=== PATIENT | male | born 1935 | race Caucasian/White ===

== ENCOUNTER 2023-03-24 07:58 | Outpatient (RCR) | payer MEDICARE, SELFPAY ==
[2023-03-24 09:38] LABS: MANUAL DIFF FLAG NO
[2023-03-24 09:48] LABS: Basophils Percent Auto 0.2 % (0-2); Eosinophils Absolute Auto 0.3 X10*3/uL (0.0-0.4); Eosinophils Percent Auto 3.2 % (0-4); Hematocrit 39.3 % (42.0-52.0); Hemoglobin 12.7 g/dl (14.0-18.0); Imm Gran Abs Auto 0.03 X10*3/uL (0.00-0.03); Imm Gran Pct Auto 0.4 % (0.0-0.4); Lymphocytes Absolute Auto 1.1 X10*3/uL (1.2-4.9); Lymphocytes Percent Auto 14.1 % (20-40); Mean Corpuscular HGB Conc 32.3 g/dl (31.0-36.0); Mean Corpuscular Hemoglobin 29.9 pg (27.0-33.0); Mean Corpuscular Volume 92.5 fL (80.0-98.0); Monocytes Absolute Auto 0.8 X10*3/uL (0.1-1.2); Monocytes Percent Auto 9.5 % (2-11); Neutrophils Absolute Auto 5.9 x10*3/uL (2.0-8.3); Neutrophils Percent Auto 72.6 % (45-73); Platelet Count 217 X10*3/uL (160-400); Red Blood Count 4.25 X10*6/uL (4.60-5.80); Red Cell Distribution Width 13.4 % (11.0-16.0); White Blood Count 8.1 X10*3/uL (4.8-10.8)
[2023-03-24 10:09] LABS: Estimated Average Glucose 131 mg/dL; Hemoglobin A1c % 6.2 %
[2023-03-24 10:26] LABS: Erythrocyte Sedimentation Rate 23 MM/HR (0-15)
[2023-03-24 10:33] LABS: Anion Gap 14 (12-20); Blood Urea Nitrogen 16 mg/dL (9-16); C Reactive Protein < 0.10 mg/dL (< or = 0.50); Calcium 9.3 mg/dL (8.4-10.2); Carbon Dioxide 25 mmol/L (22-29); Chloride 106 mmol/L (96-108); Estimated Glomerular Filt Rate > 60; Glucose Random 135 mg/dL (60-115); Potassium 4.6 mmol/L (3.3-5.1); Sodium 140 mmol/L (135-145)
== END 2023-07-14 10:15 | disposition home or self-care (01) ==
LOC: HO.WCC 07:58
PROVIDERS: Visit Provider Physician Assistant
DX: Z09 Encounter for follow-up examination after completed treatment for conditions other than malignant neoplasm (principal); I73.9 Peripheral vascular disease, unspecified; G60.9 Hereditary and idiopathic neuropathy, unspecified; M86.471 Chronic osteomyelitis with draining sinus, right ankle and foot; L60.2 Onychogryphosis; I10 Essential (primary) hypertension; Z87.891 Personal history of nicotine dependence; Z87.2 Personal history of diseases of the skin and subcutaneous tissue
CPT/HCPCS: 11042; 36415; 73630; 80048; 83036; 84134; 85025; 85652; 86140; 97597; 99212

== ENCOUNTER 2023-05-08 13:06 | Outpatient (AMB) | payer MEDICARE, SELFPAY ==
[2023-05-08 13:28] VITALS: BP 130/70; PULSE 68; O2SAT 95; BMI 27.3
--- NOTE | 2023-05-08 13:28 | A.OFFVIS_ITS ---
Intake Vital Signs 05/08/23 13:28 Height 5 ft 5 in Weight 164 lb BMI 27.3 BP 130/70 Blood Pressure Location Lt brachial Position Sitting Pulse 68 Pulse Source Pulse Oximeter Pulse Oximetry (%) 95 Intake Visit Reasons: Ref.wound care,Osteomyelitis/R.great toe ulcer Allergies No Known Allergies Allergy (Verified 05/08/23 13:36) HPI Ref.wound care,Osteomyelitis/R.great toe ulcer HPI Details He presents with right great toe ulcer. He is a referral from [facility]. He has XR right great toe shows OM. He has had ulcer since January. He has OM distal great toe on right toe. [facility] Medical History (Updated 05/10/23 @ 22:36 by Bella Leblanc MD) Peripheral vascular disease Surgical History (Updated 05/10/23 @ 22:39 by Bella Leblanc MD) Osteomyelitis Review of Systems Const All systems reviewed & are unremarkable except as noted in HPI and below Physical Exam Vital Signs: Last Vital Signs Pulse 68 05/08/23 13:28 BP 130/70 05/08/23 13:28 Pulse Ox 95 05/08/23 13:28 BMI result Body Mass Index 27.3 Const Other: General: cooperative Orientation/consciousness: patient oriented x3 HEENT Head: Yes normal to inspection Mouth: Normal oral and palatal mucosa present Eyes General: appearance normal, both eyes and all related structures Pupils: Equal, round and reactive pupils present Resp Effort & Inspection: normal respiratory effort Cardio Rate: regular rate Rhythm: regular rhythm GI Palpation (GI): Soft to palpation and nontender General: Yes no CVA tenderness Back/Spine/Pelvis Back: no CVA tenderness Skin General skin exam: no rashes or lesions noted Neuro General: patient oriented x3 Cranial nerves: Yes CN's II-XII intact bilaterally and Yes Equal, round and reactive pupils present Extrem Other: right great toe ulcer neuropathy pulses Psych Appearance: grossly normal Assessment & Plan Assessment & Plan (1) Osteomyelitis: Comment: He has OM and creatinine .7 so can take full dose antibiotics. He has no specific organism offered. Code(s): M86.9 - Osteomyelitis, unspecified Plan: Ertapenem daily for six weeks. Check weekly CBC,creatinine and SGOT. Orders: Orders Creatinine 05/08/23 M86.9 - Osteomyelitis, unspecified Complete Blood Count Auto Diff 05/08/23 M86.9 - Osteomyelitis, unspecified Erythrocyte Sedimentation Rate 05/08/23 M86.9 - Osteomyelitis, unspecified IR cvc insert peripheral 05/08/23 M86.9 - Osteomyelitis, unspecified Medications: New ertapenem 1 g IV Q24H 42 days 42 ea 0RF ertapenem 1 g IV Q24H 42 days 42 ea 0RF ertapenem 1 g IV Q24H 42 days 42 ea 0RF ertapenem 1 g IV Q24H 42 days 42 ea 0RF Coding Level of Care Code New Pt Level 3 (84460) Diagnoses Osteomyelitis M86.9
== END 2023-05-08 13:57 | disposition home or self-care (01) ==
LOC: HO.HID 13:06
PROVIDERS: Visit Provider Internal Medicine
DX: M86.9 Osteomyelitis, unspecified (principal)
CPT/HCPCS: 99203

== ENCOUNTER 2023-05-08 13:06 | Outpatient (REF) | payer MEDICARE, SELFPAY ==
[2023-05-08 14:10] LABS: MANUAL DIFF FLAG NO
[2023-05-08 14:24] LABS: Basophils Percent Auto 0.2 % (0-2); Eosinophils Absolute Auto 0.1 X10*3/uL (0.0-0.4); Eosinophils Percent Auto 1.4 % (0-4); Hematocrit 37.9 % (42.0-52.0); Hemoglobin 12.2 g/dl (14.0-18.0); Imm Gran Abs Auto 0.04 X10*3/uL (0.00-0.03); Imm Gran Pct Auto 0.4 % (0.0-0.4); Lymphocytes Absolute Auto 1.4 X10*3/uL (1.2-4.9); Lymphocytes Percent Auto 15.6 % (20-40); Mean Corpuscular HGB Conc 32.2 g/dl (31.0-36.0); Mean Corpuscular Hemoglobin 29.4 pg (27.0-33.0); Mean Corpuscular Volume 91.3 fL (80.0-98.0); Mean Platelet Volume 8.9 fL (9.4-12.4); Monocytes Absolute Auto 0.9 X10*3/uL (0.1-1.2); Monocytes Percent Auto 9.7 % (2-11); Neutrophils Absolute Auto 6.7 x10*3/uL (2.0-8.3); Neutrophils Percent Auto 72.7 % (45-73); Platelet Count 204 X10*3/uL (160-400); Red Blood Count 4.15 X10*6/uL (4.60-5.80); Red Cell Distribution Width 13.6 % (11.0-16.0); White Blood Count 9.3 X10*3/uL (4.8-10.8)
[2023-05-08 15:06] LABS: Erythrocyte Sedimentation Rate 21 MM/HR (0-15)
[2023-05-08 15:21] LABS: Estimated Glomerular Filt Rate > 60
--- NOTE | 2023-05-13 15:28 | PC.NURSE ---
This RN called Pt today offering to place PICC line that was ordered by Dr. Leblanc for treatment of osteomyelitis. Pt declined offer for placement today and stated that he needed to talk to my other doctor, im not sure i want to do this this RN offered to answer any questions regarding the PICC line and stressed the importance of treatment, pt declined. Dr Leblanc made aware.
== END 2023-05-08 13:07 | disposition home or self-care (01) ==
LOC: HO.LAB 13:06
PROVIDERS: Visit Provider Internal Medicine
DX: M86.9 Osteomyelitis, unspecified (principal); L97.519 Non-pressure chronic ulcer of other part of right foot with unspecified severity
CPT/HCPCS: 36415; 82565; 85025; 85652; 99202

== ENCOUNTER → 2023-06-02 08:29 | Day surgery (SDC) | payer MEDICARE, SELFPAY ==
--- NOTE | 2023-06-02 16:47 | P.PICC_ITS ---
PICC Line Insertion NPICC Diagnosis: Osteomyelitis Indication: Alf antibiotics needed Pertinent Labs: reviewed Technique: Following informed consent including risks, benefits and alternatives and using sterile technique including cap and mask, sterile gown, glove and drape, the right arm was prepped and draped in the usual sterile fashion of full barrier technique with CHG. Following completion of [place] Protocol the skin and soft tissues were anesthetized with 1% Lidocaine plain. Using ultrasound guidance, right basilic, brachial and cephalic vein access was obtained by Kaylynn Mcmillan RN, but unable to pass guidewire. Sterile field was broken down and new sterile field set up on left arm. Left basilic and brachial veins were accessed several times by Kaylynn Mcmillan RN and Nasreen Wilkins RN, but not able to advance guidewire. Left Brachial vein was accessed by Dr Aragon. Over an 0.018 wire through peel-away sheath, a 4FR single lumen PASV PICC line was positioned. Catheter length is 43 CM internal length, PICC is at the 0 CM external irais, for a total trimmed length of 43 CM. The procedure was performed in S272. Tip verification was performed by Mishel Cuevas with Sherlock 3CG. Tip located in SVC. Ultrasound was used to document vein patency and for needle entry. A formal ultrasound picture and cardiac rhythm strip was recorded. Vascular Log Stacker Operator has released the line for use and it is currently dressed with a StatLock, Tegaderm, and CHG disc. Verification has been performed for blood return and line patency. Arm Circumference: 24 CM Equipment: [employer] SOLO Catheter Type: 4FR single lumen PASV PICC Lot #: [id number]
== END ==
PROVIDERS: Radiology Vascular & Interventional Radiology; PCP Internal Medicine; Visit Provider Internal Medicine
DX: M86.9 Osteomyelitis, unspecified (principal)
CPT/HCPCS: 36573; 96365; C1751; J1335

== ENCOUNTER 2023-06-02 15:41 | Outpatient (REF) | payer MEDICARE, SELFPAY | END 2023-06-02 15:42 | disposition home or self-care (01) | LOC: HO.MDS 15:41 | PROVIDERS: Visit Provider Internal Medicine | DX: M86.9 Osteomyelitis, unspecified (principal) | CPT/HCPCS: J1335 ==

== ENCOUNTER 2023-06-03 10:59 | Outpatient (REF) | payer MEDICARE, SELFPAY | END 2023-06-03 11:00 | disposition home or self-care (01) | LOC: HO.MDS 10:59 | PROVIDERS: Visit Provider Internal Medicine | DX: M86.9 Osteomyelitis, unspecified (principal) | CPT/HCPCS: 96365; J1335 ==

== ENCOUNTER 2023-06-04 10:48 | Outpatient (REF) | payer MEDICARE, SELFPAY | END 2023-06-04 10:49 | disposition home or self-care (01) | LOC: HO.MDS 10:48 | PROVIDERS: Visit Provider Internal Medicine | DX: M86.9 Osteomyelitis, unspecified (principal) | CPT/HCPCS: 96365; J1335 ==

== ENCOUNTER 2023-06-05 10:56 | Outpatient (REF) | payer MEDICARE, SELFPAY | END 2023-06-05 10:57 | disposition home or self-care (01) | LOC: HO.MDS 10:56 | PROVIDERS: Visit Provider Internal Medicine | DX: M86.9 Osteomyelitis, unspecified (principal) | CPT/HCPCS: 96365; J1335 ==

== ENCOUNTER 2023-06-06 09:56 | Outpatient (REF) | payer MEDICARE, SELFPAY | END 2023-06-06 09:57 | disposition home or self-care (01) | LOC: HO.MDS 09:56 | PROVIDERS: PCP Internal Medicine; Visit Provider Internal Medicine | DX: M86.9 Osteomyelitis, unspecified (principal) | CPT/HCPCS: 96365; J1335 ==

== ENCOUNTER 2023-06-07 09:53 | Outpatient (REF) | payer MEDICARE, SELFPAY | END 2023-06-07 09:54 | disposition home or self-care (01) | LOC: HO.MDS 09:53 | PROVIDERS: Visit Provider Internal Medicine | DX: M86.9 Osteomyelitis, unspecified (principal) | CPT/HCPCS: 96365; J1335 ==

== ENCOUNTER 2023-06-08 10:53 | Outpatient (REF) | payer MEDICARE, SELFPAY | END 2023-06-08 10:54 | disposition home or self-care (01) | LOC: HO.MDS 10:53 | PROVIDERS: Visit Provider Internal Medicine | DX: M86.9 Osteomyelitis, unspecified (principal) | CPT/HCPCS: 96365; J1335 ==

== ENCOUNTER 2023-06-09 10:50 | Outpatient (REF) | payer MEDICARE, SELFPAY | END 2023-06-09 10:51 | disposition home or self-care (01) | LOC: HO.MDS 10:50 | PROVIDERS: Visit Provider Internal Medicine | DX: M86.9 Osteomyelitis, unspecified (principal) | CPT/HCPCS: 96365; J1335 ==

== ENCOUNTER 2023-06-10 10:28 | Outpatient (REF) | payer MEDICARE, SELFPAY | END 2023-06-10 10:29 | disposition home or self-care (01) | LOC: HO.MDS 10:28 | PROVIDERS: Visit Provider Internal Medicine | DX: M86.9 Osteomyelitis, unspecified (principal) | CPT/HCPCS: 36415; 80076; 96365; 99212; J1335 ==

== ENCOUNTER 2023-06-10 11:20 | Outpatient (AMB) | payer MEDICARE, SELFPAY ==
--- NOTE | 2023-06-10 11:28 | A.OFFVIS_ITS ---
Intake Vital Signs 3 06/10/23 11:29 Height 5 ft 5 in Weight 158 lb BMI 26.3 BP 110/80 Blood Pressure Location Rt brachial Position Sitting Pulse 70 Pulse Source Pulse Oximeter Pulse Oximetry (%) 98 Intake Visit Reasons: f/u 2 wks.lab Allergies No Known Allergies Allergy (Verified 05/08/23 13:36) HPI f/u 2 wks.lab 2 HPI0 Details He is finishing Ertapenem. He has no complaints. [facility] Medical History (Updated 05/10/23 @ 22:36 by Bella Leblanc MD) Peripheral vascular disease Surgical History Osteomyelitis Social History Advance Directives Date on File: 06/02/23 Review of Systems Const All systems reviewed & are unremarkable except as noted in HPI and below Physical Exam Vital Signs: Last Vital Signs Pulse 70 06/10/23 11:29 BP 110/80 06/10/23 11:29 Pulse Ox 98 06/10/23 11:29 BMI result Body Mass Index 26.3 Const Other: General: cooperative Orientation/consciousness: patient oriented x3 HEENT Head: Yes normal to inspection Mouth: Normal oral and palatal mucosa present Eyes General: appearance normal, both eyes and all related structures Pupils: Equal, round and reactive pupils present Resp Effort & Inspection: normal respiratory effort Cardio Rate: regular rate Rhythm: regular rhythm GI Palpation (GI): Soft to palpation and nontender General: Yes no CVA tenderness Back/Spine/Pelvis Back: no CVA tenderness Skin General skin exam: no rashes or lesions noted Neuro General: patient oriented x3 Cranial nerves: Yes CN's II-XII intact bilaterally and Yes Equal, round and reactive pupils present Extrem Other: improved area lower extremity General: Yes normal to inspection Psych Appearance: grossly normal Assessment & Plan Assessment & Plan (1) Osteomyelitis: Comment: He has OM and creatinine .7 so can take full dose antibiotics. He has no specific organism offered. Code(s): M86.9 - Osteomyelitis, unspecified Plan: Continue Ertapenem. Check labs as directed. See as scheduled Orders: Orders 2 Creatinine 06/16/23 M86.9 - Osteomyelitis, unspecified Complete Blood Count Auto Diff 2 Weeks M86.9 - Osteomyelitis, unspecified Creatinine 2 Weeks M86.9 - Osteomyelitis, unspecified Complete Blood Count Auto Diff 3 Weeks M86.9 - Osteomyelitis, unspecified Creatinine 3 Weeks M86.9 - Osteomyelitis, unspecified Liver Panel 06/10/23 M86.9 - Osteomyelitis, unspecified Complete Blood Count Auto Diff 4 Weeks M86.9 - Osteomyelitis, unspecified Liver Panel 4 Weeks M86.9 - Osteomyelitis, unspecified Complete Blood Count Auto Diff 06/16/23 M86.9 - Osteomyelitis, unspecified Liver Panel 06/16/23 M86.9 - Osteomyelitis, unspecified Liver Panel 2 Weeks M86.9 - Osteomyelitis, unspecified Creatinine 4 Weeks M86.9 - Osteomyelitis, unspecified Coding Level of Care Code Est Pt Level 3 (68676) Diagnoses Osteomyelitis M86.9
[2023-06-10 11:29] VITALS: BP 110/80; PULSE 70; O2SAT 98; BMI 26.3
== END 2023-06-10 15:11 | disposition home or self-care (01) ==
LOC: HO.HID 11:20
PROVIDERS: PCP Internal Medicine; Visit Provider Internal Medicine
DX: M86.9 Osteomyelitis, unspecified (principal)
CPT/HCPCS: 99213

== ENCOUNTER 2023-06-10 12:03 | Outpatient (REF) | payer MEDICARE, SELFPAY ==
[2023-06-10 13:59] LABS: Alanine Aminotransferase 79 U/L (0-40); Albumin Level 3.9 g/dL (3.5-5.0); Alkaline Phosphatase 73 U/L (39-117); Aspartate Amino Transferase 58 U/L (5-37); Bilirubin Direct 0.3 mg/dL (0.0-0.5); Bilirubin Total 0.7 mg/dL (0.0-1.0); Total Protein 7.1 g/dL (6.5-8.0)
== END 2023-06-10 12:04 | disposition home or self-care (01) ==
LOC: HO.LAB 12:03
PROVIDERS: PCP Internal Medicine; Visit Provider Internal Medicine
DX: Z13.89 Encounter for screening for other disorder (principal)
CPT/HCPCS: 36415; 80076

== ENCOUNTER 2023-06-11 10:47 | Outpatient (REF) | payer MEDICARE, SELFPAY | END 2023-06-11 10:48 | disposition home or self-care (01) | LOC: HO.MDS 10:47 | PROVIDERS: Visit Provider Internal Medicine | DX: M86.9 Osteomyelitis, unspecified (principal) | CPT/HCPCS: 96365; J1335 ==

== ENCOUNTER 2023-06-12 13:04 | Outpatient (REF) | payer MEDICARE, SELFPAY | END 2023-06-12 13:05 | disposition home or self-care (01) | LOC: HO.MDS 13:04 | PROVIDERS: Visit Provider Internal Medicine | DX: M86.9 Osteomyelitis, unspecified (principal) | CPT/HCPCS: 96365; J1335 ==

== ENCOUNTER 2023-06-13 09:50 | Outpatient (REF) | payer MEDICARE, SELFPAY | END 2023-06-13 09:51 | disposition home or self-care (01) | LOC: HO.MDS 09:50 | PROVIDERS: PCP Internal Medicine Medical Oncology; Visit Provider Internal Medicine | DX: M86.9 Osteomyelitis, unspecified (principal) | CPT/HCPCS: 96365; J1335 ==

== ENCOUNTER 2023-06-14 09:20 | Outpatient (REF) | payer MEDICARE, SELFPAY | END 2023-06-14 09:21 | disposition home or self-care (01) | LOC: HO.MDS 09:20 | PROVIDERS: Visit Provider Internal Medicine | DX: M86.9 Osteomyelitis, unspecified (principal) | CPT/HCPCS: 96365; J1335 ==

== ENCOUNTER 2023-06-15 10:52 | Outpatient (REF) | payer MEDICARE, SELFPAY | END 2023-06-15 10:53 | disposition home or self-care (01) | LOC: HO.MDS 10:52 | PROVIDERS: Visit Provider Internal Medicine | DX: M86.9 Osteomyelitis, unspecified (principal) | CPT/HCPCS: 96365; J1335 ==

== ENCOUNTER 2023-06-16 10:00 | Outpatient (REF) | payer MEDICARE, SELFPAY ==
[2023-06-16 10:21] LABS: MANUAL DIFF FLAG NO
[2023-06-16 10:42] LABS: Basophils Percent Auto 0.3 % (0-2); Eosinophils Absolute Auto 0.2 X10*3/uL (0.0-0.4); Eosinophils Percent Auto 2.8 % (0-4); Hematocrit 37.6 % (42.0-52.0); Imm Gran Abs Auto 0.03 X10*3/uL (0.00-0.03); Imm Gran Pct Auto 0.5 % (0.0-0.4); Lymphocytes Absolute Auto 1.3 X10*3/uL (1.2-4.9); Lymphocytes Percent Auto 19.9 % (20-40); Mean Corpuscular HGB Conc 31.9 g/dl (31.0-36.0); Mean Corpuscular Hemoglobin 29.9 pg (27.0-33.0); Mean Corpuscular Volume 93.8 fL (80.0-98.0); Mean Platelet Volume 9.8 fL (9.4-12.4); Monocytes Absolute Auto 0.7 X10*3/uL (0.1-1.2); Monocytes Percent Auto 10.1 % (2-11); Neutrophils Absolute Auto 4.3 x10*3/uL (2.0-8.3); Neutrophils Percent Auto 66.4 % (45-73); Platelet Count 182 X10*3/uL (160-400); Red Blood Count 4.01 X10*6/uL (4.60-5.80); Red Cell Distribution Width 13.7 % (11.0-16.0); White Blood Count 6.4 X10*3/uL (4.8-10.8)
[2023-06-16 11:48] LABS: Alanine Aminotransferase 140 U/L (0-40); Albumin Level 3.6 g/dL (3.5-5.0); Alkaline Phosphatase 75 U/L (39-117); Aspartate Amino Transferase 88 U/L (5-37); Bilirubin Direct 0.3 mg/dL (0.0-0.5); Bilirubin Total 0.6 mg/dL (0.0-1.0); Estimated Glomerular Filt Rate > 60; Total Protein 6.6 g/dL (6.5-8.0)
== END 2023-06-16 10:01 | disposition home or self-care (01) ==
LOC: HO.MDS 10:00
PROVIDERS: PCP Internal Medicine Medical Oncology; Visit Provider Internal Medicine
DX: M86.9 Osteomyelitis, unspecified (principal)
CPT/HCPCS: 36415; 80076; 82565; 85025; 96365; J1335

== ENCOUNTER 2023-06-17 10:51 | Outpatient (REF) | payer MEDICARE, SELFPAY | END 2023-06-17 10:52 | disposition home or self-care (01) | LOC: HO.MDS 10:51 | PROVIDERS: Visit Provider Internal Medicine | DX: M86.9 Osteomyelitis, unspecified (principal) | CPT/HCPCS: 96365; J1335 ==

== ENCOUNTER 2023-06-18 10:51 | Outpatient (REF) | payer MEDICARE, SELFPAY | END 2023-06-18 10:52 | disposition home or self-care (01) | LOC: HO.MDS 10:51 | PROVIDERS: Visit Provider Internal Medicine | DX: M86.9 Osteomyelitis, unspecified (principal) | CPT/HCPCS: 96365; J1335 ==

== ENCOUNTER 2023-06-19 10:47 | Outpatient (REF) | payer MEDICARE, SELFPAY | END 2023-06-19 10:48 | disposition home or self-care (01) | LOC: HO.MDS 10:47 | PROVIDERS: Visit Provider Internal Medicine | DX: M86.9 Osteomyelitis, unspecified (principal) | CPT/HCPCS: 96365; J1335 ==

== ENCOUNTER 2023-06-20 09:56 | Outpatient (REF) | payer MEDICARE, SELFPAY | END 2023-06-20 09:57 | disposition home or self-care (01) | LOC: HO.MDS 09:56 | PROVIDERS: Visit Provider Internal Medicine | DX: M86.9 Osteomyelitis, unspecified (principal) | CPT/HCPCS: 96365; J1335 ==

== ENCOUNTER 2023-06-21 09:20 | Outpatient (REF) | payer MEDICARE, SELFPAY | END 2023-06-21 09:21 | disposition home or self-care (01) | LOC: HO.MDS 09:20 | PROVIDERS: PCP Internal Medicine Medical Oncology; Visit Provider Internal Medicine | DX: M86.9 Osteomyelitis, unspecified (principal) | CPT/HCPCS: 96365; J1335 ==

== ENCOUNTER 2023-06-22 10:50 | Outpatient (REF) | payer MEDICARE, SELFPAY | END 2023-06-22 10:51 | disposition home or self-care (01) | LOC: HO.MDS 10:50 | PROVIDERS: Visit Provider Internal Medicine | DX: M86.9 Osteomyelitis, unspecified (principal) | CPT/HCPCS: 96365; J1335 ==

== ENCOUNTER 2023-06-23 10:04 | Outpatient (REF) | payer MEDICARE, SELFPAY ==
[2023-06-23 10:21] LABS: MANUAL DIFF FLAG NO
[2023-06-23 10:34] LABS: Basophils Percent Auto 0.4 % (0-2); Eosinophils Absolute Auto 0.2 X10*3/uL (0.0-0.4); Eosinophils Percent Auto 4.1 % (0-4); Hematocrit 38.7 % (42.0-52.0); Hemoglobin 12.4 g/dl (14.0-18.0); Imm Gran Abs Auto 0.02 X10*3/uL (0.00-0.03); Imm Gran Pct Auto 0.4 % (0.0-0.4); Lymphocytes Absolute Auto 1.3 X10*3/uL (1.2-4.9); Lymphocytes Percent Auto 23.7 % (20-40); Mean Corpuscular Hemoglobin 30.1 pg (27.0-33.0); Mean Corpuscular Volume 93.9 fL (80.0-98.0); Mean Platelet Volume 9.7 fL (9.4-12.4); Monocytes Absolute Auto 0.6 X10*3/uL (0.1-1.2); Monocytes Percent Auto 11.2 % (2-11); Neutrophils Absolute Auto 3.4 x10*3/uL (2.0-8.3); Neutrophils Percent Auto 60.2 % (45-73); Platelet Count 169 X10*3/uL (160-400); Red Blood Count 4.12 X10*6/uL (4.60-5.80); Red Cell Distribution Width 13.5 % (11.0-16.0); White Blood Count 5.6 X10*3/uL (4.8-10.8)
[2023-06-23 11:10] LABS: Alanine Aminotransferase 107 U/L (0-40); Albumin Level 3.7 g/dL (3.5-5.0); Alkaline Phosphatase 81 U/L (39-117); Aspartate Amino Transferase 67 U/L (5-37); Bilirubin Direct 0.2 mg/dL (0.0-0.5); Bilirubin Total 0.6 mg/dL (0.0-1.0); Estimated Glomerular Filt Rate > 60; Total Protein 6.8 g/dL (6.5-8.0)
== END 2023-06-23 10:05 | disposition home or self-care (01) ==
LOC: HO.MDS 10:04
PROVIDERS: PCP Internal Medicine; Visit Provider Internal Medicine
DX: M86.9 Osteomyelitis, unspecified (principal)
CPT/HCPCS: 36415; 80076; 82565; 85025; 96365; J1335

== ENCOUNTER → 2023-06-23 10:23 | Day surgery (SDC) | payer MEDICARE, SELFPAY | PROVIDERS: PCP Internal Medicine; Visit Provider Internal Medicine | DX: M86.9 Osteomyelitis, unspecified (principal) ==

== ENCOUNTER 2023-06-24 10:46 | Outpatient (REF) | payer MEDICARE, SELFPAY | END 2023-06-24 10:47 | disposition home or self-care (01) | LOC: HO.MDS 10:46 | PROVIDERS: PCP Internal Medicine; Visit Provider Internal Medicine | DX: M86.9 Osteomyelitis, unspecified (principal) | CPT/HCPCS: 96365; J1335 ==

== ENCOUNTER 2023-06-25 10:51 | Outpatient (REF) | payer MEDICARE, SELFPAY | END 2023-06-25 10:52 | disposition home or self-care (01) | LOC: HO.MDS 10:51 | PROVIDERS: Visit Provider Internal Medicine | DX: M86.9 Osteomyelitis, unspecified (principal) | CPT/HCPCS: 96365; J1335 ==

== ENCOUNTER 2023-06-26 10:47 | Outpatient (REF) | payer MEDICARE, SELFPAY | END 2023-06-26 10:48 | disposition home or self-care (01) | LOC: HO.MDS 10:47 | PROVIDERS: Visit Provider Internal Medicine | DX: M86.9 Osteomyelitis, unspecified (principal) | CPT/HCPCS: 96365; J1335 ==

== ENCOUNTER 2023-06-27 09:54 | Outpatient (REF) | payer MEDICARE, SELFPAY | END 2023-06-27 09:55 | disposition home or self-care (01) | LOC: HO.MDS 09:54 | PROVIDERS: Visit Provider Internal Medicine | DX: M86.9 Osteomyelitis, unspecified (principal) | CPT/HCPCS: 96365; J1335 ==

== ENCOUNTER 2023-06-28 09:16 | Outpatient (REF) | payer MEDICARE, SELFPAY | END 2023-06-28 09:17 | disposition home or self-care (01) | LOC: HO.MDS 09:16 | PROVIDERS: Visit Provider Internal Medicine | DX: M86.9 Osteomyelitis, unspecified (principal) | CPT/HCPCS: 96365; J1335 ==

== ENCOUNTER 2023-06-29 10:51 | Outpatient (REF) | payer MEDICARE, SELFPAY | END 2023-06-29 10:52 | disposition home or self-care (01) | LOC: HO.MDS 10:51 | PROVIDERS: Visit Provider Internal Medicine | DX: M86.9 Osteomyelitis, unspecified (principal) | CPT/HCPCS: 96365; J1335 ==

== ENCOUNTER 2023-06-30 10:22 | Outpatient (REF) | payer MEDICARE, SELFPAY ==
[2023-06-30 10:38] LABS: MANUAL DIFF FLAG NO
[2023-06-30 12:47] LABS: Basophils Percent Auto 0.2 % (0-2); Eosinophils Absolute Auto 0.2 X10*3/uL (0.0-0.4); Eosinophils Percent Auto 4.3 % (0-4); Hematocrit 38.7 % (42.0-52.0); Hemoglobin 12.4 g/dl (14.0-18.0); Imm Gran Abs Auto 0.02 X10*3/uL (0.00-0.03); Imm Gran Pct Auto 0.4 % (0.0-0.4); Lymphocytes Absolute Auto 1.4 X10*3/uL (1.2-4.9); Mean Corpuscular Hemoglobin 29.5 pg (27.0-33.0); Mean Corpuscular Volume 92.1 fL (80.0-98.0); Mean Platelet Volume 10.1 fL (9.4-12.4); Monocytes Absolute Auto 0.5 X10*3/uL (0.1-1.2); Monocytes Percent Auto 9.6 % (2-11); Neutrophils Absolute Auto 3.4 x10*3/uL (2.0-8.3); Neutrophils Percent Auto 60.5 % (45-73); Platelet Count 153 X10*3/uL (160-400); Red Cell Distribution Width 13.3 % (11.0-16.0); White Blood Count 5.6 X10*3/uL (4.8-10.8)
[2023-06-30 13:29] LABS: Alanine Aminotransferase 75 U/L (0-40); Albumin Level 3.7 g/dL (3.5-5.0); Alkaline Phosphatase 79 U/L (39-117); Aspartate Amino Transferase 48 U/L (5-37); Bilirubin Direct 0.3 mg/dL (0.0-0.5); Bilirubin Total 0.6 mg/dL (0.0-1.0); Estimated Glomerular Filt Rate > 60; Total Protein 6.8 g/dL (6.5-8.0)
== END 2023-06-30 10:23 | disposition home or self-care (01) ==
LOC: HO.LAB 10:22
PROVIDERS: PCP Internal Medicine Medical Oncology; Visit Provider Internal Medicine
DX: Z13.89 Encounter for screening for other disorder (principal)
CPT/HCPCS: 36415; 80076; 82565; 85025

== ENCOUNTER 2023-06-30 10:38 | Outpatient (REF) | payer MEDICARE, SELFPAY | END 2023-06-30 10:39 | disposition home or self-care (01) | LOC: HO.MDS 10:38 | PROVIDERS: Visit Provider Internal Medicine | DX: M86.9 Osteomyelitis, unspecified (principal) | CPT/HCPCS: 36415; 80076; 82565; 85025; 96365; J1335 ==

== ENCOUNTER 2023-07-01 10:56 | Outpatient (REF) | payer MEDICARE, SELFPAY | END 2023-07-01 10:57 | disposition home or self-care (01) | LOC: HO.MDS 10:56 | PROVIDERS: PCP Internal Medicine; Visit Provider Internal Medicine | DX: M86.9 Osteomyelitis, unspecified (principal) | CPT/HCPCS: 96365; J1335 ==

== ENCOUNTER 2023-07-02 10:46 | Outpatient (REF) | payer MEDICARE, SELFPAY | END 2023-07-02 10:47 | disposition home or self-care (01) | LOC: HO.MDS 10:46 | PROVIDERS: Visit Provider Internal Medicine | DX: M86.9 Osteomyelitis, unspecified (principal) | CPT/HCPCS: 96365; J1335 ==

== ENCOUNTER 2023-07-03 10:45 | Outpatient (REF) | payer MEDICARE, SELFPAY | END 2023-07-03 10:46 | disposition home or self-care (01) | LOC: HO.MDS 10:45 | PROVIDERS: Visit Provider Internal Medicine | DX: M86.9 Osteomyelitis, unspecified (principal) | CPT/HCPCS: 96365; J1335 ==

== ENCOUNTER 2023-07-04 09:53 | Outpatient (REF) | payer MEDICARE, SELFPAY | END 2023-07-04 09:54 | disposition home or self-care (01) | LOC: HO.MDS 09:53 | PROVIDERS: Visit Provider Internal Medicine | DX: M86.9 Osteomyelitis, unspecified (principal) | CPT/HCPCS: 96365; J1335 ==

== ENCOUNTER 2023-07-05 09:27 | Outpatient (REF) | payer MEDICARE, SELFPAY | END 2023-07-05 09:28 | disposition home or self-care (01) | LOC: HO.MDS 09:27 | PROVIDERS: Visit Provider Internal Medicine | DX: M86.9 Osteomyelitis, unspecified (principal) | CPT/HCPCS: 96365; J1335 ==

== ENCOUNTER 2023-07-06 09:23 | Outpatient (REF) | payer MEDICARE, SELFPAY | END 2023-07-06 09:24 | disposition home or self-care (01) | LOC: HO.MDS 09:23 | PROVIDERS: PCP Internal Medicine Medical Oncology; Visit Provider Internal Medicine | DX: M86.9 Osteomyelitis, unspecified (principal) | CPT/HCPCS: 96365; J1335 ==

== ENCOUNTER 2023-07-07 09:38 | Outpatient (REF) | payer MEDICARE, SELFPAY ==
[2023-07-07 09:56] LABS: MANUAL DIFF FLAG NO
[2023-07-07 10:54] LABS: Basophils Percent Auto 0.2 % (0-2); Eosinophils Absolute Auto 0.3 X10*3/uL (0.0-0.4); Eosinophils Percent Auto 4.5 % (0-4); Hematocrit 38.1 % (42.0-52.0); Hemoglobin 12.4 g/dl (14.0-18.0); Imm Gran Abs Auto 0.02 X10*3/uL (0.00-0.03); Imm Gran Pct Auto 0.3 % (0.0-0.4); Lymphocytes Absolute Auto 1.5 X10*3/uL (1.2-4.9); Lymphocytes Percent Auto 23.6 % (20-40); Mean Corpuscular HGB Conc 32.5 g/dl (31.0-36.0); Mean Corpuscular Hemoglobin 29.8 pg (27.0-33.0); Mean Corpuscular Volume 91.6 fL (80.0-98.0); Mean Platelet Volume 9.8 fL (9.4-12.4); Monocytes Absolute Auto 0.7 X10*3/uL (0.1-1.2); Monocytes Percent Auto 10.9 % (2-11); Neutrophils Absolute Auto 3.8 x10*3/uL (2.0-8.3); Neutrophils Percent Auto 60.5 % (45-73); Platelet Count 169 X10*3/uL (160-400); Red Blood Count 4.16 X10*6/uL (4.60-5.80); Red Cell Distribution Width 13.2 % (11.0-16.0); White Blood Count 6.2 X10*3/uL (4.8-10.8)
[2023-07-07 12:03] LABS: Estimated Glomerular Filt Rate > 60
== END 2023-07-07 09:39 | disposition home or self-care (01) ==
LOC: HO.LAB 09:38
PROVIDERS: Visit Provider Internal Medicine
DX: Z13.89 Encounter for screening for other disorder (principal)
CPT/HCPCS: 36415; 82565; 85025

== ENCOUNTER 2023-07-07 09:56 | Outpatient (REF) | payer MEDICARE, SELFPAY | END 2023-07-07 09:57 | disposition home or self-care (01) | LOC: HO.MDS 09:56 | PROVIDERS: Visit Provider Internal Medicine | DX: M86.9 Osteomyelitis, unspecified (principal) | CPT/HCPCS: 36415; 82565; 85025; 96365; J1335 ==

== ENCOUNTER 2023-07-08 11:00 | Outpatient (REF) | payer MEDICARE, SELFPAY | END 2023-07-08 11:01 | disposition home or self-care (01) | LOC: HO.MDS 11:00 | PROVIDERS: Visit Provider Internal Medicine | DX: M86.9 Osteomyelitis, unspecified (principal) | CPT/HCPCS: 96365; J1335 ==

== ENCOUNTER 2023-07-09 12:10 | Outpatient (REF) | payer MEDICARE, SELFPAY | END 2023-07-09 12:11 | disposition home or self-care (01) | LOC: HO.MDS 12:10 | PROVIDERS: Visit Provider Internal Medicine | DX: M86.9 Osteomyelitis, unspecified (principal) | CPT/HCPCS: 96365; J1335 ==

== ENCOUNTER 2023-07-10 10:03 | Outpatient (REF) | payer MEDICARE, SELFPAY | END 2023-07-10 10:04 | disposition home or self-care (01) | LOC: HO.MDS 10:03 | PROVIDERS: Visit Provider Internal Medicine | DX: M86.9 Osteomyelitis, unspecified (principal) | CPT/HCPCS: 96365; J1335 ==

== ENCOUNTER 2023-07-11 09:51 | Outpatient (REF) | payer MEDICARE, SELFPAY | END 2023-07-11 09:52 | disposition home or self-care (01) | LOC: HO.MDS 09:51 | PROVIDERS: PCP Internal Medicine Medical Oncology; Visit Provider Internal Medicine | DX: M86.9 Osteomyelitis, unspecified (principal) | CPT/HCPCS: 96365; J1335 ==

== ENCOUNTER 2023-07-12 09:08 | Outpatient (REF) | payer MEDICARE, SELFPAY | END 2023-07-12 09:09 | disposition home or self-care (01) | LOC: HO.MDS 09:08 | PROVIDERS: PCP Internal Medicine; Visit Provider Internal Medicine | DX: M86.9 Osteomyelitis, unspecified (principal) | CPT/HCPCS: 96365; J1335 ==

== ENCOUNTER 2023-07-13 10:19 | Outpatient (REF) | payer MEDICARE, SELFPAY | END 2023-07-13 10:20 | disposition home or self-care (01) | LOC: HO.MDS 10:19 | PROVIDERS: Visit Provider Internal Medicine | DX: M86.9 Osteomyelitis, unspecified (principal); I73.9 Peripheral vascular disease, unspecified | CPT/HCPCS: 96365; 99212; J1335 ==

== ENCOUNTER 2023-07-13 11:21 | Outpatient (AMB) | payer MEDICARE, SELFPAY ==
[2023-07-13 11:30] VITALS: BP 107/57; PULSE 57; O2SAT 98; BMI 26.0
--- NOTE | 2023-07-13 11:30 | A.OFFVIS_ITS ---
Intake Vital Signs 3 07/13/23 11:30 Height 5 ft 5 in Weight 156 lb BMI 26.0 BP 107/57 L Pulse 57 Pulse Source Pulse Oximeter Pulse Oximetry (%) 98 Intake Visit Reasons: abx started 06/02 osteo check end date Allergies No Known Allergies Allergy (Verified 07/13/23 11:31) HPI abx started 06/02 osteo check end date 2 HPI0 Details He has felt well and wound has healed. He has been discharged from Wound Clinic. He is now exactly week six of Ertapenem. He says he has no diarrhea or rash or other side effects. He is here with family today Left PICC line looks unremarkable. [facility] Medical History Peripheral vascular disease Surgical History Osteomyelitis Social History Advance Directives Date on File: 06/02/23 Review of Systems Const All systems reviewed & are unremarkable except as noted in HPI and below Physical Exam Vital Signs: Last Vital Signs Pulse 57 07/13/23 11:30 BP 107/57 L 07/13/23 11:30 Pulse Ox 98 07/13/23 11:30 BMI result Body Mass Index 26.0 Const Other: General: cooperative Orientation/consciousness: patient oriented x3 HEENT Head: Yes normal to inspection Mouth: Normal oral and palatal mucosa present Eyes General: appearance normal, both eyes and all related structures Pupils: Equal, round and reactive pupils present Resp Effort & Inspection: normal respiratory effort Cardio Rate: regular rate Rhythm: regular rhythm GI Palpation (GI): Soft to palpation and nontender General: Yes no CVA tenderness Back/Spine/Pelvis Back: no CVA tenderness Skin General skin exam: no rashes or lesions noted Neuro General: patient oriented x3 Cranial nerves: Yes CN's II-XII intact bilaterally and Yes Equal, round and reactive pupils present Extrem Other: completely healed over wound General: Yes normal to inspection Psych Appearance: grossly normal Assessment & Plan Assessment & Plan (1) Peripheral vascular disease: Comment: He has healed wound area. Code(s): I73.9 - Peripheral vascular disease, unspecified Plan: Stop IV antibiotics Po Doxycycline for a month. He realizes can recur. No further visits necessary at this time. (2) Osteomyelitis: Comment: He has OM and creatinine .7 so can take full dose antibiotics. He has no specific organism offered. Code(s): M86.9 - Osteomyelitis, unspecified Orders: Orders 2 IR cvc remove any age Today M86.9 - Osteomyelitis, unspecified Medications: New 2 doxycycline hyclate 100 mg PO BID 30 days 60 caps 0RF Coding Level of Care Code Est Pt Level 3 (35408) Diagnoses Peripheral vascular disease I73.9 Osteomyelitis M86.9
== END 2023-07-13 11:58 | disposition home or self-care (01) ==
PROVIDERS: PCP Internal Medicine; Visit Provider Internal Medicine
DX: I73.9 Peripheral vascular disease, unspecified (principal); M86.9 Osteomyelitis, unspecified
CPT/HCPCS: 99213

== ENCOUNTER 2023-07-14 11:27 | Outpatient (REF) | payer MEDICARE, SELFPAY | END 2023-07-14 11:28 | disposition home or self-care (01) | LOC: HO.RADIR 11:27 | PROVIDERS: Visit Provider Internal Medicine | DX: Z13.89 Encounter for screening for other disorder (principal) ==

== ENCOUNTER 2023-08-26 13:57 | Outpatient (AMB) | payer MEDICARE, SELFPAY ==
[2023-08-26 14:01] VITALS: BP 106/56; PULSE 77; TEMP 36.5; O2SAT 99
--- NOTE | 2023-08-26 14:01 | MHC.OFFVIS ---
Intake Vital Signs 08/26/23 14:01 BP 106/56 L Blood Pressure Location Rt brachial Position Sitting Pulse 77 Pulse Source Pulse Oximeter Temp 97.7 F Temp Source Oral Pulse Oximetry (%) 99 Intake Visit Reasons: ref.Garfield Dietz.foot wound of toe,cellulitis Allergies No Known Allergies Allergy (Verified 08/28/23 07:58) HPI ref.Kenny Dietzfoot wound of toe,cellulitis HPI Details Right great toe infection not responding to antibiotics Admission definitive surgical therapy PFSH Medical History Hypothyroidism BPH (benign prostatic hyperplasia) CAD (coronary artery disease) Gout HTN (hypertension) Peripheral vascular disease Surgical History S/P CABG (coronary artery bypass graft) Osteomyelitis Social History Household Members: Spouse Housing: House Do you presently have visiting nurse or other home services: No Patient Tobacco Use Status: Former Tobacco user Tobacco use type: Cigarette Advance Directives Date on File: 06/02/23 service: Yes Physical Exam Vital Signs: Last Vital Signs Temp 97.7 F 08/26/23 14:01 Pulse 77 08/26/23 14:01 BP 106/56 L 08/26/23 14:01 Pulse Ox 99 08/26/23 14:01 Assessment & Plan Assessment & Plan (1) Osteomyelitis: Comment: He has OM and creatinine .7 so can take full dose antibiotics. He has no specific organism offered. Code(s): M86.9 - Osteomyelitis, unspecified Plan: no further rx Plan no further rx Coding Level of Care Code Est Pt Level 3 (11263) Diagnoses Osteomyelitis M86.9
== END 2023-08-26 14:22 | disposition home or self-care (01) ==
PROVIDERS: PCP Internal Medicine; Visit Provider Internal Medicine
DX: M86.9 Osteomyelitis, unspecified (principal)
CPT/HCPCS: 99213

== ENCOUNTER 2023-08-26 14:25 | Inpatient (IN) | payer MEDICARE, SELFPAY ==
--- NOTE | ~2023-08-26 | XR_ITS ---
EXAMINATION: XR TOES, RIGHT CLINICAL INFORMATION: Osteomyelitis COMPARISON: Previous x-ray February 2023 TECHNIQUE: 3 views of the right toes were obtained. FINDINGS: There is increasing osteopenia, bone loss and destruction of the distal phalanx of the great toe suggestive of osteomyelitis. There is a new pathologic fracture of the distal tuft of the great toe. There is overlying soft tissue swelling. There is a small amount of air in the soft tissues. No soft tissue foreign body seen. XR/XR toe RT min 2V IMPRESSION: Worsening osteomyelitis of the distal phalanx of the great toe and new pathologic fracture.
[2023-08-26 15:26] VITALS: BP 145/65; PULSE 88; RESP 16; TEMP 36.1; O2SAT 98; BMI 21.5
--- NOTE | 2023-08-26 15:27 | ED_ITS ---
HPI - General Adult General Chief complaint: Extremity Injury, Lower Stated complaint: Infection on toe Time Seen by Provider: 08/26/23 20:07 Source: patient Mode of arrival: ambulatory Limitations: no limitations History of Present Illness HPI narrative: Patient comes to the emergency room accompanied by his daughters in family. Patient has recurrent redness and purulent discharge from his great toe on the right foot. About a month ago, patient completed a 40 day course of IV ertapenem, then recently completed an additional month of p.o. doxycycline. Today, patient went to see his infectious disease doctor, who noted that the toe seems to be getting more swollen and erythematous, patient was sent to emergency room for further evaluation and treatment and admission. Patient states that he has no significant sensation in his toe, has no pain. Patient denies fever chills. Related Data Home Medications Medication Instructions Recorded Confirmed allopurinol 300 mg tablet 300 mg PO DAILY 05/08/23 atorvastatin 40 mg tablet 40 mg PO DAILY 05/08/23 finasteride 5 mg tablet 5 mg PO DAILY 05/08/23 levothyroxine 75 mcg capsule 75 mcg PO DAILY 05/08/23 lisinopril 20 mg tablet 20 mg PO DAILY 05/08/23 metoprolol succinate 25 mg 25 mg PO DAILY 05/08/23 tablet,extended release 24 hr tamsulosin 0.4 mg capsule 0.4 mg PO DAILY 05/08/23 Previous Rx's Medication Instructions Recorded ertapenem 1 gram solution for 1 g IV Q24H 42 days #42 ea 05/08/23 injection doxycycline hyclate 100 mg capsule 100 mg PO BID 30 days #60 caps 07/13/23 Allergies Allergy/AdvReac Type Severity Reaction Status Date / Time No Known Allergies Allergy Verified 07/13/23 11:31 Review of Systems 2 Review of Systems: Constitutional : No Weight loss, No Fever, No Chills, No Night Sweats, No Fatigue, No Malaise ENT/Mouth : No Hearing loss, No Ear Pain, No Nasal Congestion, No Sinus Pain, No Hoarseness, No sore throat, No Rhinorrhea, No Swallowing Difficulty Eyes: No Eye Pain, No Swelling, No Redness, No Foreign Body, No Discharge, No Vision Changes Cardiovascular : No Chest Pain, No SOB, No Dyspnea on Exertion, No Orthopnea, No Edema, No Palpitations Respiratory : No Cough, No Sputum, No Wheezing, No Smoke Exposure, No Dyspnea Gastrointestinal : No Nausea, No Vomiting, No Diarrhea, No Constipation, No abdominal Pain, No Hematochezia, No Melena Genitourinary : no irregular bleeding, No Dysuria, No Urinary Frequency, No Hematuria, No Urinary Incontinence, No Urgency, No Flank Pain, No Urinary Flow Changes, No Hesitancy Musculoskeletal : No joint pain, No Myalgias, No Joint Swelling Skin : Worsening redness and swelling of the great toe on the right foot Neuro : No Weakness, No Numbness, No Paresthesias, No Loss of Consciousness, No Dizziness, No Headache Psych : No Anxiety/Panic, No Depression, No SI/HI/AH/VH, No Social Issues, Heme/Lymph: No Bruising, No Bleeding,No Lymphadenopathy Endocrine : No Polyuria, No Polydipsia, No Temperature Intolerance PMFSH Past Medical History Medical History Peripheral vascular disease Surgical History Osteomyelitis Social History Social History Advance Directives: Yes Advance Directives on File: Yes Advance Directives Date on File: 06/02/23 Physical Exam ED Vital Signs: Vital Signs - 24 hr 08/26/23 15:26 08/26/23 18:49 Temperature 97.0 F Pulse Rate 88 75 Respiratory Rate 16 16 Blood Pressure 145/65 H 124/63 Pulse Oximetry 98 96 Oxygen Delivery Method Room Air Room Air BMI result Body Mass Index 21.5 Const Other: Appearance: Alert. Oriented X3. No acute distress. Eyes: Pupils equal, round and reactive to light. ENT: Pharynx normal. Neck: Normal inspection. Neck supple. No lymph nodes noted. No crepitus CVS: Normal heart rate and rhythm. Pulses normal. Normal S1 and S2 Respiratory: No respiratory distress. Breath sounds normal. No Wheezing. No rales Abdomen: Soft and nontender. No rigidity. No distention. Skin: Skin warm and dry. See extremities below Extremities: No lower extremity edema. Greater toe on the right foot is swollen, erythematous, has purulent smelling discharge Neuro: Oriented X 3. No motor deficit. No sensory deficit. Moving all extremities. No slurred speech. CN 2 through 12 grossly intact Psych: calm, cooperative, normal affect Course Course Course Narrative: This is an RME: Additional HPI, ROS, PE not included below will be deferred to primary provider. This is a 69-whwx-tao-male, with a hx of osteomyelitis, presenting to the emergency department with complaints of right great toe infection. History of osteomyelitis Patient has been seen by infectious disease, was seen today and was told to immediately report to the emergency room due to the appearance of it. states that toe has looked like this for the last 2 weeks. Plan: Labs, lactic, blood cultures, x-ray further ER evaluation needed. Medical Decision Making Medical Decision Making [facility] Narrative: -my interpretation of labs, normal white blood cell count. Lactic acid within normal limits. Sepsis not suspected -my interpretation of x-ray of the foot: Osteomyelitis is like, patient does have a fracture in the distal phalanx -seems that patient did well with ertapenem. We will go ahead and restarted. ID consult pending in the morning Differential Diagnosis Differential Diagnoses: The differential diagnosis associated with the presentation includes (Cellulitis, osteomyelitis, abscess) Admission/Observation Consideration of admission/observation: Escalation of care including admission/observation considered Consult Healthcare Provider Management of the patient was discussed with: Hospitalist Lab Data [facility] Lab Attestation statement: I reviewed the patient's lab results. 08/26/23 16:54 08/26/23 16:54 Labs: Lab Results 08/26/23 Range/Units 16:54 WBC 9.7 (4.8-10.8) X10*3/uL RBC 3.99 L (4.60-5.80) X10*6/uL Hgb 11.7 L (14.0-18.0) g/dl Hct 35.8 L (42.0-52.0) % MCV 89.7 (80.0-98.0) fL MCH 29.3 (27.0-33.0) pg MCHC 32.7 (31.0-36.0) g/dl RDW 12.9 (11.0-16.0) % Plt Count 338 D (160-400) X10*3/uL MPV 9.0 L (9.4-12.4) fL Immature Gran % (Auto) 0.7 H (0.0-0.4) % Neut % (Auto) 78.5 H (45-73) % Lymph % (Auto) 10.6 L (20-40) % [place] % (Auto) 9.2 (2-11) % Eos % (Auto) 0.8 (0-4) % Baso % (Auto) 0.2 (0-2) % Lymph # (Auto) 1.0 L (1.2-4.9) X10*3/uL [place] # (Auto) 0.9 (0.1-1.2) X10*3/uL Eos # (Auto) 0.1 (0.0-0.4) X10*3/uL Baso # (Auto) 0.0 (0.0-0.2) X10*3/uL Abs Immat Gran (auto) 0.07 H (0.00-0.03) X10*3/uL Absolute Neuts (auto) 7.6 (2.0-8.3) x10*3/uL Absolute Nucleated RBC 0.000 (0.0-0.012) X10*3/uL Nucleated RBC % (auto) 0.0 (0.0-0.2) /100WBC Sodium 140 (135-145) mmol/L Potassium 4.0 (3.3-5.1) mmol/L Chloride 105 (96-108) mmol/L Carbon Dioxide 28 (22-29) mmol/L Anion Gap 11 L (12-20) BUN 22 H (9-16) mg/dL Creatinine 1.06 (0.5-1.4) mg/dL Estim Creat Clear Calc 47.1 Estimated GFR > 60 Random Glucose 155 H (60-115) mg/dL Lactic Acid 1.2 (0.5-2.0) mmol/L Calcium 9.6 (8.4-10.2) mg/dL Total Bilirubin 0.4 (0.0-1.0) mg/dL Direct Bilirubin 0.2 (0.0-0.5) mg/dL AST 30 (5-37) U/L ALT 38 (0-40) U/L Alkaline Phosphatase 79 (39-117) U/L Total Protein 7.5 (6.5-8.0) g/dL Albumin 3.6 (3.5-5.0) g/dL Independent Interpretation I performed an independent interpretation of an: Plain X-Ray Radiology Impression Discussion of test interpretation with radiology: I have reviewed the radiologist's reading. Radiologist Impression: There is increasing osteopenia, bone loss and destruction of the distal phalanx of the great toe suggestive of osteomyelitis. There is a new pathologic fracture of the distal tuft of the great toe. There is overlying soft tissue swelling. There is a small amount of air in the soft tissues. No soft tissue foreign body seen. XR/XR toe RT min 2V IMPRESSION: Worsening osteomyelitis of the distal phalanx of the great toe and new pathologic fracture. Critical Care Time Critical Care Time Critical Care Time: Yes Total Critical Care Time: 60 Attestation: I have personally provided critical care time. Time includes review of lab data, radiology results, discussion with consultants, and monitoring for potential decompensation. Intervention performed as documented. Discharge Plan Discharge Clinical Impression: Osteomyelitis Patient Disposition: Admitted As Inpatient Prescriptions: No Action doxycycline hyclate 100 mg capsule 100 mg PO BID 30 Days Qty: 60 0RF levothyroxine 75 mcg capsule 75 mcg PO DAILY finasteride 5 mg tablet 5 mg PO DAILY allopurinol 300 mg tablet 300 mg PO DAILY lisinopril 20 mg tablet 20 mg PO DAILY metoprolol succinate 25 mg tablet extended release 24 hr 25 mg PO DAILY tamsulosin 0.4 mg capsule 0.4 mg PO DAILY atorvastatin 40 mg tablet 40 mg PO DAILY ertapenem 1 gram recon soln 1 g IV Q24H 42 Days Qty: 42 0RF
[2023-08-26 17:04] LABS: MANUAL DIFF FLAG NO
[2023-08-26 17:05] LABS: Basophils Percent Auto 0.2 % (0-2); Eosinophils Absolute Auto 0.1 X10*3/uL (0.0-0.4); Eosinophils Percent Auto 0.8 % (0-4); Hematocrit 35.8 % (42.0-52.0); Hemoglobin 11.7 g/dl (14.0-18.0); Imm Gran Abs Auto 0.07 X10*3/uL (0.00-0.03); Imm Gran Pct Auto 0.7 % (0.0-0.4); Lymphocytes Percent Auto 10.6 % (20-40); Mean Corpuscular HGB Conc 32.7 g/dl (31.0-36.0); Mean Corpuscular Hemoglobin 29.3 pg (27.0-33.0); Mean Corpuscular Volume 89.7 fL (80.0-98.0); Monocytes Absolute Auto 0.9 X10*3/uL (0.1-1.2); Monocytes Percent Auto 9.2 % (2-11); Neutrophils Absolute Auto 7.6 x10*3/uL (2.0-8.3); Neutrophils Percent Auto 78.5 % (45-73); Platelet Count 338 X10*3/uL (160-400); Red Blood Count 3.99 X10*6/uL (4.60-5.80); Red Cell Distribution Width 12.9 % (11.0-16.0); White Blood Count 9.7 X10*3/uL (4.8-10.8)
[2023-08-26 17:18] LABS: Lactic Acid 1.2 mmol/L (0.5-2.0)
[2023-08-26 17:23] LABS: Alanine Aminotransferase 38 U/L (0-40); Albumin Level 3.6 g/dL (3.5-5.0); Alkaline Phosphatase 79 U/L (39-117); Anion Gap 11 (12-20); Aspartate Amino Transferase 30 U/L (5-37); Bilirubin Direct 0.2 mg/dL (0.0-0.5); Bilirubin Total 0.4 mg/dL (0.0-1.0); Blood Urea Nitrogen 22 mg/dL (9-16); Calcium 9.6 mg/dL (8.4-10.2); Carbon Dioxide 28 mmol/L (22-29); Chloride 105 mmol/L (96-108); Creatinine Clr Calc Pharmacy 47.1; Estimated Glomerular Filt Rate > 60; Glucose Random 155 mg/dL (60-115); Sodium 140 mmol/L (135-145); Total Protein 7.5 g/dL (6.5-8.0)
[2023-08-26 18:49] VITALS: BP 124/63; PULSE 75; RESP 16; O2SAT 96
[2023-08-26 21:12] LABS: C Reactive Protein 5.13 mg/dL (< or = 0.50)
--- NOTE | 2023-08-26 21:19 | P.HPHOSP_ITS ---
History of Present Illness Date of Service: 08/26/23 Attending physician on admission: Bruce Martin Chief Complaint: Worsening right toe infection Pt is a 87-year-old male with a PMH significant for?CAD s/p triple bypass, HTN, HLD, BPH, hypothyroidism, gout, and hx of osteomyelitis of 1st digit on right foot who presents to the ED with?recurrent erythema and purulent discharge from 1st digit of right foot. Patient recently completed a 40-day course of IV ertapenem, and then an additional month of doxycycline p.o. for osteomyelitis. Patient is followed by Dr. Leblanc in infectious disease. He had a follow-up appointment at her office earlier this afternoon and was immediately sent to the ED for further evaluation after she examined him and found his toe to have significantly deteriorated since prior visit. Pt himself does not seem particularly concerned about his toe, stating it neither hurts or bothers him at all. Pt is a rather poor historian and unable to offer much in the way of details to clarify HPI. However, family at beside note the toe looked much worse during Thanksgiving and was draining a purulent serous sanguinous fluid. Pt denies systemic symptoms: no fever, chills, N/V. Denies chest pain/pressure, palpitations. No shortness of breath. In the ED pt was afebrile and with pulse and respiratory rate WNL. Labs were significant for stable chronic anemia of 11.7/35.8, C reactive protein 5.13, ESR 87, otherwise grossly unremarkable. Electrolytes WNL. Renal function baseline. Hepatic function WNL. X-ray of right toe showed worsening osteomyelitis of the distal phalanx and new pathological fracture. Pt was treated with ertapenem and IVF. Pt will be admitted to the hospital treatment further evaluation of worsening osteomyelitis of 1st digit of right foot that has failed outpatient therapy. Review of Systems 2 Review of Systems: Worsening redness and drainage of 1st digit of right foot Redness and swelling of right leg and foot Denies any right foot or toe pain No fever, chills, nausea, vomiting Denies chest pain/pressure, palpitations No shortness of breath Denies abdominal pain [facility] Medical History (Updated 08/26/23 @ 22:04 by LARRY Philippe) Hypothyroidism BPH (benign prostatic hyperplasia) CAD (coronary artery disease) Gout HTN (hypertension) Peripheral vascular disease Surgical History (Updated 08/26/23 @ 22:04 by LARRY Philippe) S/P CABG (coronary artery bypass graft) Osteomyelitis Social History Smoked in Last 30 Days: No Use of substances other than those prescribed or required for medical reasons: No Advance Directives: Yes Advance Directives on File: Yes Advance Directives Date on File: 06/02/23 Meds Allergies Allergy/AdvReac Type Severity Reaction Status Date / Time No Known Allergies Allergy Verified 07/13/23 11:31 Active Medications: Current Medications Ertapenem 1 gm/ Sodium (Chloride) 50 mls @ 100 mls/hr IV ONCE ONE Stop: 08/26/23 21:30 Sodium Chloride (Ns) 1,000 mls @ 999 mls/hr IVCONT .Q1H1M ONE Stop: 08/26/23 22:01 Home Medications Medication Instructions Recorded Confirmed Last Taken Type allopurinol 300 mg tablet 300 mg PO DAILY 05/08/23 Unknown History atorvastatin 40 mg tablet 40 mg PO DAILY 05/08/23 Unknown History finasteride 5 mg tablet 5 mg PO DAILY 05/08/23 Unknown History levothyroxine 75 mcg capsule 75 mcg PO DAILY 05/08/23 Unknown History lisinopril 20 mg tablet 20 mg PO DAILY 05/08/23 Unknown History tamsulosin 0.4 mg capsule 0.4 mg PO DAILY 05/08/23 Unknown History metoprolol tartrate 25 mg tablet 25 mg PO BID 08/26/23 Unknown History Physical Exam 2 Vital Signs and Narrative: Vital Signs: Last Vital Signs Temp 97.0 F 08/26/23 15:26 Pulse 75 08/26/23 18:49 Resp 16 08/26/23 18:49 BP 124/63 08/26/23 18:49 Pulse Ox 96 08/26/23 18:49 O2 Del Method Room Air 08/26/23 18:49 BMI result Body Mass Index 21.5 General: AOx3, no acute distress Resp: CTA bilaterally CVS: S1, S2, RRR GI: +BS, NT, no distention Skin: Warm, dry Neuro: Cranial nerves II-XII grossly intact bilaterally. Motor grossly intact bilaterally Extremities: Right lower leg and foot with mild swelling and erythema. First digit of right foot with erythema, swelling, and scant amount of discharge. As picture below. Psych: Appropriate affect Results Labs 08/26/23 16:54 08/26/23 16:54 Labs: Laboratory Results - last 24 hr 08/26/23 16:54 MCV 89.7 MCH 29.3 MCHC 32.7 RDW 12.9 Plt Count 338 D MPV 9.0 L Immature Gran % (Auto) 0.7 H Neut % (Auto) 78.5 H Lymph % (Auto) 10.6 L [place] % (Auto) 9.2 Eos % (Auto) 0.8 Baso % (Auto) 0.2 Lymph # (Auto) 1.0 L [place] # (Auto) 0.9 Eos # (Auto) 0.1 Baso # (Auto) 0.0 Abs Immat Gran (auto) 0.07 H Absolute Neuts (auto) 7.6 Absolute Nucleated RBC 0.000 Nucleated RBC % (auto) 0.0 Anion Gap 11 L Estim Creat Clear Calc 47.1 Estimated GFR > 60 Random Glucose 155 H Lactic Acid 1.2 Calcium 9.6 Total Bilirubin 0.4 Direct Bilirubin 0.2 AST 30 ALT 38 Alkaline Phosphatase 79 C-Reactive Protein 5.13 H Total Protein 7.5 Albumin 3.6 Imaging Radiologist's Impressions: Impressions Toe X-Ray 08/26/23 16:02 IMPRESSION: Worsening osteomyelitis of the distal phalanx of the great toe and new pathologic fracture. Assessment and Plan (1) Osteomyelitis: Status: Acute Plan Pt is a 87-year-old male with a PMH significant for?CAD s/p triple bypass, HTN, HLD, BPH, hypothyroidism, gout, and hx of osteomyelitis of 1st digit on right foot who presents to the ED with?recurrent erythema and purulent discharge from 1st digit of right foot. Patient recently completed a 40-day course of IV ertapenem, and then an additional month of doxycycline p.o. for osteomyelitis. Pt will be admitted to the hospital treatment further evaluation of worsening osteomyelitis of 1st digit of right foot that has failed outpatient therapy. Osteomyelitis of 1st digit of right foot Patient previously completed 40-day course of IV ertapenem, additional 30-day course of doxy, finished one week ago Xray today shows worseing osteomyelitis with new pathologic fracture, elevated ESR and CRP Will treat with meropenem, started 08/26/2023 ID consult General surgery consult Will get EKG for baseline for likely surgery Follow cultures CAD/HLD Continue statin HTN Continue home antihypertensives Hypothyroidism Continue levothyroxine BPH Continue tamsulosin Hx of gout Continue allopurinol Full Code Attending:?Dr. Martin DVT Prophylaxis: Lovenox Pt will require a hospitalization of at least two nights for treatment of?recurrent osteomyelitis of 1st digit of right toe that has failed outpatient therapy. He will be treated with IV antibiotics, specialist consultation, and likely surgical procedure. Quality Stroke Does the patient have a stroke diagnosis?: No VTE Prior VTE?: No VTE Risk Level:: Medical - moderate - high VTE Device Contraindication: Treatment Not Indicated VTE Drug Contraindication: N/A - Med Ordered
[2023-08-26 21:23] VITALS: BP 136/65; PULSE 76; RESP 20; O2SAT 99
--- NOTE | 2023-08-26 21:40 | PC.NURSE ---
pharmacy at bedside, attempted to do med rec but pt does not know what he takes. at home manages medication. pharmacist said she will have them speak to her in the morning
[2023-08-26] MEDS: Ertapenem Sodium 1 GM in 0.9 % Sodium Chloride 50 ML IV (21:54)
[2023-08-26] MEDS: 0.9 % Sodium Chloride 1,000 ML 999 ML IVCONT (21:54)
[2023-08-26 22:01] LABS: Erythrocyte Sedimentation Rate 87 MM/HR (0-15)
--- NOTE | 2023-08-26 23:07 | PC.NURSE ---
lactic and second full set of blood cultures not needed, spoke with MD Nelson and Pharmacy.
[2023-08-26] MEDS: Enoxaparin Sodium 40 MG/0.4 ML SYRINGE SUBCUT (23:30)
[2023-08-26] MEDS: 0.9 % Sodium Chloride Flush 3 ML SYRINGE IVFLUSH (23:32)
[2023-08-27 00:08] VITALS: BP 125/54; PULSE 69; RESP 14; O2SAT 98
--- NOTE | 2023-08-27 00:16 | PC.NURSE ---
pt resting comfortably in bed, light off, no needs at this time.
[2023-08-27 01:29] VITALS: BP 141/59; PULSE 65; RESP 16; TEMP 36.9; O2SAT 96
--- NOTE | 2023-08-27 04:52 | MHC.EDTECH ---
EKG tigertext to provider LARRY Philippe Hospitalist
--- NOTE | 2023-08-27 05:00 | ECG_ITS ---
Test Reason : Routine, pt with hx of CAD, likely surgery soon Blood Pressure : / mmHG Vent. Rate : 055 BPM Atrial Rate : 055 BPM P-R Int : 208 ms QRS Dur : 128 ms QT Int : 442 ms P-R-T Axes : 084 -29 049 degrees QTc Int : 422 ms Sinus bradycardia Left axis deviation Non-specific intra-ventricular conduction block Minimal voltage criteria for LVH, may be normal variant ( Kerby product ) Abnormal ECG No previous ECGs available Referred By: Rocky Cartwright Electronically Signed By:GURVINDER HALL MD
[2023-08-27 05:44] VITALS: BP 135/63; PULSE 55; RESP 18; TEMP 36.2; O2SAT 97
[2023-08-27 07:15] VITALS: BP 138/63; PULSE 55; RESP 16; TEMP 36.1; O2SAT 99
[2023-08-27] MEDS: 0.9 % Sodium Chloride Flush 3 ML SYRINGE IVFLUSH ×3 (08:44→21:23)
--- NOTE | 2023-08-27 08:48 | P.CONGS_ITS ---
History of Present Illness Consult details Consult date: 08/27/23 Narrative: 87-year-old male with multiple medical problems including peripheral vascular disease, coronary disease, thyroid disease, hypertension, admitted because of worsening redness and drainage from the right big toe. He had been treated for osteomyelitis of the right big toe and had completed a course of ertapenem. She is being followed by Dr. Leblanc. However, according to the family, there had been some worsening of the redness and discharge for the past week. He was sent to the ER yesterday because of this. He otherwise denies significant pain on the big toe. Denies any fever or chills. Review of Systems 2 Constitutional: Constitutional: Denies chills and Denies fever(s) Cardiovascular: Cardiovascular: Denies chest pain, Denies dyspnea and Reports dyspnea on exertion Respiratory: Respiratory: Denies cough, Denies dyspnea and Reports dyspnea on exertion Gastrointestinal: Gastrointestinal: Denies hematochezia and Denies change in bowel habits Genitourinary: Genitourinary: Denies hematuria and Denies difficulty urinating Musculoskeletal: Musculoskeletal: Reports back pain, Reports arthralgias and Reports limited range of motion Neurologic: Denies focal weakness and Denies convulsions Psychiatric: Psychiatric: Denies depression and Denies mood swings PMFSH Past Medical History Medical History Hypothyroidism BPH (benign prostatic hyperplasia) CAD (coronary artery disease) Gout HTN (hypertension) Peripheral vascular disease Surgical History Surgical History S/P CABG (coronary artery bypass graft) Osteomyelitis Social History Social History Household Members: Spouse Housing: House Do you presently have visiting nurse or other home services: No Patient Tobacco Use Status: Former Tobacco user Tobacco use type: Cigarette Advance Directives Date on File: 06/02/23 service: Yes Meds Allergies Allergy/AdvReac Type Severity Reaction Status Date / Time No Known Allergies Allergy Verified 08/28/23 07:58 Active Medications: Current Medications Acetaminophen (Acetaminophen 325 Mg Tablet) 650 mg PO Q6H PRN PRN Reason: Pain, Mild (Pain Scale 1-3) Benzonatate (Benzonatate 100 Mg Capsule) 100 mg PO TID PRN PRN Reason: Cough Docusate Sodium (Docusate Sodium 100 Mg Capsule) 100 mg PO DAILY PRN PRN Reason: Constipation Enoxaparin Sodium (Enoxaparin Sodium 40 Mg/0.4 Ml Syringe) 40 mg SUBCUT Q24H [facility] Last Admin: 08/26/23 23:30 Dose: 40 mg Meropenem 1 gm/ Sodium (Chloride) 100 mls @ 200 mls/hr IV Q12H [facility] Last Infusion: 08/27/23 00:09 Dose: Infused Melatonin (Melatonin 3 Mg Tablet) 6 mg PO BEDTIME PRN PRN Reason: Insomnia Ondansetron HCl (Ondansetron Hcl 4 Mg/2 Ml Vial) 4 mg IVPUSH Q8H PRN PRN Reason: Nausea and Vomiting Sodium Chloride (0.9 % Sodium Chloride Flush 3 Ml Syringe) 3 ml IVFLUSH QSHIFT [facility] Last Admin: 08/27/23 08:44 Dose: 3 ml Home Medications Medication Instructions Recorded Confirmed Last Taken Type allopurinol 300 mg tablet 300 mg PO DAILY 05/08/23 08/27/23 Unknown History atorvastatin 40 mg tablet 40 mg PO DAILY 05/08/23 08/27/23 Unknown History finasteride 5 mg tablet 5 mg PO DAILY 05/08/23 08/27/23 Unknown History levothyroxine 75 mcg capsule 75 mcg PO DAILY 05/08/23 08/27/23 Unknown History lisinopril 20 mg tablet 20 mg PO DAILY 05/08/23 08/27/23 Unknown History tamsulosin 0.4 mg capsule 0.4 mg PO DAILY 05/08/23 08/27/23 Unknown History metoprolol tartrate 25 mg tablet 25 mg PO BID 08/26/23 08/27/23 Unknown History Physical Exam 2 Vital Signs: Vital Signs: Last Vital Signs Temp 97.0 F 08/27/23 07:15 Pulse 55 08/27/23 07:15 Resp 16 08/27/23 07:15 BP 138/63 08/27/23 07:15 Pulse Ox 99 08/27/23 07:15 O2 Del Method Room Air 08/27/23 07:15 BMI result Body Mass Index 21.5 Const: Other: Sitting on recliner, appears well General: comfortable and no acute distress Orientation/consciousness: p atient oriented x3 Neck: Neck: Yes no lymphadenopathy Resp: Auscultation: clear to auscultation bilaterally Cardio: Rhythm: regular rhythm GI: Palpation (GI): Soft to palpation, nontender and no guarding Neuro: General: patient oriented x3 Extrem: Other: right big toe with note of diffuse swelling of entire big toe, redness at the tip, drainage with small open wound at the tip Results Labs 08/26/23 16:54 08/26/23 16:54 Labs: Abnormal lab results 08/26/23 Range/Units 16:54 RBC 3.99 L (4.60-5.80) X10*6/uL Hgb 11.7 L (14.0-18.0) g/dl Hct 35.8 L (42.0-52.0) % MPV 9.0 L (9.4-12.4) fL Immature Gran % (Auto) 0.7 H (0.0-0.4) % Neut % (Auto) 78.5 H (45-73) % Lymph % (Auto) 10.6 L (20-40) % Lymph # (Auto) 1.0 L (1.2-4.9) X10*3/uL Abs Immat Gran (auto) 0.07 H (0.00-0.03) X10*3/uL ESR 87 H (0-15) MM/HR Anion Gap 11 L (12-20) BUN 22 H (9-16) mg/dL Random Glucose 155 H (60-115) mg/dL C-Reactive Protein 5.13 H (< or = 0.50) mg/dL Short CBC 08/26/23 Range/Units 16:54 WBC 9.7 (4.8-10.8) X10*3/uL Hgb 11.7 L (14.0-18.0) g/dl Hct 35.8 L (42.0-52.0) % Plt Count 338 D (160-400) X10*3/uL BMP 08/26/23 16:54 Sodium 140 Potassium 4.0 Chloride 105 Carbon Dioxide 28 BUN 22 H Creatinine 1.06 Calcium 9.6 Liver Function 08/26/23 Range/Units 16:54 Total Bilirubin 0.4 (0.0-1.0) mg/dL Direct Bilirubin 0.2 (0.0-0.5) mg/dL AST 30 (5-37) U/L ALT 38 (0-40) U/L Alkaline Phosphatase 79 (39-117) U/L Albumin 3.6 (3.5-5.0) g/dL All other labs normal. Laboratory Results WBC 9.7 X10*3/uL (4.8-10.8) 08/26/23 16:54 RBC 3.99 X10*6/uL (4.60-5.80) L 08/26/23 16:54 Hgb 11.7 g/dl (14.0-18.0) L 08/26/23 16:54 Hct 35.8 % (42.0-52.0) L 08/26/23 16:54 MCV 89.7 fL (80.0-98.0) 08/26/23 16:54 MCH 29.3 pg (27.0-33.0) 08/26/23 16:54 MCHC 32.7 g/dl (31.0-36.0) 08/26/23 16:54 RDW 12.9 % (11.0-16.0) 08/26/23 16:54 Plt Count 338 X10*3/uL (160-400) D 08/26/23 16:54 MPV 9.0 fL (9.4-12.4) L 08/26/23 16:54 Immature Gran % (Auto) 0.7 % (0.0-0.4) H 08/26/23 16:54 Neut % (Auto) 78.5 % (45-73) H 08/26/23 16:54 Lymph % (Auto) 10.6 % (20-40) L 08/26/23 16:54 [place] % (Auto) 9.2 % (2-11) 08/26/23 16:54 Eos % (Auto) 0.8 % (0-4) 08/26/23 16:54 Baso % (Auto) 0.2 % (0-2) 08/26/23 16:54 Lymph # (Auto) 1.0 X10*3/uL (1.2-4.9) L 08/26/23 16:54 [place] # (Auto) 0.9 X10*3/uL (0.1-1.2) 08/26/23 16:54 Eos # (Auto) 0.1 X10*3/uL (0.0-0.4) 08/26/23 16:54 Baso # (Auto) 0.0 X10*3/uL (0.0-0.2) 08/26/23 16:54 Abs Immat Gran (auto) 0.07 X10*3/uL (0.00-0.03) H 08/26/23 16:54 Absolute Neuts (auto) 7.6 x10*3/uL (2.0-8.3) 08/26/23 16:54 Absolute Nucleated RBC 0.000 X10*3/uL (0.0-0.012) 08/26/23 16:54 Nucleated RBC % (auto) 0.0 /100WBC (0.0-0.2) 08/26/23 16:54 ESR 87 MM/HR (0-15) H 08/26/23 16:54 Sodium 140 mmol/L (135-145) 08/26/23 16:54 Potassium 4.0 mmol/L (3.3-5.1) 08/26/23 16:54 Chloride 105 mmol/L (96-108) 08/26/23 16:54 Carbon Dioxide 28 mmol/L (22-29) 08/26/23 16:54 Anion Gap 11 (12-20) L 08/26/23 16:54 BUN 22 mg/dL (9-16) H 08/26/23 16:54 Creatinine 1.06 mg/dL (0.5-1.4) 08/26/23 16:54 Estim Creat Clear Calc 47.1 08/26/23 16:54 Estimated GFR > 60 08/26/23 16:54 Random Glucose 155 mg/dL (60-115) H 08/26/23 16:54 Lactic Acid 1.2 mmol/L (0.5-2.0) 08/26/23 16:54 Calcium 9.6 mg/dL (8.4-10.2) 08/26/23 16:54 Total Bilirubin 0.4 mg/dL (0.0-1.0) 08/26/23 16:54 Direct Bilirubin 0.2 mg/dL (0.0-0.5) 08/26/23 16:54 AST 30 U/L (5-37) 08/26/23 16:54 ALT 38 U/L (0-40) 08/26/23 16:54 Alkaline Phosphatase 79 U/L (39-117) 08/26/23 16:54 C-Reactive Protein 5.13 mg/dL (< or = 0.50) H 08/26/23 16:54 Total Protein 7.5 g/dL (6.5-8.0) 08/26/23 16:54 Albumin 3.6 g/dL (3.5-5.0) 08/26/23 16:54 Impressions Toe X-Ray 08/26/23 16:02 IMPRESSION: Worsening osteomyelitis of the distal phalanx of the great toe and new pathologic fracture. Assessment and Plan (1) Osteomyelitis: Status: Acute Plan He had completed treatment with IV antibiotics for his osteomyelitis but he seems to have had worsening. He now as more drainage as well as swelling and redness. According to the family, this big toe looks worse the past week He is imaging study shows worsening osteomyelitis as well with a pathologic fracture It appears that he has failed IV antibiotic treatment. I have offered him the option of proceeding with toe amputation. I explained the technique of aphasia in the big toe. I discussed the risks including but not limited to bleeding, infections, poor healing, postop pain, as well as the benefits and alternatives. He wants me to talk to his family before proceeding. Procedures Date of Service Date of Service: 08/28/23
--- NOTE | 2023-08-27 09:29 | MHC.CM.PN ---
IMM 08/27/23 Male 87 lives with his . He states that he is independent with all functional mobility. He declined the offer to document a HCP. The patient is scheduled for O.R. tomorrow r/t recurrent Osteomyelitis. A Visiting nurse may be needed for possible wound care needs. Patient preferences obtained. A referral was sent to [facility]. DP Home with or without VNA. Patients dtr will provide transport home.
--- NOTE | 2023-08-27 14:22 | PM.EVENT ---
Event Note Date of Service: 08/28/23 Event Note: I had an extensive meeting with him and his family at bedside. I discussed his options including amputation versus repeating a course of antibiotics The family feels that he has enough antibiotics and they would like him to proceed with toe amputation I discussed the technique of amputation of the great toe I reviewed the risks including but not limited to bleeding, infections, poor healing, postop pain, as well as the benefits and alternatives. I explained to them what to expect postoperatively He has given consent He will be put on the schedule for tomorrow for amputation of the big toe on the right Time Spent With Patient Time: Total time managing care of this patient today ____ minutes.
[2023-08-27 15:56] VITALS: BP 148/69; PULSE 65; RESP 18; TEMP 36.1; O2SAT 98
--- NOTE | 2023-08-27 18:04 | HO.PM.IMPN ---
Subjective Subjective Date of Service: 08/27/23 Interval History: seen and examined this morning follow up for right great toe osteomyelitis pt denies fever or chills Review of Systems Review of Systems: Yes all other systems are reviewed and are negative Constitutional Constitutional: Denies chills and Denies fever(s) Cardiovascular Cardiovascular: Denies chest pain, Denies palpitations and Denies dyspnea Respiratory Respiratory: Denies cough and Denies dyspnea Endocrine Endocrine: Denies palpitations Physical Exam Vital Signs: Vital Signs: Last Vital Signs Temp 96.9 F 08/27/23 15:56 Pulse 65 08/27/23 15:56 Resp 18 08/27/23 15:56 BP 148/69 H 08/27/23 15:56 Pulse Ox 98 08/27/23 15:56 O2 Del Method Room Air 08/27/23 15:56 BMI result Body Mass Index 21.5 Const: General: cooperative, comfortable, no acute distress, alert and awake Nutritional Appearance: average body habitus Orientation/consciousness: patient oriented x3 Resp: Effort & Inspection: normal respiratory effort, able to speak in complete sentences, no respiratory distress and no use of accessory muscles Cardio: Rate: regular rate GI: Palpation (GI): Soft to palpation Skin: Other: right fight right foot Neuro: General: patient oriented x3 Objective Data Active Medications Acetaminophen (Acetaminophen 325 Mg Tablet) 650 mg PO Q6H PRN PRN Reason: Pain, Mild (Pain Scale 1-3) Benzonatate (Benzonatate 100 Mg Capsule) 100 mg PO TID PRN PRN Reason: Cough Docusate Sodium (Docusate Sodium 100 Mg Capsule) 100 mg PO DAILY PRN PRN Reason: Constipation Enoxaparin Sodium (Enoxaparin Sodium 40 Mg/0.4 Ml Syringe) 40 mg SUBCUT Q24H [facility] Last Admin: 08/26/23 23:30 Dose: 40 mg Documented By: SERGIO Meropenem 1 gm/ Sodium (Chloride) 100 mls @ 200 mls/hr IV Q12H [facility] Last Infusion: 08/27/23 11:41 Dose: Infused Documented By: JESUS Melatonin (Melatonin 3 Mg Tablet) 6 mg PO BEDTIME PRN PRN Reason: Insomnia Ondansetron HCl (Ondansetron Hcl 4 Mg/2 Ml Vial) 4 mg IVPUSH Q8H PRN PRN Reason: Nausea and Vomiting Sodium Chloride (0.9 % Sodium Chloride Flush 3 Ml Syringe) 3 ml IVFLUSH QSHIFT [facility] Last Admin: 08/27/23 15:01 Dose: 3 ml Documented By: WANG Labs 08/26/23 16:54 08/26/23 16:54 Labs: Laboratory Results - last 24 hr 08/26/23 16:54 ESR 87 H C-Reactive Protein 5.13 H Microbiology Microbiology Results: Microbiology 08/26/23 22:53 Blood Culture - Final Blood - Venous 08/26/23 22:53 Blood Culture - Final Blood - Venous Assessment and Plan (1) Osteomyelitis: Status: Acute Plan Pt is a 87-year-old male with a PMH significant for?CAD s/p triple bypass, HTN, HLD, BPH, hypothyroidism, gout, and hx of osteomyelitis of 1st digit on right foot who presents to the ED with?recurrent erythema and purulent discharge from 1st digit of right foot. Patient recently completed a 40-day course of IV ertapenem, and then an additional month of doxycycline p.o. for osteomyelitis. Pt will be admitted to the hospital treatment further evaluation of worsening osteomyelitis of 1st digit of right foot that has failed outpatient therapy. Osteomyelitis of 1st digit of right foot Patient previously completed 40-day course of IV ertapenem, additional 30-day course of doxy, finished one week ago Xray today shows worseing osteomyelitis with new pathologic fracture, elevated ESR and CRP Will treat with meropenem, started 08/26/2023 seen by general surgery - plan for amputation in am, npo at midnight ID consult pending blood cultures pending CAD/HLD Continue statin HTN Continue home antihypertensives, lisinopril and metoprolol Hypothyroidism Continue levothyroxine BPH Continue tamsulosin Hx of gout Continue allopurinol Full Code Attending:?Dr. James DVT Prophylaxis: Lovenox Requires ongoing hospitalization for?recurrent osteomyelitis of 1st digit of right toe that has failed outpatient therapy. He will be treated with IV antibiotics, specialist consultation, and likely surgical procedure. Quality Stroke Does the patient have a stroke diagnosis?: No VTE Prior VTE?: No VTE Risk Level:: Medical - moderate - high VTE Device Contraindication: Treatment Not Indicated VTE Drug Contraindication: N/A - Med Ordered
[2023-08-27 19:35] VITALS: BP 160/56; PULSE 72; RESP 18; TEMP 36.3; O2SAT 97
[2023-08-27] MEDS: Melatonin 3 MG TABLET 6 MG PO (21:22)
[2023-08-27] MEDS: Metoprolol Tartrate 25 MG TABLET PO (21:22)
[2023-08-27] MEDS: Enoxaparin Sodium 40 MG/0.4 ML SYRINGE SUBCUT (21:22)
[2023-08-28] VITALS (11 sets, daily range): BP systolic 107–150; BP diastolic 58–68; PULSE 58–75; RESP 15–18; TEMP 36.1–36.7; O2SAT 93–100
--- NOTE | 2023-08-28 08:31 | HO.ANESPROP2 ---
[facility] Active Problems Active Problems: All Active Problems (Updated 08/26/23 @ 22:04 by LARRY Philippe) Peripheral vascular disease (Acute) Osteomyelitis (Acute) Past Medical History Medical History Hypothyroidism BPH (benign prostatic hyperplasia) CAD (coronary artery disease) Gout HTN (hypertension) Peripheral vascular disease Surgical History Surgical History S/P CABG (coronary artery bypass graft) Osteomyelitis History of Problems with Anesthesia: No Social History Social History Household Members: Spouse Housing: House Do you presently have visiting nurse or other home services: No Patient Tobacco Use Status: Former Tobacco user Tobacco use type: Cigarette Advance Directives Date on File: 06/02/23 service: Yes Meds Allergies Allergy/AdvReac Type Severity Reaction Status Date / Time No Known Allergies Allergy Verified 08/28/23 07:58 Active Medications: Current Medications Acetaminophen (Acetaminophen 325 Mg Tablet) 650 mg PO Q6H PRN PRN Reason: Pain, Mild (Pain Scale 1-3) Allopurinol (Allopurinol 300 Mg Tablet) 300 mg PO DAILY DEZ Atorvastatin Calcium (Atorvastatin Calcium 40 Mg Tablet) 40 mg PO DAILY DE[facility] Benzonatate (Benzonatate 100 Mg Capsule) 100 mg PO TID PRN PRN Reason: Cough Docusate Sodium (Docusate Sodium 100 Mg Capsule) 100 mg PO DAILY PRN PRN Reason: Constipation Enoxaparin Sodium (Enoxaparin Sodium 40 Mg/0.4 Ml Syringe) 40 mg SUBCUT Q24H [facility] Last Admin: 08/27/23 21:22 Dose: 40 mg Finasteride (Finasteride 5 Mg Tablet) 5 mg PO DAILY [facility] Meropenem 1 gm/ Sodium (Chloride) 100 mls @ 200 mls/hr IV Q12H [facility] Last Infusion: 08/27/23 22:10 Dose: Infused Levothyroxine Sodium (Levothyroxine Sodium 75 Mcg Tablet) 75 mcg PO DAILY@0600 [facility] Last Admin: 08/28/23 06:19 Dose: Not Given Lisinopril (Lisinopril 20 Mg Tablet) 20 mg PO DAILY [facility]; Protocol Melatonin (Melatonin 3 Mg Tablet) 6 mg PO BEDTIME PRN PRN Reason: Insomnia Last Admin: 08/27/23 21:22 Dose: 6 mg Metoprolol Tartrate (Metoprolol Tartrate 25 Mg Tablet) 25 mg PO BID [facility]; Protocol Last Admin: 08/27/23 21:22 Dose: 25 mg Ondansetron HCl (Ondansetron Hcl 4 Mg/2 Ml Vial) 4 mg IVPUSH Q8H PRN PRN Reason: Nausea and Vomiting Sodium Chloride (0.9 % Sodium Chloride Flush 3 Ml Syringe) 3 ml IVFLUSH QSHIFT [facility] Last Admin: 08/27/23 21:23 Dose: 3 ml Tamsulosin HCl (Tamsulosin Hcl 0.4 Mg Capsule) 0.4 mg PO DAILY [facility] Home Medications Medication Instructions Recorded Confirmed Last Taken Type allopurinol 300 mg tablet 300 mg PO DAILY 05/08/23 08/27/23 Unknown History atorvastatin 40 mg tablet 40 mg PO DAILY 05/08/23 08/27/23 Unknown History finasteride 5 mg tablet 5 mg PO DAILY 05/08/23 08/27/23 Unknown History levothyroxine 75 mcg capsule 75 mcg PO DAILY 05/08/23 08/27/23 Unknown History lisinopril 20 mg tablet 20 mg PO DAILY 05/08/23 08/27/23 Unknown History tamsulosin 0.4 mg capsule 0.4 mg PO DAILY 05/08/23 08/27/23 Unknown History metoprolol tartrate 25 mg tablet 25 mg PO BID 08/26/23 08/27/23 Unknown History Exam Height,Weight and Vital Signs: Height 5 ft 10 in Weight 67.9 kg Last Vital Signs Temp 97.7 F 08/28/23 08:00 Pulse 63 08/28/23 08:00 Resp 16 08/28/23 08:00 BP 139/65 08/28/23 08:00 Pulse Ox 98 08/28/23 08:00 O2 Del Method Room Air 08/28/23 08:00 Pertinent Lab Results Pertinent Lab Results: Laboratory Tests 08/26/23 16:54 WBC 9.7 RBC 3.99 L Hgb 11.7 L Hct 35.8 L MCV 89.7 MCH 29.3 MCHC 32.7 RDW 12.9 Plt Count 338 D MPV 9.0 L Immature Gran % (Auto) 0.7 H Neut % (Auto) 78.5 H Lymph % (Auto) 10.6 L [place] % (Auto) 9.2 Eos % (Auto) 0.8 Baso % (Auto) 0.2 Lymph # (Auto) 1.0 L [place] # (Auto) 0.9 Eos # (Auto) 0.1 Baso # (Auto) 0.0 Abs Immat Gran (auto) 0.07 H Absolute Neuts (auto) 7.6 Absolute Nucleated RBC 0.000 Nucleated RBC % (auto) 0.0 ESR 87 H Sodium 140 Potassium 4.0 Chloride 105 Carbon Dioxide 28 Anion Gap 11 L BUN 22 H Creatinine 1.06 Estim Creat Clear Calc 47.1 Estimated GFR > 60 Random Glucose 155 H Lactic Acid 1.2 Calcium 9.6 Total Bilirubin 0.4 Direct Bilirubin 0.2 AST 30 ALT 38 Alkaline Phosphatase 79 C-Reactive Protein 5.13 H Total Protein 7.5 Albumin 3.6 Airway Mallampati Class: III TM Dist: >3cm Neck ROM: Full Denture: Upper Loose/Missing/Broken Teeth: Yes, Upper and Lower Heart: RRR Lungs: CTA Assessment and Plan Assessment Anesthesia Assessment: Anesthesia Plan Discussed and Chart Reviewed Final Anesthetic Review History of Problems with Anesthesia: No NPO: Yes ASA Class: III Final Preanesthetic Review: Meds/Allgs Chart Reviewed, Consent Obtained/Reviewed and Anes Risks/Benef Reviewed Patient Risk: Intermediate Procedure Risk: Low Anesthetic Plan Anesthetic Plan: GA Disposition: Standard PACU
--- NOTE | 2023-08-28 10:03 | W.PM.OPN ---
Operative Note Operative Note Date of Service: 08/28/23 Narrative: Preop diagnosis: Recurrent osteomyelitis, big toe on the right Postop diagnosis: The same Procedure: Amputation of the big toe, right foot, including metatarsal head Surgeon: Hank Springer MD The patient is an 87-year-old male, with recurrent and worsening osteomyelitis of the big toe on the right side along with discharge, open wound. He wanted to proceed with amputation. He understood the technique of the planned procedure as well as the risks, benefits, and alternatives. His family involved with the discussion. He was brought to the operating room. He was placed supine under general anesthesia via laryngeal mask airway. The right foot was prepped and draped in these was sterile fashion. A surgical time-out was done. The patient was receiving scheduled IV antibiotics . I marked my planned line of incision. I infiltrated this with Lidocaine 1%. I made the incision blade 15. This was made around the toe towards the lateral aspect of the foot. I then used electrocautery to deepen the incision. I used the curved Perez scissors to cut through thick tendons and alternated this with electrocautery readily was able to expose the metatarsal head. I used the periosteal elevator to clear up the rest of the metatarsal head. I then used the bone saw to divide this. I completed transection of the entire big toe along with the metatarsal head by dividing the attached soft tissue including tendons using scissors. This was sent as a specimen. I copies irrigated. I cauterized oozing areas. I applied bone wax on the oozing stump of the bone. I observed for mass stasis. Once hemostasis was confirmed, I reapposed the deep subcutaneous layer with Polysorb 2-0 interrupted sutures. Skin closure was achieved with full-thickness nylon 2-0 simple interrupted sutures. I infiltrated the area with Marcaine 0.5% for postop analgesia. Thick dressings were applied. The foot was wrapped with Kerlix and Ajit bandage. The procedure was completed. The patient tolerated procedure well. There were no immediate occasions. Estimated blood loss was about disease sees The patient was extubated without difficulty and transferred to the recovery room with stable vital signs.
--- NOTE | 2023-08-28 10:36 | MHC.CM.PN ---
Per MD rounds No discharge today. Patient is scheduled for OR today: GR toe amp. DP Home with [facility]. Patients daughter will transport home.
[2023-08-28] MEDS: Atorvastatin Calcium 40 MG TABLET PO (11:05)
[2023-08-28] MEDS: 0.9 % Sodium Chloride Flush 3 ML SYRINGE IVFLUSH ×3 (11:05→20:50)
[2023-08-28] MEDS: Metoprolol Tartrate 25 MG TABLET PO ×2 (11:08→20:49)
[2023-08-28] MEDS: Finasteride 5 MG TABLET PO (11:08)
[2023-08-28] MEDS: lisinopriL 20 MG TABLET PO (11:08)
[2023-08-28] MEDS: allopurinoL 300 MG TABLET PO (11:08)
[2023-08-28] MEDS: Tamsulosin HCL 0.4 MG CAPSULE PO (11:08)
--- NOTE | 2023-08-28 11:18 | PC.NURSE ---
morning meds given late d/t patient being at surgery for great right toe amputation
--- NOTE | 2023-08-28 12:48 | PM.EVENT ---
Event Note Date of Service: 08/28/23 Event Note: seen postop alert, looks comfortable dressings dry keep right leg elevated pain control will need visiting nurse to change dressings starting Thursday or Thursday will keep current dressings on until Thursday or Thursday dry dressings, wrap foot with Kerlix and Ajit Bandage ffup in office in 2-3 weeks family at bedside - updated Time Spent With Patient Time: Total time managing care of this patient today ____ minutes.
[2023-08-28] MEDS: oxyCODONE HCl Immed Release 5 MG TABLET 10 MG PO ×2 (13:54→18:13)
--- NOTE | 2023-08-28 16:00 | HO.PM.IMPN ---
Subjective Subjective Date of Service: 08/28/23 Interval History: seen and examined after surgery - follow up for osteomyelitis s/p great toe amp pain controlled no specific complaints Review of Systems Review of Systems: Yes all other systems are reviewed and are negative Constitutional Constitutional: Denies chills and Denies fever(s) Cardiovascular Cardiovascular: Denies chest pain, Denies palpitations and Denies dyspnea Respiratory Respiratory: Denies cough and Denies dyspnea Gastrointestinal Gastrointestinal: Denies abdominal pain Endocrine Endocrine: Denies palpitations Physical Exam Vital Signs: Vital Signs: Last Vital Signs Temp 97.6 F 08/28/23 15:38 Pulse 71 08/28/23 15:38 Resp 18 08/28/23 15:38 BP 124/58 L 08/28/23 15:38 Pulse Ox 95 08/28/23 15:38 O2 Del Method Room Air 08/28/23 15:38 BMI result Body Mass Index 21.5 Const: General: cooperative, comfortable, no acute distress, alert and awake Nutritional Appearance: average body habitus Orientation/consciousness: patient oriented x3 Resp: Effort & Inspection: normal respiratory effort, able to speak in complete sentences, no respiratory distress and no use of accessory muscles Cardio: Rate: regular rate GI: Palpation (GI): Soft to palpation Skin: Other: foot wrapped in c/d/i dressing Neuro: General: patient oriented x3 Objective Data Active Medications Acetaminophen (Acetaminophen 325 Mg Tablet) 650 mg PO Q6H PRN PRN Reason: Pain, Mild (Pain Scale 1-3) Albuterol Sulfate (Albuterol Sulfate (0.083%) 2.5 Mg/3 Ml Vial.Neb) 2.5 mg INHALE ONCE PRN PRN Reason: Wheezing Allopurinol (Allopurinol 300 Mg Tablet) 300 mg PO DAILY [facility] Last Admin: 08/28/23 11:08 Dose: 300 mg Documented By: ISADORA Atorvastatin Calcium (Atorvastatin Calcium 40 Mg Tablet) 40 mg PO DAILY [facility] Last Admin: 08/28/23 11:05 Dose: 40 mg Documented By: ISADORA Benzonatate (Benzonatate 100 Mg Capsule) 100 mg PO TID PRN PRN Reason: Cough Docusate Sodium (Docusate Sodium 100 Mg Capsule) 100 mg PO DAILY PRN PRN Reason: Constipation Enoxaparin Sodium (Enoxaparin Sodium 40 Mg/0.4 Ml Syringe) 40 mg SUBCUT Q24H [facility] Last Admin: 08/27/23 21:22 Dose: 40 mg Documented By: NATALIA Fentanyl (Fentanyl Citrate/Pf 100 Mcg/2 Ml Vial) 25 mcg IVPUSH Q5M PRN; Protocol PRN Reason: Pain, Moderate(Pain Scale 4-6) Finasteride (Finasteride 5 Mg Tablet) 5 mg PO DAILY [facility] Last Admin: 08/28/23 11:08 Dose: 5 mg Documented By: ISADORA Meropenem 1 gm/ Sodium (Chloride) 100 mls @ 200 mls/hr IV Q12H [facility] Last Infusion: 08/28/23 12:00 Dose: Infused Documented By: ISADORA Levothyroxine Sodium (Levothyroxine Sodium 75 Mcg Tablet) 75 mcg PO DAILY@0600 [facility] Last Admin: 08/28/23 06:19 Dose: Not Given Documented By: NATALIA Non-Admin Reason: Patient Refused Lisinopril (Lisinopril 20 Mg Tablet) 20 mg PO DAILY [facility]; Protocol Last Admin: 08/28/23 11:08 Dose: 20 mg Documented By: ISADORA Melatonin (Melatonin 3 Mg Tablet) 6 mg PO BEDTIME PRN PRN Reason: Insomnia Last Admin: 08/27/23 21:22 Dose: 6 mg Documented By: NATALIA Metoprolol Tartrate (Metoprolol Tartrate 25 Mg Tablet) 25 mg PO BID [facility]; Protocol Last Admin: 08/28/23 11:08 Dose: 25 mg Documented By: ISADORA Morphine Sulfate (Morphine Sulfate 2 Mg/Ml Cartridge) 2 mg IVPUSH Q4H PRN; Protocol PRN Reason: Pain, Severe (Pain Scale 7-10) Ondansetron HCl (Ondansetron Hcl 4 Mg/2 Ml Vial) 4 mg IVPUSH Q8H PRN PRN Reason: Nausea and Vomiting Ondansetron HCl (Ondansetron Hcl 4 Mg/2 Ml Vial) 4 mg IVPUSH ONCE PRN PRN Reason: Nausea and Vomiting Oxycodone HCl (Oxycodone Hcl Immed Release 5 Mg Tablet) 10 mg PO Q4H PRN PRN Reason: Pain, Moderate(Pain Scale 4-6) Last Admin: 08/28/23 13:54 Dose: 10 mg Documented By: ISADORA Sodium Chloride (0.9 % Sodium Chloride Flush 3 Ml Syringe) 3 ml IVFLUSH QSHIFT [facility] Last Admin: 08/28/23 11:05 Dose: 3 ml Documented By: ISADORA Tamsulosin HCl (Tamsulosin Hcl 0.4 Mg Capsule) 0.4 mg PO DAILY [facility] Last Admin: 08/28/23 11:08 Dose: 0.4 mg Documented By: ISADORA Labs 08/26/23 16:54 08/26/23 16:54 Microbiology Microbiology Results: Microbiology 08/26/23 18:51 Blood Culture - Preliminary Blood - Venous No growth after 24 hours. 08/26/23 16:54 Blood Culture - Preliminary Blood - Venous No growth after 24 hours. Assessment and Plan (1) Osteomyelitis: Status: Acute Plan Pt is a 87-year-old male with a PMH significant for?CAD s/p triple bypass, HTN, HLD, BPH, hypothyroidism, gout, and hx of osteomyelitis of 1st digit on right foot who presents to the ED with?recurrent erythema and purulent discharge from 1st digit of right foot. Patient recently completed a 40-day course of IV ertapenem, and then an additional month of doxycycline p.o. for osteomyelitis. Pt will be admitted to the hospital treatment further evaluation of worsening osteomyelitis of 1st digit of right foot that has failed outpatient therapy. Osteomyelitis of 1st digit of right foot s/p outpatient course of iv and po abx Xray today shows worsening osteomyelitis with new pathologic fracture, elevated ESR and CRP seen by general surgery - s/p great toe amputation 08/28 discussed with ID, will d/c meropenem blood cultures negative to date CAD/HLD Continue statin HTN Continue home antihypertensives, lisinopril and metoprolol Hypothyroidism Continue levothyroxine BPH Continue tamsulosin Hx of gout Continue allopurinol Full Code Attending:?Dr. James DVT Prophylaxis: Lovenox dispo: likely home with VNA for dressing changes Requires ongoing hospitalization for?post op care,safe dispo Quality Stroke Does the patient have a stroke diagnosis?: No VTE Prior VTE?: No VTE Risk Level:: Medical - moderate - high VTE Device Contraindication: Treatment Not Indicated VTE Drug Contraindication: N/A - Med Ordered
--- NOTE | 2023-08-28 17:36 | P.CDIM_ITS ---
PROVIDER RESPONSE TEXT: To clarify, the appropriate diagnosis supported by the clinical indicators: Other (explain): acute on chronic QUERY TEXT: PHYSICIAN'S DOCUMENTATION REQUEST Date of Query: 08/28/2023 07:56 AM EST Patient Name: Stephen Huffman Admit Date: 08/27/2023 Dear Marianna Ervin, A review of the medical record indicates additional documentation may be needed. Please review below and update the documentation accordingly. Clinical Indicators: PN: Osteomyelitis of 1st digit of right foot. Previously completed 40-day course of IV ertapenem, additional 30-day course of doxy, finished one we ek ago. Xray today shows worsening osteomyelitis with new pathologic fracture, elevated ESR and CRP. Plan for amputation in am Based on the above, please clarify in the Progress Notes further specificity regarding the acuity of Osteomyelitis within the body of the plan: Acute osteomyelitis Subacute osteomyelitis Chronic osteomyelitis Other (explain) Clinically unable to determine (explain) Thank you, Shanna Jimenez, CCS, CDIS Use of terms such as suspected, likely, concern for, or probable (associated with a specific diagnosi s that is being evaluated, monitored, or treated as if it exists) are acceptable and can be coded in the inpatient se tting, when documented at the time of discharge. Please use your independent medical judgment in providing your response. THIS QUERY IS PART OF THE PERMANENT MEDICAL RECORD
[2023-08-28] MEDS: Enoxaparin Sodium 40 MG/0.4 ML SYRINGE SUBCUT (20:49)
[2023-08-29 02:43] VITALS: BP 157/72; PULSE 69; RESP 14; TEMP 36; O2SAT 96
[2023-08-29] MEDS: Levothyroxine Sodium 75 MCG TABLET PO (06:20)
[2023-08-29 07:46] VITALS: BP 159/74; PULSE 71; RESP 18; TEMP 36.5; O2SAT 95
[2023-08-29] MEDS: Metoprolol Tartrate 25 MG TABLET PO (08:29)
[2023-08-29] MEDS: Finasteride 5 MG TABLET PO (08:29)
[2023-08-29] MEDS: Atorvastatin Calcium 40 MG TABLET PO (08:29)
[2023-08-29] MEDS: allopurinoL 300 MG TABLET PO (08:29)
[2023-08-29] MEDS: Tamsulosin HCL 0.4 MG CAPSULE PO (08:29)
[2023-08-29] MEDS: lisinopriL 20 MG TABLET PO (08:29)
[2023-08-29] MEDS: 0.9 % Sodium Chloride Flush 3 ML SYRINGE IVFLUSH (08:29)
--- NOTE | 2023-08-29 08:38 | PM.PNGS ---
Subjective Subjective Date of Service: 08/29/23 Interval history: 87-year-old male patient with history of recurrent osteomyelitis of the right great toe now pod 1 following right great toe amputation. He feels well and denies any significant right foot pain. He is anxious to go home. Physical Exam Vital Signs: Vital Signs: Last Vital Signs Temp 97.7 F 08/29/23 07:46 Pulse 71 08/29/23 07:46 Resp 18 08/29/23 07:46 BP 159/74 H 08/29/23 07:46 Pulse Ox 95 08/29/23 07:46 O2 Del Method Room Air 08/29/23 07:46 BMI result Body Mass Index 21.5 Const: General: comfortable and no acute distress Nutritional Appearance: well nourished Resp: Effort & Inspection: normal respiratory effort Extrem: Other: Dressings on right foot are clean, dry and intact. Objective Data Active Medications Acetaminophen (Acetaminophen 325 Mg Tablet) 650 mg PO Q6H PRN PRN Reason: Pain, Mild (Pain Scale 1-3) Albuterol Sulfate (Albuterol Sulfate (0.083%) 2.5 Mg/3 Ml Vial.Neb) 2.5 mg INHALE ONCE PRN PRN Reason: Wheezing Allopurinol (Allopurinol 300 Mg Tablet) 300 mg PO DAILY [facility] Last Admin: 08/29/23 08:29 Dose: 300 mg Documented By: KEY Atorvastatin Calcium (Atorvastatin Calcium 40 Mg Tablet) 40 mg PO DAILY [facility] Last Admin: 08/29/23 08:29 Dose: 40 mg Documented By: KEY Benzonatate (Benzonatate 100 Mg Capsule) 100 mg PO TID PRN PRN Reason: Cough Docusate Sodium (Docusate Sodium 100 Mg Capsule) 100 mg PO DAILY PRN PRN Reason: Constipation Enoxaparin Sodium (Enoxaparin Sodium 40 Mg/0.4 Ml Syringe) 40 mg SUBCUT Q24H [facility] Last Admin: 08/28/23 20:49 Dose: 40 mg Documented By: NATALIA Fentanyl (Fentanyl Citrate/Pf 100 Mcg/2 Ml Vial) 25 mcg IVPUSH Q5M PRN; Protocol PRN Reason: Pain, Moderate(Pain Scale 4-6) Finasteride (Finasteride 5 Mg Tablet) 5 mg PO DAILY [facility] Last Admin: 08/29/23 08:29 Dose: 5 mg Documented By: KEY Levothyroxine Sodium (Levothyroxine Sodium 75 Mcg Tablet) 75 mcg PO DAILY@0600 [facility] Last Admin: 08/29/23 06:20 Dose: 75 mcg Documented By: NATALIA Lisinopril (Lisinopril 20 Mg Tablet) 20 mg PO DAILY [facility]; Protocol Last Admin: 08/29/23 08:29 Dose: 20 mg Documented By: KEY Melatonin (Melatonin 3 Mg Tablet) 6 mg PO BEDTIME PRN PRN Reason: Insomnia Last Admin: 08/27/23 21:22 Dose: 6 mg Documented By: NATALIA Metoprolol Tartrate (Metoprolol Tartrate 25 Mg Tablet) 25 mg PO BID [facility]; Protocol Last Admin: 08/29/23 08:29 Dose: 25 mg Documented By: KEY Morphine Sulfate (Morphine Sulfate 2 Mg/Ml Cartridge) 2 mg IVPUSH Q4H PRN; Protocol PRN Reason: Pain, Severe (Pain Scale 7-10) Ondansetron HCl (Ondansetron Hcl 4 Mg/2 Ml Vial) 4 mg IVPUSH Q8H PRN PRN Reason: Nausea and Vomiting Ondansetron HCl (Ondansetron Hcl 4 Mg/2 Ml Vial) 4 mg IVPUSH ONCE PRN PRN Reason: Nausea and Vomiting Oxycodone HCl (Oxycodone Hcl Immed Release 5 Mg Tablet) 10 mg PO Q4H PRN PRN Reason: Pain, Moderate(Pain Scale 4-6) Last Admin: 08/28/23 18:13 Dose: 10 mg Documented By: ISADORA Sodium Chloride (0.9 % Sodium Chloride Flush 3 Ml Syringe) [facility] Last Admin: 08/29/23 08:29 Dose: 3 ml Documented By: KEY Tamsulosin HCl (Tamsulosin Hcl 0.4 Mg Capsule) 0.4 mg PO DAILY [facility] Last Admin: 08/29/23 08:29 Dose: 0.4 mg Documented By: KEY Labs 08/26/23 16:54 08/26/23 16:54 Microbiology Microbiology Results: Microbiology 08/26/23 18:51 Blood Culture - Preliminary Blood - Venous No growth after 48 hours. 08/26/23 16:54 Blood Culture - Preliminary Blood - Venous No growth after 48 hours. Procedures Date of Service Date of Service: 08/29/23 Progress Note: A&P Assessment and plan (1) Osteomyelitis: Status: Acute Plan Pod 1 following right great toe amputation. He tolerated the procedure well and is comfortable this morning. Clear from surgical standpoint for discharge to home. Follow-up with Dr. Springer as outpatient. Time Spent With Patient Time: Total time managing care of this patient today ____ minutes. Quality Stroke Does the patient have a stroke diagnosis?: No VTE Prior VTE?: No VTE Risk Level:: Medical - moderate - high VTE Device Contraindication: Treatment Not Indicated VTE Drug Contraindication: N/A - Med Ordered
[2023-08-29 08:46] VITALS: O2SAT 97
[2023-08-29] MEDS: oxyCODONE HCl Immed Release 5 MG TABLET 10 MG PO (09:57)
--- NOTE | 2023-08-29 10:17 | HO.POSTANES ---
Post Anesthesia Evaluation Post Anesthesia Evaluation Date of Service: 08/28/23 Vital Signs: Vital Signs Temp Pulse Resp BP Pulse Ox O2 Del Method 08/29/23 08:46 97 Room Air 08/29/23 07:46 97.7 F 71 18 159/74 H 95 Room Air 08/29/23 02:43 96.8 F 69 14 157/72 H 96 Room Air Anesthesia: General Mental Status: Awake Pain Control: Satisfactory Nausea/Vomiting: None Hydration: Adequate Anesthesia-Related Issues: No Anes. Related Issues
--- NOTE | 2023-08-29 11:12 | PM.DS ---
DS: Providers Provider Date of Service: 08/29/23 Date of admission: 08/26/23 22:18 Date of discharge: 08/29/23 Primary care physician: Fausto Leyva MD Consults: 08/26/23 21:01 Consult to Infectious Diseases Routine Consulting Provider: BELLA CONLEY Reason for consultation: Recurrent osteomyelitis 08/26/23 22:39 Consult to General Surgery Routine Consulting Provider[place] [facility] Reason for consultation: Recurrent osteomyelitis of right great toe Consult to Infectious Diseases Routine Consulting Provider: Bella Conley Reason for consultation: Recurrent osteomyelitis of right great toe Attending physician on discharge: Lashawn Castro Discharging clinician: Marianna Ervin DS: Diagnosis Discharge Diagnosis (1) Osteomyelitis: Status: Acute DS: Summary Hospital Course Hospital Course: From H&P on the day of admission Pt is a 87-year-old male with a PMH significant for?CAD s/p triple bypass, HTN, HLD, BPH, hypothyroidism, gout, and hx of osteomyelitis of 1st digit on right foot who presents to the ED with?recurrent erythema and purulent discharge from 1st digit of right foot. Patient recently completed a 40-day course of IV ertapenem, and then an additional month of doxycycline p.o. for osteomyelitis. Patient is followed by Dr. Conley in infectious disease. He had a follow-up appointment at her office earlier this afternoon and was immediately sent to the ED for further evaluation after she examined him and found his toe to have significantly deteriorated since prior visit. Pt himself does not seem particularly concerned about his toe, stating it neither hurts or bothers him at all. Pt is a rather poor historian and unable to offer much in the way of details to clarify HPI. However, family at beside note the toe looked much worse during Thanksgiving and was draining a purulent serous sanguinous fluid. Pt denies systemic symptoms: no fever, chills, N/V. Denies chest pain/pressure, palpitations. No shortness of breath. In the ED pt was afebrile and with pulse and respiratory rate WNL. Labs were significant for stable chronic anemia of 11.7/35.8, C reactive protein 5.13, ESR 87, otherwise grossly unremarkable. Electrolytes WNL. Renal function baseline. Hepatic function WNL. X-ray of right toe showed worsening osteomyelitis of the distal phalanx and new pathological fracture. Pt was treated with ertapenem and IVF. Pt will be admitted to the hospital treatment further evaluation of worsening osteomyelitis of 1st digit of right foot that has failed outpatient therapy. Osteomyelitis of right great toe Patient previously completed outpatient treatment with both IV and PO antibiotics. Xray shows worsening osteomyelitis with new pathologic fracture, with elevated ESR and CRP. He was initially started on IV meropenem. He was seen by surgery who recommended right great toe amputation which was done on 08/28. He has had an uncomplicated postoperative course. He will be discharged home with VNA services for dressing changes and should call to schedule a follow-up appointment with surgery in the next 2-3 weeks. No changes were made to baseline medications. Time Attestation Discharge coordination time: Greater than 30 minutes Quality: Safe Use of Opioids Does Pt have an Active Cancer Diagnosis on the Problem List?: No Quality: Stroke Does the patient have a stroke diagnosis?: No Physical Exam Vital Signs: Vital Signs: Last Vital Signs Temp 97.7 F 08/29/23 07:46 Pulse 71 08/29/23 07:46 Resp 18 08/29/23 07:46 BP 159/74 H 08/29/23 07:46 Pulse Ox 97 08/29/23 08:46 O2 Del Method Room Air 08/29/23 08:46 BMI result Body Mass Index 21.5 Const: General: cooperative, comfortable, no acute distress, alert and awake Nutritional Appearance: average body habitus Orientation/consciousness: patient oriented x3 Resp: Effort & Inspection: normal respiratory effort, able to speak in complete sentences, no respiratory distress and no use of accessory muscles Cardio: Rate: regular rate GI: Palpation (GI): Soft to palpation Skin: Other: foot wrapped in c/d/i dressing Neuro: General: patient oriented x3 DS: Data Data Completed and Pending Pending studies at discharge: Pending at discharge 08/28/23 09:38 Surgical [PTH] Routine Labs on day of discharge: Preliminary micro results at discharge 08/26/23 18:51 Blood Culture - Preliminary Blood - Venous No growth after 48 hours. 08/26/23 16:54 Blood Culture - Preliminary Blood - Venous No growth after 48 hours. Discharge Plan Discharge Anticipated Discharge Date/Time: 08/29/23 11:05 Patient Disposition: Home Health Service Discharge Diagnosis: Right great toe osteomyelitis Referrals: Hank Springer MD [Physician] - 2 Weeks Fausto Leyva MD [Primary Care Provider] - 1 Week Discharge Medications: New oxycodone 5 mg tablet 5 mg PO Q6H PRN (Reason: pain) Qty: 20 0RF Rx Instructions: Partial Fill upon patient request. Continued metoprolol tartrate 25 mg tablet 25 mg PO BID levothyroxine 75 mcg capsule 75 mcg PO DAILY finasteride 5 mg tablet 5 mg PO DAILY allopurinol 300 mg tablet 300 mg PO DAILY lisinopril 20 mg tablet 20 mg PO DAILY tamsulosin 0.4 mg capsule 0.4 mg PO DAILY atorvastatin 40 mg tablet 40 mg PO DAILY Discharge Orders: Discharge Order (Routine); Ordered 08/29/23 Ordered By: Marianna Ervin Activity on Discharge: As tolerated Stand Alone Forms: Patient Portal Discharge page Care Plan Goals: see below Health Concerns: ostemyelitis of right great toe Plan of Treatment: Call to schedule follow up appointment with Dr. Gian JEFFERSON for assistance with dressing changes Assessment: see discharge summary
--- NOTE | 2023-08-29 11:17 | W.MHC.F2F ---
Service Date Service Date: 08/29/23 Encounter Date of encounter: 08/29/23 Reasons for Services Signs and symptoms assessed: needs [facility] [facility] for dressing changes following right great toe amputation: dry dressings, wrap foot with Kerlix and Ajit Bandage Reason for [facility]: wound care MD Overseeing Care: Fausto Leyva Homebound: Leaving the home is medically contraindicated at this time without the asist of a device and/or another person due th the listed conditions above and below. Reason homebound: unsteady gait / fall risk Certification: Based on the above findings, I certify that this patient is confined to the home and needs intermittent [facility] care, physical therapy and/or speech therapy, or continues to need occupational therapy. The patient is under my care, and I have initiated the establishment of the plan of care. The patient will be followed by a physician who will periodically review the plan of care. Time Spent With Patient Time: Total time managing care of this patient today ____ minutes.
--- NOTE | 2023-08-29 11:28 | MHC.CM.PN ---
Addendum entered by Odalis Willson 08/29/23 16:22: [facility] EXPRESSED CONCERNS THAT THE PT MAY HAVE A LAPSE IN COVERAGE FOR VNA ORDERS HIS PCP IS LEAVING HIS CURRENT PRACTICE ON 09/11/23 AND NOT STARTING AT THE NEW ONE UNTIL SOMETIME IN SEPTEMBER 2023. CM DID MESSAGE THE SURGEON COVERING TODAY TO DETERMINE IF THEY WOULD BE ABLE TO WRITE ORDERS BUT THEY HAVE NOT YET RECEIVED THE MESSAGE. CM DID ASK [facility] TO CONFIRM IF THEY WOULD BE ABLE TO SEE THE PT BY THURSDAY WITHOUT KNOWING IF THE SURGEONS WOULD COVER THE ORDERS, OR IF THEY WOULD PREFER CM SEND OTHER REFERRALS. CM DID NOT HEAR BACK. CM WAITED UNTIL APPROXIMATELY 1500 HOURS AND THEN MADE A REFERRAL TO [facility] TO ENSURE PT WOULD BE SEEN BY A SKILLED NURSE IN THE NEXT 48 HOURS. [facility] ACCEPTED REFERRAL AND WILL SEE PT TOMORROW CM DID LEAVE A VM MESSAGE FOR PT PROVIDING HIM WITH AN UPDATE REGARDING THE NEW VNA Original Note: PT WAS EXPECTED TO DC HOME WITH [facility]NA SERVICES PREVIOUS CM MADE A REFERRAL TO [facility] BASED ON PTS STATED PREFERENCES THIS CM RECEIVED A MESSAGE FROM [facility] STATING THE PTS PCP WILL BE LEAVING THE PRACTICE ON 09/11/23, THEREFORE THEY WERE CONCERNED WITH WHERE THEY WOULD BE GETTING PTS ORDERS. CM CONFIRMED WITH PT THAT HE WILL BE STAYING WITH HIS PROVIDER WHEN HE CHANGES PRACTICE LOCATIONS THIS INFORMATION WAS RELAYED TO [facility] VIA Paxer PT WILL DC HOME TODAY WITH [facility]IA [facility]
== END 2023-08-29 13:26 | disposition home health service (06) | DRG 504 ==
LOC: HO.ED 21:21 → HO.EDOVER 22:43 → HO.S3 08-27 04:34
PROVIDERS: Physician Assistant Medical; Surgery; Admitting Provider Student in an Organized Health Care Education/Training Program; Emergency Provider Emergency Medicine; PCP Internal Medicine; Visit Provider Physician Assistant Medical
PROC: 0Y6P0Z0 Detachment at Right 1st Toe, Complete, Open Approach (ICD-10-PCS; principal; 2023-08-28 09:40)
DX: M86.171 Other acute osteomyelitis, right ankle and foot (principal); M84.674A Pathological fracture in other disease, right foot, initial encounter for fracture; M86.671 Other chronic osteomyelitis, right ankle and foot; I10 Essential (primary) hypertension; I25.10 Atherosclerotic heart disease of native coronary artery without angina pectoris; N40.0 Benign prostatic hyperplasia without lower urinary tract symptoms; M10.9 Gout, unspecified; Z95.1 Presence of aortocoronary bypass graft; Z87.891 Personal history of nicotine dependence; Z79.890 Hormone replacement therapy; Z79.899 Other long term (current) drug therapy
CPT/HCPCS: 36415; 73660; 80048; 80076; 83605; 85025; 85652; 86140; 87040; 88305; 88311; 93005; 99024; 99212; 99285; J0665; J1100; J1335; J1650; J2185; J2405; J2704

== ENCOUNTER → 2023-08-26 22:18 | Outpatient (BNV) | payer MEDICARE, SELFPAY | PROVIDERS: Admitting Provider Student in an Organized Health Care Education/Training Program; Emergency Provider Emergency Medicine; PCP Internal Medicine; Visit Provider Student in an Organized Health Care Education/Training Program | DX: M86.60 Other chronic osteomyelitis, unspecified site (principal); Z89.411 Acquired absence of right great toe | CPT/HCPCS: 99223; 99232; 99239; G0180 ==

== ENCOUNTER → 2023-08-26 22:18 | Outpatient (BNV) | payer MEDICARE, SELFPAY | PROVIDERS: Admitting Provider Student in an Organized Health Care Education/Training Program; Emergency Provider Emergency Medicine; PCP Internal Medicine; Visit Provider Surgery | DX: M86.9 Osteomyelitis, unspecified (principal) | CPT/HCPCS: 28810; 99222; 99499 ==

== ENCOUNTER 2023-09-10 14:57 | Outpatient (AMB) | payer MEDICARE, SELFPAY ==
--- NOTE | 2023-09-10 14:59 | MHC.OFFVIS ---
Intake Vital Signs 09/10/23 15:26 BP 125/59 L Blood Pressure Location Rt brachial Position Sitting Pulse 89 Intake Visit Reasons: s/p amputation of the right big toe Intake Note: This patient presents for a post-op assessment status post Amputation of the big toe, right foot, including metatarsal head. 08/28/2023 Patient c/o; reports no changes or complaints at this time. Scrap Hoist Operator Required: No Accompanied by: Family/Other Allergies No Known Allergies Allergy (Verified 09/10/23 15:27) HPI s/p amputation of the right big toe HPI Details 87-year-old male here for a postop visit. He underwent amputation of the big toe for recurrent osteomyelitis last 08/28/2023. He tolerated the procedure well. He currently denies significant complaints. Dressing changes are being done by a visiting nurse at home. [facility] Medical History Hypothyroidism BPH (benign prostatic hyperplasia) CAD (coronary artery disease) Gout HTN (hypertension) Peripheral vascular disease Surgical History Hx of surgical procedure (~08/28/23) S/P CABG (coronary artery bypass graft) Osteomyelitis Social History Household Members: Spouse Housing: House Do you presently have visiting nurse or other home services: No Patient Tobacco Use Status: Former Tobacco user Tobacco use type: Cigarette Advance Directives Date on File: 06/02/23 service: Yes Review of Systems Const Denies chills and Denies fever(s) Card Denies chest pain, Denies dyspnea and Denies dyspnea on exertion Resp Denies cough, Denies dyspnea and Denies dyspnea on exertion GI Denies hematochezia and Denies change in bowel habits Denies hematuria and Denies difficulty urinating Musc Denies back pain and Denies limited range of motion Neuro Denies focal weakness and Denies convulsions Psych Denies depression and Denies mood swings Physical Exam Const General: comfortable and no acute distress Resp Effort & Inspection: normal respiratory effort Extrem Other: Amputation site is healing well, sutures intact no evidence of infection Assessment & Plan Assessment & Plan (1) Osteomyelitis: Comment: He has OM and creatinine .7 so can take full dose antibiotics. He has no specific organism offered. Code(s): M86.9 - Osteomyelitis, unspecified Plan: Status post amputation of the big toe. The incision is well healed. I removed his sutures. The wound edges remained well apposed. I applied Steri-Strips. I will see him again for another wound check in about 2-3 weeks. Coding Level of Care Code Global (81544) Diagnoses Osteomyelitis M86.9
[2023-09-10 15:26] VITALS: BP 125/59; PULSE 89
== END 2023-09-10 15:29 | disposition home or self-care (01) ==
PROVIDERS: PCP Internal Medicine; Visit Provider Surgery
DX: M86.9 Osteomyelitis, unspecified (principal)
CPT/HCPCS: 99024

== ENCOUNTER → 2023-09-10 14:57 | Outpatient (BNVA) | payer MEDICARE, SELFPAY | PROVIDERS: PCP Internal Medicine; Visit Provider Surgery | DX: Z47.81 Encounter for orthopedic aftercare following surgical amputation (principal); Z89.411 Acquired absence of right great toe; M86.9 Osteomyelitis, unspecified | CPT/HCPCS: 99212 ==

== ENCOUNTER 2023-09-24 12:46 | Outpatient (AMB) | payer MEDICARE, SELFPAY ==
--- NOTE | 2023-09-24 12:47 | MHC.OFFVIS ---
Intake Intake Visit Reasons: s/p amputation of the right big toe Intake Note: This patient presents for a post-op assessment status post amputation of the right big toe. Patient c/o; reports no complaints at this time. Administrative Assistant Coordinator Required: No Accompanied by: Family/Other Allergies No Known Allergies Allergy (Verified 09/24/23 12:56) HPI s/p amputation of the right big toe HPI Details He is here for follow-up after amputation of the right big toe. I had seen him in the office about 3 weeks ago and this had been healing well. I had asked him to come back for another final wound check. He denies any new complaints. He denies any significant drainage. [facility] Medical History Hypothyroidism BPH (benign prostatic hyperplasia) CAD (coronary artery disease) Gout HTN (hypertension) Peripheral vascular disease Surgical History Hx of surgical procedure (~08/28/23) S/P CABG (coronary artery bypass graft) Osteomyelitis Social History Household Members: Spouse Housing: House Do you presently have visiting nurse or other home services: No Patient Tobacco Use Status: Former Tobacco user Tobacco use type: Cigarette Advance Directives Date on File: 06/02/23 service: Yes Review of Systems Const Denies chills and Denies fever(s) Card Denies chest pain, Denies dyspnea and Denies dyspnea on exertion Resp Denies cough, Denies dyspnea and Denies dyspnea on exertion GI Denies hematochezia and Denies change in bowel habits Denies hematuria and Denies difficulty urinating Musc Denies back pain and Denies limited range of motion Neuro Denies focal weakness and Denies convulsions Psych Denies depression and Denies mood swings Physical Exam Const Other: Using a walker General: comfortable and no acute distress Extrem Other: Right big toe amputation site is well healed with 3 small areas of hypergranulation on the incision no cellulitis Assessment & Plan Assessment & Plan (1) Osteomyelitis: Comment: He has OM and creatinine .7 so can take full dose antibiotics. He has no specific organism offered. Code(s): M86.9 - Osteomyelitis, unspecified Plan: Status post amputation of the right big toe. The incision is well healed. However, there are about 3 small areas with hypergranulation the incision. I will see him again for another wound check in about a month. I have instructed him on continuing with good care of the right foot. Coding Level of Care Code Global (53427) Diagnoses Osteomyelitis M86.9
== END 2023-09-24 13:09 | disposition home or self-care (01) ==
PROVIDERS: PCP Internal Medicine; Visit Provider Surgery
DX: M86.9 Osteomyelitis, unspecified (principal)
CPT/HCPCS: 99024

== ENCOUNTER → 2023-09-24 12:46 | Outpatient (BNVA) | payer MEDICARE, SELFPAY | PROVIDERS: PCP Internal Medicine; Visit Provider Surgery | DX: M86.9 Osteomyelitis, unspecified (principal); Z89.411 Acquired absence of right great toe | CPT/HCPCS: 99212 ==

== ENCOUNTER 2023-10-14 13:55 | Outpatient (AMB) | payer MEDICARE, SELFPAY ==
--- NOTE | 2023-10-14 13:57 | A.OFFVIS_ITS ---
Intake Intake Visit Reasons: wound check, right big toe amputation Intake Note: This patient presents for a wound check status post right big toe amputation. Patient c/o; reports bleeding. Electro Optics Engineer Required: No Accompanied by: Family/Other Allergies No Known Allergies Allergy (Verified 10/14/23 14:15) HPI wound check, right big toe amputation HPI Details He is here for follow-up after amputation of the right big toe last 08/28/2023. He continues to do well. I last saw him in the office about 3 weeks ago and there was note of 3 areas of hypergranulation along the amputation site. Dressing changes are being done by the visiting nurse. [facility] Medical History Hypothyroidism BPH (benign prostatic hyperplasia) CAD (coronary artery disease) Gout HTN (hypertension) Peripheral vascular disease Surgical History Hx of surgical procedure (~08/28/23) S/P CABG (coronary artery bypass graft) Osteomyelitis Social History Household Members: Spouse Housing: House Do you presently have visiting nurse or other home services: No Patient Tobacco Use Status: Former Tobacco user Tobacco use type: Cigarette Advance Directives Date on File: 06/02/23 service: Yes Review of Systems Const Denies chills and Denies fever(s) Card Denies chest pain, Denies dyspnea and Denies dyspnea on exertion Resp Denies cough, Denies dyspnea and Denies dyspnea on exertion GI Denies hematochezia and Denies change in bowel habits Denies hematuria and Denies difficulty urinating Musc Denies back pain and Denies limited range of motion Neuro Denies focal weakness and Denies convulsions Psych Denies depression and Denies mood swings Physical Exam Const General: comfortable and no acute distress Extrem Other: Right foot big toe amputation site continues to heal well, now 1 area with hypergranulation tissue left, no cellulitis Assessment & Plan Assessment & Plan (1) Osteomyelitis: Comment: He has OM and creatinine .7 so can take full dose antibiotics. He has no specific organism offered. Code(s): M86.9 - Osteomyelitis, unspecified Plan: Status post right big toe amputation. I cauterized the area of hypergranulation. I rewrapped the foot with gauze and Nella roll. I will see him again in the office in about a month. He should continue with daily wound care using dry dressing changes. Coding Level of Care Code Global (96705) Diagnoses Osteomyelitis M86.9
== END 2023-10-14 14:18 | disposition home or self-care (01) ==
PROVIDERS: PCP Internal Medicine; Visit Provider Surgery
DX: M86.9 Osteomyelitis, unspecified (principal)
CPT/HCPCS: 99024

== ENCOUNTER → 2023-10-14 13:55 | Outpatient (BNVA) | payer MEDICARE, SELFPAY | PROVIDERS: PCP Internal Medicine; Visit Provider Surgery | DX: Z47.81 Encounter for orthopedic aftercare following surgical amputation (principal); Z89.411 Acquired absence of right great toe | CPT/HCPCS: 99212 ==

== ENCOUNTER 2023-11-09 11:19 | Outpatient (AMB) | payer MEDICARE, SELFPAY ==
--- NOTE | 2023-11-09 11:21 | MHC.OFFVIS ---
Intake Vital Signs 11/09/23 11:29 BP 137/63 Blood Pressure Location Rt brachial Position Sitting Pulse 86 Intake Visit Reasons: s/p right big toe amputation, 1 mo follow up Intake Note: This patient presents for a one month follow-up assessment status post right big toe amputation. Pt c/o; reports no complaints at this time. Grease Cup Filler Required: No Accompanied by: Spouse Allergies No Known Allergies Allergy (Verified 11/09/23 11:30) HPI s/p right big toe amputation, 1 mo follow up HPI Details He is here for follow-up for his right big toe amputation site. He denies any complaints. He says a visiting nurse that his dressings. However, he admits that the dressings have not been changed in 2 days. He denies any pain. He does state that there is some drainage from 1 area of the amputation site. [facility] Medical History Hypothyroidism BPH (benign prostatic hyperplasia) CAD (coronary artery disease) Gout HTN (hypertension) Peripheral vascular disease Surgical History Hx of surgical procedure (~08/28/23) S/P CABG (coronary artery bypass graft) Osteomyelitis Social History Household Members: Spouse Housing: House Do you presently have visiting nurse or other home services: No Patient Tobacco Use Status: Former Tobacco user Tobacco use type: Cigarette Advance Directives Date on File: 06/02/23 service: Yes Review of Systems Const Denies chills and Denies fever(s) Card Denies chest pain, Denies dyspnea and Denies dyspnea on exertion Resp Denies cough, Denies dyspnea and Denies dyspnea on exertion GI Denies hematochezia and Denies change in bowel habits Denies hematuria and Denies difficulty urinating Musc Denies back pain and Denies limited range of motion Neuro Denies focal weakness and Denies convulsions Psych Denies depression and Denies mood swings Physical Exam Vital Signs: Last Vital Signs Pulse 86 11/09/23 11:29 BP 137/63 11/09/23 11:29 Const General: comfortable and no acute distress Resp Effort & Inspection: normal respiratory effort Extrem Other: Right big toe amputation site on area with hypergranulation tissue. Most of the incision is actually well healed already Assessment & Plan Assessment & Plan (1) Osteomyelitis: Comment: He has OM and creatinine .7 so can take full dose antibiotics. He has no specific organism offered. Code(s): M86.9 - Osteomyelitis, unspecified Plan: Status post big toe amputation. Again, there was note of a lot of hypergranulation tissue in an area about 1 cm in diameter on the wound. The rest of the wound is otherwise completely healed. I proceeded to do cauterization with silver nitrate sticks again. I applied dressings and wrapped the foot with Ajit bandage I explained to her that it is important to practice good hygiene with daily wound care and dressing changes. I can do a wound check again in about a month. Coding Level of Care Code Global (32200) Diagnoses Osteomyelitis M86.9
[2023-11-09 11:29] VITALS: BP 137/63; PULSE 86
== END 2023-11-09 11:55 | disposition home or self-care (01) ==
PROVIDERS: PCP Internal Medicine; Visit Provider Surgery
DX: M86.9 Osteomyelitis, unspecified (principal)
CPT/HCPCS: 99024

== ENCOUNTER → 2023-11-09 11:19 | Outpatient (BNVA) | payer MEDICARE, SELFPAY | PROVIDERS: PCP Internal Medicine; Visit Provider Surgery | DX: Z47.81 Encounter for orthopedic aftercare following surgical amputation (principal); M86.9 Osteomyelitis, unspecified; Z89.411 Acquired absence of right great toe | CPT/HCPCS: 99212 ==

== ENCOUNTER 2023-12-09 11:25 | Outpatient (AMB) | payer MEDICARE, SELFPAY ==
--- NOTE | 2023-12-09 11:26 | A.OFFVIS_ITS ---
Intake Intake Visit Reasons: s/p right big toe amputation, 1 mo follow up Intake Note: This patient presents for a one month follow-up assessment for wound check s/p right big toe amputation. Pt's spouse c/o; reports bleeding q.d. , visiting nurses did dressing changes yesterday 12/08/2023 they have concerns with the wound. New Patient Escort Required: No Accompanied by: Family/Other Allergies No Known Allergies Allergy (Verified 12/09/23 11:39) Medication List - Last Reconciled 12/15/23 by Hank Springer MD allopurinol 300 mg PO DAILY atorvastatin 40 mg PO DAILY finasteride 5 mg PO DAILY levothyroxine 75 mcg PO DAILY lisinopril 20 mg PO DAILY metoprolol tartrate 25 mg PO BID oxycodone 5 mg PO Q6H PRN oxycodone 5 mg PO BID PRN tamsulosin 0.4 mg PO DAILY HPI s/p right big toe amputation, 1 mo follow up HPI Details He is here for follow-up after amputation of the right big toe. His is concerned that there is a persistent open wound with bleeding on the amputation site. The patient otherwise denies any pain or tenderness. [facility] Medical History (Updated 12/15/23 @ 13:51 by Hank Springer MD) Open wound Hypothyroidism BPH (benign prostatic hyperplasia) CAD (coronary artery disease) Gout HTN (hypertension) Peripheral vascular disease Surgical History Hx of surgical procedure (~08/28/23) S/P CABG (coronary artery bypass graft) Osteomyelitis Social History Household Members: Spouse Housing: House Do you presently have visiting nurse or other home services: No Patient Tobacco Use Status: Former Tobacco user Tobacco use type: Cigarette Advance Directives Date on File: 06/02/23 service: Yes Review of Systems Const Denies chills and Denies fever(s) Card Denies chest pain, Denies dyspnea and Denies dyspnea on exertion Resp Denies cough, Denies dyspnea and Denies dyspnea on exertion GI Denies hematochezia and Denies change in bowel habits Denies hematuria and Denies difficulty urinating Musc Denies back pain and Denies limited range of motion Neuro Denies focal weakness and Denies convulsions Psych Denies depression and Denies mood swings Physical Exam Const General: comfortable and no acute distress Resp Effort & Inspection: normal respiratory effort Cardio Rate: regular rate Extrem Other: Big toe amputation site on the right clean, no cellulitis, no pus, but there is note of a persistent open wound about 1 cm in diameter with hypergranulation tissue that bleeds easily. Office Procedures Cauterization - Skin lesions Skin Cauter Details: I cauterized the hypergranulation tissue about 1 cm in diameter, and the amputation site on the right big toe using silver nitrate sticks. I then wrapped the entire foot with dressings and a Nella roll. He tolerated procedure well. Multiple silver nitrate sticks were used. Destruction: 85313- Chemical Cautery, Granulation Tissue Assessment & Plan Assessment & Plan (1) Open wound: Code(s): T14.8XXA - Other injury of unspecified body region, initial encounter Plan: He has a persistent open wound on the amputation site of the right big toe. There was note of significant hypergranulation tissue. I cauterized this multiple times with silver nitrate sticks. The was concerned about this persistent open wound. I am going to therefore her for an MRI to rule out osteomyelitis of the remaining metatarsal bone. They are comfortable with the plan. Orders: Orders MR foot RT wo con 12/10/23 T87.89 - Other complications of amputation stump Coding Level of Care Code Est Pt Level 3 (91008) Diagnoses Open wound T14.8XXA CPT Codes Skin Cauter - Destruction: 63712- Chemical Cautery, Granulation Tissue ([id number])
== END 2023-12-09 12:11 | disposition home or self-care (01) ==
PROVIDERS: PCP Internal Medicine; Visit Provider Surgery
DX: T87.81 Dehiscence of amputation stump (principal)
CPT/HCPCS: 17250; 99213

== ENCOUNTER → 2023-12-09 11:25 | Outpatient (BNVA) | payer MEDICARE, SELFPAY | PROVIDERS: PCP Internal Medicine; Visit Provider Surgery | DX: T87.81 Dehiscence of amputation stump (principal) | CPT/HCPCS: 17250; 99212 ==

== ENCOUNTER 2024-01-06 16:55 | Outpatient (REF) | payer MEDICARE, SELFPAY ==
--- NOTE | ~2024-01-06 | MR_ITS ---
EXAMINATION: MR FOOT WITHOUT AND WITH CONTRAST, RIGHT CLINICAL INFORMATION: Nonhealing great toe amputation. COMPARISON: Radiographs 08/26/2023. TECHNIQUE: MRI of the right foot was performed before and after the intravenous administration of 7.5 mL Gadavist on a high-field scanner. FINDINGS: Postsurgical changes related to the great toe amputation. There is a residual soft tissue defect with sinus tract measuring 1.5 cm dorsally with surrounding soft tissue edema/enhancement compatible with cellulitis. This sinus tract extends to the 1st metatarsal osteotomy where there is diffuse marrow edema and enhancement and loss of T1 fatty marrow signal compatible with osteomyelitis. These marrow changes extend to the base of the metatarsal. There is mild marrow edema/enhancement and subtle decrease in T1 fatty marrow signal of the 2nd distal phalanx, which is also concerning for mild or early osteomyelitis. Correlate clinically. Diffuse subcutaneous/soft tissue edema along the dorsum of the foot. Incidental accessory navicular with degenerative change at the junction with the navicular proper. Mild marrow edema of the dorsal lateral cuboid and plantar aspect of the navicular may be degenerative and/or stress related. MR/MR foot RT wo/w con IMPRESSION: 1. Postsurgical changes related to the great toe amputation with a dorsal soft tissue defect and sinus tract extending to the 1st metatarsal osteotomy where there is evidence of osteomyelitis, extending as far proximally as the metatarsal base. 2. Mild marrow edema/enhancement of the 2nd distal phalanx is also concerning for mild or early osteomyelitis. 3. Mild marrow edema of the cuboid and navicular may be degenerative and/or stress related.
[2024-01-06] MEDS: gadobutroL 7.5 ML VIAL IVPUSH (17:58)
== END 2024-01-06 16:56 | disposition home or self-care (01) ==
LOC: HO.MRI 16:55
PROVIDERS: PCP Internal Medicine; Visit Provider Surgery
DX: T14.8XXA Other injury of unspecified body region, initial encounter (principal); T87.89 Other complications of amputation stump
CPT/HCPCS: 73720; A9585

== ENCOUNTER 2024-01-25 15:00 | Outpatient (AMB) | payer MEDICARE, SELFPAY ==
--- NOTE | 2024-01-25 15:05 | MHC.OFFVIS ---
Intake Visit Reasons: s/p right big toe amputation, MRI results Intake Note: This patient presents for a follow-up assessment for foot MRI results. Pt c/o; reports no complaints. [employer] Required: No Accompanied by: Family/Other Allergies No Known Allergies Allergy (Verified 01/25/24 15:10) HPI HPI s/p right big toe amputation, MRI results: Details: 88-year-old male with a persistent wound and drainage from an amputation site. He would undergone amputation of the right big toe including the metatarsal head last 08/28/2023 for osteomyelitis. He tolerated the procedure well. He has had a persistent drainage from an area of the wound although most of the wound has healed well. I had sent him for an MRI therefore because of this persistent drainage. According to the , since I last saw him, the drainage in the wound have improved significantly. There is still some drainage but this has decreased in size. He denies any pain or tenderness on the area. [facility] Medical History Open wound Hypothyroidism BPH (benign prostatic hyperplasia) CAD (coronary artery disease) Gout HTN (hypertension) Peripheral vascular disease Surgical History Hx of surgical procedure (~08/28/23) S/P CABG (coronary artery bypass graft) Osteomyelitis Social History Household Members: Spouse Housing: House Do you presently have visiting nurse or other home services: No Patient Tobacco Use Status: Former Tobacco user Tobacco use type: Cigarette Advance Directives Date on File: 06/02/23 service: Yes Review of Systems Const Denies chills and Denies fever(s) Card Denies chest pain, Denies dyspnea and Denies dyspnea on exertion Resp Denies cough, Denies dyspnea and Denies dyspnea on exertion GI Denies hematochezia and Denies change in bowel habits Denies hematuria and Denies difficulty urinating Musc Denies back pain and Denies limited range of motion Neuro Denies focal weakness and Denies convulsions Psych Denies depression and Denies mood swings Physical Exam Const General: comfortable and no acute distress Orientation/consciousness: patient oriented x3 Neck Neck: Yes no lymphadenopathy Resp Auscultation: clear to auscultation bilaterally Cardio Rhythm: regular rhythm GI Palpation (GI): Soft to palpation, nontender and no guarding Neuro General: patient oriented x3 Extrem Other: Right big toe amputation site mostly well healed, with 1 area that seems to be a little open with granulation tissue, no significant drainage at this time, no cellulitis, no tenderness Assessment & Plan Assessment & Plan (1) Osteomyelitis: Comment: He has OM and creatinine .7 so can take full dose antibiotics. He has no specific organism offered. Code(s): M86.9 - Osteomyelitis, unspecified Category: Surgical Plan: He is follow-up MRI suggests osteomyelitis of the right big toe amputation site at the remaining metatarsal all the way to the metatarsal base. His however says that since I last saw him over a month ago, the area has improved significantly. The drainage has decreased by a lot and the open wound seems to have been more dry He do not want him to undergo further induration at this time in view of clinical improvement. However, I did tell them that if this does not continue to improve, I would recommend removing the entire metatarsal of the 1st toe The understand this. I will see him again in the office in about 3-4 weeks and see how is doing. He should continue with good wound care. Coding Level of Care Code Est Pt Level 3 (49941) Diagnoses Osteomyelitis M86.9
== END 2024-01-25 15:20 | disposition home or self-care (01) ==
PROVIDERS: PCP Internal Medicine; Visit Provider Surgery
DX: M86.9 Osteomyelitis, unspecified (principal)
CPT/HCPCS: 99213

== ENCOUNTER → 2024-01-25 15:00 | Outpatient (BNVA) | payer MEDICARE, SELFPAY | PROVIDERS: PCP Internal Medicine; Visit Provider Surgery | DX: M86.9 Osteomyelitis, unspecified (principal); Z89.411 Acquired absence of right great toe | CPT/HCPCS: 99212 ==

== ENCOUNTER 2024-02-21 18:52 | Inpatient (IN) | payer MEDICARE, SELFPAY ==
--- NOTE | 2024-02-21 | ECG_ITS ---
Test Reason : fall Blood Pressure : / mmHG Vent. Rate : 099 BPM Atrial Rate : 099 BPM P-R Int : 198 ms QRS Dur : 122 ms QT Int : 332 ms P-R-T Axes : 021 -34 075 degrees QTc Int : 426 ms Normal sinus rhythm with sinus arrhythmia Left axis deviation Non-specific intra-ventricular conduction delay Abnormal ECG When compared with ECG of 27-AUG-2023 04:47, Vent. rate has increased BY 44 BPM Referred By: Generic ED Physician Electronically Signed By:Mukul Morley
--- NOTE | ~2024-02-21 | US_ITS ---
EXAMINATION: NONINVASIVE ASSESSMENT OF THE ARTERIES OF BOTH LOWER EXTREMITIES WITH PVR EXAM AND BILATERAL LOWER EXTREMITY DUPLEX Zahra De Leon MD CLINICAL INFORMATION: 2nd toe ulcer TECHNIQUE: Ankle pulse volume recordings, ankle pressure measurements and ankle brachial indices were obtained of the lower extremity arterial system bilaterally in addition to duplex Doppler techniques with wave form analysis and measurement of velocities in the common femoral, profunda femoral, superficial femoral, popliteal and tibial arteries. The study was performed only at rest. COMPARISON: None FINDINGS: a) AT REST: RIGHT LE. The right ankle-brachial index is: 1.13 * >0.97-1.25 = normal - no significant arterial disease * 0.75-0.96 = mild peripheral arterial disease * 0.5-0.74 = moderate peripheral arterial disease * <0.50 = severe peripheral arterial disease 2. Right ankle pressure: normal. 3. Right ankle PVR waveform: normal. 4. Right direct duplex Doppler findings: Common femoral artery: 139 cm/s, Multiphasic Profunda femoris artery: 54 cm/s, Multiphasic Superficial femoral artery (proximal): 106 cm/s, Multiphasic Superficial femoral artery (mid): 120 cm/s, Multiphasic Superficial femoral artery (distal): 136 cm/s, Multiphasic Proximal Popliteal artery: 83 cm/s, Multiphasic Mid posterior tibial artery: 147 cm/s, Multiphasic LEFT LE. The left ankle-brachial index is: 1.49 * >0.97-1.25 = normal - no significant arterial disease * 0.75-0.96 = mild peripheral arterial disease * 0.5-0.74 = moderate peripheral arterial disease * <0.50 = severe peripheral arterial disease 2. Left ankle pressure: normal. 3. Left ankle PVR waveform: normal. 4. Left direct duplex Doppler findings: Common femoral artery: 94 cm/s, Multiphasic Profunda femoris artery: 57 cm/s, Multiphasic Superficial femoral artery (proximal): 91 cm/s, Multiphasic Superficial femoral artery (mid): 64 cm/s, Multiphasic Superficial femoral artery (distal): 130 cm/s, Multiphasic Proximal Popliteal artery: 48 cm/s, Multiphasic Mid posterior tibial artery: 71 cm/s, Multiphasic US/US arterial duplex BI w/ MICHAEL IMPRESSION: There is no evidence of any hemodynamically significant lower extremity arterial disease by pressure, waveform or duplex Doppler criteria at rest.
--- NOTE | ~2024-02-21 | XR_ITS ---
EXAMINATION: XR FOOT, RIGHT CLINICAL INFORMATION: Bone erosion. COMPARISON: 02/21/2024 TECHNIQUE: AP, lateral, and oblique views of the right foot. FINDINGS: Great toe is surgically absent at the level of the first metatarsal head. Cortical irregularity at the great toe metatarsal may be due to healing of the previously seen osteomyelitis, though residual osteoma myelitis is possible. Soft tissues are swollen, particularly at the second toe. Osteopenia at the second toe distal phalanx is suggestive of superimposed osteomyelitis. XR/XR foot RT 2V IMPRESSION: 1. Radiographic findings most concerning for osteomyelitis of the second toe distal phalanx 2. Cortical irregularity at the great toe metatarsal may be due to healing of the previously seen osteomyelitis. Residual osteomyelitis remains possible.
--- NOTE | ~2024-02-21 | CT_ITS ---
EXAM: CT scan of the head and cervical spine. INDICATION: Reason for Exam fall -collared TECHNIQUE: A noncontrast CT scan was performed from the skull base to the vertex. A noncontrast CT scan of the cervical spine was performed from the base of the skull through T1 at 2.5 mm and 1.25 mm collimation. Coronal and sagittal reformats were obtained at the acquisition workstation. This CT examination was performed using dose optimization techniques as appropriate, variously including the following: *Automated exposure control *Adjustment of mA and/or kV according to patient size (this includes techniques or standardized protocols for targeted exams where dose is matched to indication/reason for exam; i.e. extremities or head) *Use of iterative reconstruction technique DLP: 610 and 357 mGy-cm COMPARISON: None FINDINGS: Head: There is no evidence of acute intracranial hemorrhage or territorial infarction. Zamudio-white matter differentiation is preserved. No abnormal mass effect or midline shift. No extra-axial fluid collections. No abnormal attenuation is demonstrated within the brain parenchyma. Scattered periventricular and deep white matter hypodensities consistent with microangiopathy. The ventricles and sulcal spaces are proportional without hydrocephalus. Proportional prominence of the ventricles and sulcal spaces. No acute osseous or soft tissue abnormalities. The mastoid air cells and visualized portions of the paranasal sinuses are well aerated. Cervical Spine: The atlantooccipital and atlantoaxial articulations remain well aligned. Straightening of the normal cervical lordosis. Otherwise, there is anatomic alignment of the vertebral bodies and posterior elements. No evidence of acute fracture or subluxation. Advanced degenerative disc disease with marked disc space narrowing from C2-C3 to C7-T1. Minimal degenerative retrolisthesis 1 to 2 mm C2-C3. Posterior elements appear intact. There is no prevertebral soft tissue swelling. The thyroid gland and remaining cervical soft tissues are normal in appearance. The lung apices demonstrate no abnormalities. CT/CT cervical spine wo IV con IMPRESSION: No acute intracranial pathology. No acute fracture subluxation cervical spine.
[2024-02-21 19:24] VITALS: BP 130/78; PULSE 108; O2SAT 98; BMI 26.7
[2024-02-21 19:41] VITALS: BP 136/57; PULSE 105; RESP 16; TEMP 37.7; O2SAT 98
[2024-02-21 19:53] LABS: MANUAL DIFF FLAG NO
[2024-02-21 19:56] LABS: Basophils Percent Auto 0.1 % (0-2); Eosinophils Percent Auto 0.1 % (0-4); Hematocrit 33.9 % (42.0-52.0); Hemoglobin 11.5 g/dl (14.0-18.0); Imm Gran Abs Auto 0.08 X10*3/uL (0.00-0.03); Imm Gran Pct Auto 0.6 % (0.0-0.4); Lymphocytes Absolute Auto 0.5 X10*3/uL (1.2-4.9); Lymphocytes Percent Auto 3.4 % (20-40); Mean Corpuscular HGB Conc 33.9 g/dl (31.0-36.0); Mean Corpuscular Hemoglobin 29.1 pg (27.0-33.0); Mean Corpuscular Volume 85.8 fL (80.0-98.0); Mean Platelet Volume 9.2 fL (9.4-12.4); Monocytes Absolute Auto 1.2 X10*3/uL (0.1-1.2); Monocytes Percent Auto 8.7 % (2-11); Neutrophils Absolute Auto 11.8 x10*3/uL (2.0-8.3); Neutrophils Percent Auto 87.1 % (45-73); Platelet Count 229 X10*3/uL (160-400); Red Blood Count 3.95 X10*6/uL (4.60-5.80); Red Cell Distribution Width 14.3 % (11.0-16.0); White Blood Count 13.6 X10*3/uL (4.8-10.8)
--- NOTE | 2024-02-21 20:01 | PC.NURSE ---
called family with no success
[2024-02-21 20:13] LABS: Alanine Aminotransferase 12 U/L (0-40); Albumin Level 3.3 g/dL (3.5-5.0); Alkaline Phosphatase 75 U/L (39-117); Anion Gap 13 (12-20); Aspartate Amino Transferase 16 U/L (5-37); Bilirubin Total 0.5 mg/dL (0.0-1.0); Blood Urea Nitrogen 30 mg/dL (9-16); Calcium 8.7 mg/dL (8.4-10.2); Carbon Dioxide 22 mmol/L (22-29); Chloride 105 mmol/L (96-108); Creatinine Clr Calc Pharmacy 48.9; Estimated Glomerular Filt Rate > 60; Glucose Random 194 mg/dL (60-115); Potassium 3.9 mmol/L (3.3-5.1); Sodium 136 mmol/L (135-145); Total Protein 6.9 g/dL (6.5-8.0)
[2024-02-21 20:20] LABS: Troponin-I High Sensitivity 61.7 ng/L (<3.5-35.0)
--- NOTE | 2024-02-21 20:20 | ED.FALL ---
HPI - Fall General Chief Complaint: Fall Stated Complaint: fall from standing Time Seen by Provider: 02/21/24 20:17 Source: patient, family and EMS Mode of arrival: EMS Limitations: no limitations History of Present Illness HPI Narrative: Patient with peripheral vascular disease with osteomyelitis of the right foot status post metatarsal amputation followed by wound clinic been feeling weak for last 2 days tried to get up from the bed to the recliner lost balance and fell without significant injury later on patient went to the bathroom and felt very weak and fell down no fever at home nausea no vomiting patient usually ambulates at home with walker no dizziness no chest pain patient's was at home witnessed the fall Related Data Home Medications ?Medication ?Instructions ?Recorded ?Confirmed allopurinol 300 mg tablet 300 mg PO DAILY 05/08/23 02/22/24 finasteride 5 mg tablet 5 mg PO DAILY 05/08/23 02/22/24 levothyroxine 75 mcg capsule 75 mcg PO DAILY@0600 05/08/23 02/22/24 tamsulosin 0.4 mg capsule 0.4 mg PO DAILY 05/08/23 02/22/24 metoprolol tartrate 25 mg tablet 25 mg PO BID 08/26/23 02/22/24 hydrochlorothiazide 25 mg tablet 25 mg PO DAILY 02/22/24 02/22/24 simvastatin 20 mg tablet 20 mg PO BEDTIME 02/22/24 02/22/24 Allergies Allergy/AdvReac Type Severity Reaction Status Date / Time No Known Allergies Allergy Verified 02/21/24 19:28 Review of Systems Review of Systems: Yes all other systems are reviewed and are negative [facility] Past Medical History Medical History Open wound Hypothyroidism BPH (benign prostatic hyperplasia) CAD (coronary artery disease) Gout HTN (hypertension) Peripheral vascular disease Surgical History Hx of surgical procedure (~08/28/23) S/P CABG (coronary artery bypass graft) Osteomyelitis Social History Social History Household Members: Spouse Housing: House Do you presently have visiting nurse or other home services: Yes Patient Tobacco Use Status: Former Tobacco user Tobacco use type: Cigarette Use of substances other than those prescribed or required for medical reasons: No Have you been hit, kicked, punched, or otherwise hurt by someone within the past year? If so, by whom?: No Do you feel safe in your current relationship?: Yes Is there a partner from a previous relationship who is making you feel unsafe now?: No Are you made to feel afraid or neglected: No [facility] Practices: bahai Advance Directives: No Advance Directives Information Provided: No Advance Directives Date on File: 06/02/23 Do you have a plan to hurt others: No Plan Recently lost weight without trying: No Nutrition Risks: No Nutritional Risk service: No Physical Exam Vital Signs: Vital Signs: Last Vital Signs Temp 97.3 F 02/22/24 15:30 Pulse 67 02/22/24 15:30 Resp 14 02/22/24 15:30 BP 118/57 L 02/22/24 15:30 Pulse Ox 97 02/22/24 15:30 O2 Del Method Room Air 02/22/24 15:30 BMI result Body Mass Index 26.7 Appearance: Alert. Oriented X2-3. No acute distress. Febrile temperature 100.4 degrees Eyes: PERRLA, No Nystagmus ENT: Pharynx normal. Oral Mucosa moist Neck: Normal inspection. Neck supple. CVS: Normal heart rate and rhythm. Pulses normal. Respiratory: No respiratory distress. Equal air entry bilateral, no wheezing/rales/rhonchi Abdomen: Soft and nontender. Bowel sounds are present, no mass palpable, no CVA tenderness Skin: Skin warm and dry. Normal skin color. Normal skin turgor. Extremities: No lower extremity edema. No calf tenderness Neuro: Oriented X 2-3. No motor deficit. No sensory deficit.No cerebellar signs , cranial nerves II-XII intact Medications Administered Generic Name Dose Route Start Last Admin Trade Name Freq PRN Reason Stop Dose Admin Enoxaparin Sodium 40 mg 02/21/24 21:00 02/21/24 21:36 Enoxaparin Sodium 40 Mg/0.4 Ml Syringe SUBCUT 40 mg Q24H DEZ Administration Piperacillin Sod/Tazobactam 100 mls @ 200 mls/hr 02/22/24 03:00 02/22/24 15:37 Sod 4.5 gm/ Sodium Chloride IV Infused Q6H DEZ Infusion Insulin Human Lispro 0 unit 02/22/24 16:30 02/22/24 18:09 Insulin Lispro 100 Unit/Ml 3 Ml Vial SUBCUT Not Given QIDACHS [facility] Protocol Sodium Chloride 3 ml 02/22/24 00:00 02/22/24 15:04 0.9 % Sodium Chloride Flush 3 Ml Syringe IVFLUSH 3 ml QSHIFT [facility] Administration Discontinued Medications Generic Name Dose Route Start Last Admin Trade Name Oleg PRN Reason Stop Dose Admin Acetaminophen 650 mg 02/21/24 20:49 02/21/24 21:04 Acetaminophen 325 Mg Tablet PO 02/21/24 20:50 650 mg ONCE ONE Administration Sodium Chloride 1,000 mls @ 999 mls/hr 02/21/24 20:46 02/21/24 22:12 Ns IV 02/21/24 21:46 Infused .Q1H1M ONE Infusion Piperacillin Sod/Tazobactam 50 mls @ 100 mls/hr 02/21/24 20:46 02/21/24 21:38 Sod 3.375 gm/ Sodium Chloride IV 02/21/24 21:15 Infused ONCE ONE Infusion Vancomycin HCl 2,000 mg in 500 mls @ 250 mls/hr 02/21/24 20:52 02/22/24 00:02 Vancomycin/Ns IV 02/21/24 22:51 Infused ONCE ONE Infusion Piperacillin Sod/Tazobactam 100 mls @ 200 mls/hr 02/21/24 03:00 02/21/24 22:49 Sod 4.5 gm/ Sodium Chloride IV Not Given Q6H [facility] Medical Decision Making Medical Decision Making [facility] Narrative: Patient with infected right great toe with monitor erosion likely osteomyelitis as the cause of weakness started on vanco and Zosyn admit for further evaluation possible amputation Differential Diagnosis Differential Diagnoses: The differential diagnosis associated with the presentation includes Admission/Observation Consideration of admission/observation: Escalation of care including admission/observation considered Consult Healthcare Provider Management of the patient was discussed with: Hospitalist Lab Data [facility] Lab Attestation statement: I reviewed the patient's lab results. 02/22/24 05:10 02/22/24 05:10 Labs: Lab Results 02/21/24 02/21/24 Range/Units 19:47 21:03 WBC 13.6 H (4.8-10.8) X10*3/uL RBC 3.95 L (4.60-5.80) X10*6/uL Hgb 11.5 L (14.0-18.0) g/dl Hct 33.9 L (42.0-52.0) % MCV 85.8 (80.0-98.0) fL MCH 29.1 (27.0-33.0) pg MCHC 33.9 (31.0-36.0) g/dl RDW 14.3 (11.0-16.0) % Plt Count 229 D (160-400) X10*3/uL MPV 9.2 L (9.4-12.4) fL Immature Gran % (Auto) 0.6 H (0.0-0.4) % Neut % (Auto) 87.1 H (45-73) % Lymph % (Auto) 3.4 L (20-40) % Sevier % (Auto) 8.7 (2-11) % Eos % (Auto) 0.1 (0-4) % Baso % (Auto) 0.1 (0-2) % Lymph # (Auto) 0.5 L (1.2-4.9) X10*3/uL [place]vier # (Auto) 1.2 (0.1-1.2) X10*3/uL Eos # (Auto) 0.0 (0.0-0.4) X10*3/uL Baso # (Auto) 0.0 (0.0-0.2) X10*3/uL Abs Immat Gran (auto) 0.08 H (0.00-0.03) X10*3/uL Absolute Neuts (auto) 11.8 H (2.0-8.3) x10*3/uL Absolute Nucleated RBC 0.000 (0.0-0.012) X10*3/uL Nucleated RBC % (auto) 0.0 (0.0-0.2) /100WBC ESR 67 H (0-15) MM/HR Sodium 136 (135-145) mmol/L Potassium 3.9 (3.3-5.1) mmol/L Chloride 105 (96-108) mmol/L Carbon Dioxide 22 (22-29) mmol/L Anion Gap 13 (12-20) BUN 30 H (9-16) mg/dL Creatinine 1.01 (0.5-1.4) mg/dL Estim Creat Clear Calc 48.9 Estimated GFR > 60 Random Glucose 194 H (60-115) mg/dL Lactic Acid 0.8 (0.5-2.0) mmol/L Calcium 8.7 D (8.4-10.2) mg/dL Total Bilirubin 0.5 (0.0-1.0) mg/dL AST 16 (5-37) U/L ALT 12 (0-40) U/L Alkaline Phosphatase 75 (39-117) U/L Troponin I High Sens 61.7 H (<3.5-35.0) ng/L C-Reactive Protein 16.34 H (< or = 0.50) mg/dL Total Protein 6.9 (6.5-8.0) g/dL Albumin 3.3 L (3.5-5.0) g/dL Discharge Plan Discharge Clinical Impression: Osteomyelitis, Weakness Patient Disposition: Admitted As Inpatient Interventions: Admission Worksheet (ED) Last Done: 02/22/24 07:34 Discharge Date/Time: 02/22/24 08:34
--- NOTE | 2024-02-21 21:02 | P.HPHOSP_ITS ---
History of Present Illness Date of Service: 02/21/24 <LARRY Philippe - Last Filed: 02/21/24 22:55> Attending physician on admission: Cholo Goodson <LARRY Philippe - Last Filed: 02/21/24 22:55> Chief Complaint: Fall, weakness <LARRY Philippe - Last Filed: 02/21/24 22:55> Pt is an 88-year-old male with a PMH significant for?CAD s/p triple bypass, HTN, HLD, BPH, hypothyroidism, gout, and hx of osteomyelitis of 1st digit on right foot s/p amputation on 08/28/2023 who presents to the ED for evaluation?of fall at home. Patient reports he was in his normal state of health yesterday and when he awoke this morning, but earlier this afternoon when he went to get up from his recliner his ?legs gave out and patient fell to the floor. Denies any prodrome of lightheadedness or dizziness. No head strike. Denies loss of consciousness. Family was in the room next door who heard him calling for help. Patient attempted to use his walker to stand up on his own but lactose strength to do so. Family was able to place him on his scooter and wheel him into the bathroom where he again had difficulty standing after using the toilet and slid to the floor. Patient denies any trauma from fall. No headache. Denies neck, arm, shoulder, or hip pain. No chest pain/pressure, palpitations. No shortness a breath. Denies fever, chills, nausea, vomiting, abdominal pain. Patient's only presenting complaint is of minor right foot pain at amputation site. Patient has been experiencing persistent drainage from amputation site and had MRI of right foot which showed evidence of sinus tract extending from 1st metatarsal ostomy where there is evidence of osteomyelitis extending to the metatarsal base. Also found evidence concerning for early osteomyelitis of 2nd distal phalanx. Saw Dr. Springer for follow-up on 01/25/2024 were reported drainage had improved significantly since MRI and patient wished wait to see if clinical improvement continued. Since last visit, however, patient's reports that 2nd digit on right foot has worsened significantly with foul-smelling and purulent drainage. In the ED pt with low-grade fever of 100.4, tachycardic up to 105, tachypneic up to 21, and soft BP as low as 125/54. Labs were significant for leukocytosis of 13.6, stable normocytic anemia of 11.5/33.9, and troponin 61.7. No significant electrolyte abnormalities. Renal and hepatic function baseline. X-ray of right foot, CT of head, and CT of cervical spine all pending. EKG demonstrated sinus rhythm with sinus arrhythmia and PVCs, but no evidence of significant ST elevations or depressions. Pt was treated with IVF, acetaminophen, Zosyn, and vanc. Pt will be admitted to the hospital for treatment and further evaluation left foot osteomyelitis from non diabetic chronic foot ulcer with sepsis. < LARRY Philippe - Last Filed: 02/21/24 22:55> Review of Systems 2 Review of Systems: Fall at home Generalized weakness Foul-smelling and purulent drainage from chronic right foot wound Right foot pain Denies fever, chills, nausea, vomiting, abdominal pain No chest pain/pressure, palpitations Denies shortness of breath <LARRY Philippe - Last Filed: 02/21/24 22:55> [facility] Medical History: Medical History Open wound Hypothyroidism BPH (benign prostatic hyperplasia) CAD (coronary artery disease) Gout HTN (hypertension) Peripheral vascular disease <LARRY Philippe - Last Filed: 02/21/24 22:55> Surgical History: Surgical History Hx of surgical procedure (~08/28/23) S/P CABG (coronary artery bypass graft) Osteomyelitis <LARRY Philippe - Last Filed: 02/21/24 22:55> Social History: Social History Household Members: Spouse Housing: House Do you presently have visiting nurse or other home services: No Patient Tobacco Use Status: Former Tobacco user Tobacco use type: Cigarette Advance Directives: No Advance Directives Information Provided: No Advance Directives Date on File: 06/02/23 Do you have a plan to hurt others: No Plan Nutrition Risks: No Nutritional Risk service: Yes <LARRY Philippe - Last Filed: 02/21/24 22:55> Meds Allergies/Adverse reactions: Allergies Allergy/AdvReac Type Severity Reaction Status Date / Time No Known Allergies Allergy Verified 02/21/24 19:28 <LARRY Philippe - Last Filed: 02/21/24 22:55> Active Medications: Current Medications Acetaminophen (Acetaminophen 325 Mg Tablet) 650 mg PO Q6H PRN PRN Reason: Pain, Mild (Pain Scale 1-3) Enoxaparin Sodium (Enoxaparin Sodium 40 Mg/0.4 Ml Syringe) 40 mg SUBCUT Q24H [facility] Sodium Chloride (Ns) 1,000 mls @ 999 mls/hr IV .Q1H1M ONE Stop: 02/21/24 21:46 Piperacillin Sod/Tazobactam (Sod 3.375 gm/ Sodium Chloride) 50 mls @ 100 mls/hr IV ONCE ONE Stop: 02/21/24 21:15 Vancomycin HCl (Vancomycin/Ns) 2,000 mg in 500 mls @ 250 mls/hr IV ONCE ONE Stop: 02/21/24 22:51 Melatonin (Melatonin 3 Mg Tablet) 6 mg PO BEDTIME PRN PRN Reason: Insomnia Ondansetron HCl (Ondansetron Hcl 4 Mg/2 Ml Vial) 4 mg IVPUSH Q8H PRN PRN Reason: Nausea and Vomiting Pharmacy Consult (Consult Rx Vancomycin Dosing) 1 each MISCELLANE DAILY PRN PRN Reason: Consult order Sodium Chloride (0.9 % Sodium Chloride Flush 3 Ml Syringe) 3 ml IVFLUSH QSHIFT [facility] <LARRY Philippe - Last Filed: 02/21/24 22:55> Home medications: Home Medications ?Medication ?Instructions ?Recorded ?Confirmed ?Last Taken ?Type allopurinol 300 mg tablet 300 mg PO DAILY 05/08/23 12/15/23 Unknown History atorvastatin 40 mg tablet 40 mg PO DAILY 05/08/23 12/15/23 Unknown History finasteride 5 mg tablet 5 mg PO DAILY 05/08/23 12/15/23 Unknown History levothyroxine 75 mcg capsule 75 mcg PO DAILY 05/08/23 12/15/23 Unknown History lisinopril 20 mg tablet 20 mg PO DAILY 05/08/23 12/15/23 Unknown History tamsulosin 0.4 mg capsule 0.4 mg PO DAILY 05/08/23 12/15/23 Unknown History metoprolol tartrate 25 mg tablet 25 mg PO BID 08/26/23 12/15/23 Unknown History <LARRY Philippe - Last Filed: 02/21/24 22:55> Physical Exam 2 Vital Signs and Narrative: Vital Signs: Last Vital Signs Temp 99.8 F 02/21/24 19:41 Pulse 105 H 02/21/24 19:41 Resp 16 02/21/24 19:41 BP 136/57 L 02/21/24 19:41 Pulse Ox 98 02/21/24 19:41 O2 Del Method Room Air 02/21/24 19:41 BMI result Body Mass Index 26.7 <LARRY Philippe - Last Filed: 02/21/24 22:55> Constitutional: Alert, in no acute distress. Mental Status: Oriented to person, place and time. Eyes: Pupils are equal, round, and reactive to light. Ear, Nose, and Throat: Oropharynx clear, mucous membranes moist. Ears and nose without deformities. Trachea midline. Respiratory: Clear to auscultation bilaterally. No wheezing, rales, or rhonchi. Cardiovascular: S1, S2 regular. No murmurs, rubs, or gallops. Gastrointestinal: Abdomen soft, non-tender, non-distended. Normal bowel sounds. Neurologic: Cranial nerves II-XII are grossly intact bilaterally. No focal neurological deficits. Moves all extremities spontaneously. Skin: Warm, dry. Extremities: Minor swelling, erythema, and warmth of lower right extremity from foot to knee. Swelling, erythema, macerated flash, and open wound at end of 2nd digit of right foot. Minimal drainage currently. As pictured below. Psychiatric: Normal mood and affect. <LARRY Philippe - Last Filed: 02/21/24 22:55> Results Labs CBC and Chem 7: 02/21/24 19:47 02/21/24 19:47 <LARRY Philippe - Last Filed: 02/21/24 22:55> Labs: Laboratory Results - last 24 hr 02/21/24 19:47 MCV 85.8 MCH 29.1 MCHC 33.9 RDW 14.3 Plt Count 229 D MPV 9.2 L Immature Gran % (Auto) 0.6 H Neut % (Auto) 87.1 H Lymph % (Auto) 3.4 L [place] % (Auto) 8.7 Eos % (Auto) 0.1 Baso % (Auto) 0.1 Lymph # (Auto) 0.5 L [place] # (Auto) 1.2 Eos # (Auto) 0.0 Baso # (Auto) 0.0 Abs Immat Gran (auto) 0.08 H Absolute Neuts (auto) 11.8 H Absolute Nucleated RBC 0.000 Nucleated RBC % (auto) 0.0 Anion Gap 13 Estim Creat Clear Calc 48.9 Estimated GFR > 60 Random Glucose 194 H Calcium 8.7 D Total Bilirubin 0.5 AST 16 ALT 12 Alkaline Phosphatase 75 Troponin I High Sens 61.7 H Total Protein 6.9 Albumin 3.3 L <LARRY Philippe - Last Filed: 02/21/24 22:55> Assessment and Plan (1) Osteomyelitis of second toe of left foot: Status: Acute <LARRY Philippe - Last Filed: 02/21/24 22:55> Pt is an 88-year-old male with a PMH significant for?CAD s/p triple bypass, HTN, HLD, BPH, hypothyroidism, gout, and hx of osteomyelitis of 1st digit on right foot s/p amputation on 08/28/2023 who presents to the ED for evaluation?of fall at home. Osteomyelitis of 2nd digit of right foot with sepsis MRI on 01/06/2024 showing osteomyelitis of 1st metatarsal and likely early osteomyelitis 2nd distal phalanx Previous amputation of right great toe on 08/28/2023 Patient previously completed 40-day course of IV ertapenem and additional 30-day course of doxy in May-Aug 2023 Pt meets sepsis criteria: Tachycardia, tachypnea, and leukocytosis; lactic acid WNL at 0.8 Patient given IVF and started on broad-spectrum antibiotics in the ED Will treat with vanco and Zosyn, started 02/21/2024 General surgery consult Infectious disease consult Generalized weakness and fall at home In the setting of right toe osteomyelitis with sepsis Treat as above PT consult CAD/HLD Continue statin HTN Continue home antihypertensives Hypothyroidism Continue levothyroxine BPH Continue tamsulosin Hx of gout Continue allopurinol Full Code Attending:?Dr. Goodson DVT Prophylaxis: Lovenox Pt will require a hospitalization of at least two nights for treatment of?osteomyelitis of 2nd digit of right foot with sepsis. Given that patient has failed multiple outpatient treatments for his osteomyelitis dating back to last year, he will require hospitalization for administration of IV antibiotics, close monitoring of vitals, and specialist consultation with ID and General surgery. <LARRY Philippe - Last Filed: 02/21/24 22:55> Pt is an 88-year-old male with a PMH significant for?CAD s/p triple bypass, HTN, HLD, BPH, hypothyroidism, gout, and hx of osteomyelitis of 1st digit on right foot s/p amputation on 08/28/2023 who presents to the ED for evaluation?of fall at home. Osteomyelitis of 2nd digit of right foot with sepsis MRI on 01/06/2024 showing osteomyelitis of 1st metatarsal and likely early osteomyelitis 2nd distal phalanx Previous amputation of right great toe on 08/28/2023 Patient previously completed 40-day course of IV ertapenem and additional 30-day course of doxy in May-Aug 2023 Pt meets sepsis criteria: Tachycardia, tachypnea, and leukocytosis; lactic acid WNL at 0.8 Patient given IVF and started on broad-spectrum antibiotics in the ED Will treat with vanco and Zosyn, started 02/21/2024 General surgery consult Infectious disease consult Generalized weakness and fall at home In the setting of right toe osteomyelitis with sepsis Treat as above CAD/HLD Continue statin HTN Continue home antihypertensives Hypothyroidism Continue levothyroxine BPH Continue tamsulosin Hx of gout Continue allopurinol Full Code Attending:?Dr. Goodson DVT Prophylaxis: Lovenox Pt will require a hospitalization of at least two nights for treatment of?osteomyelitis of 2nd digit of right foot with sepsis. Given that patient has failed multiple outpatient treatments for his osteomyelitis dating back to last year, he will require hospitalization for administration of IV antibiotics, close monitoring of vitals, and specialist consultation with ID and General surgery. <Cholo Goodson MD - Last Filed: 02/21/24 23:20> Quality Stroke Does the patient have a stroke diagnosis?: No <LARRY Philippe - Last Filed: 02/21/24 22:55> VTE Prior VTE?: No <LARRY Philippe - Last Filed: 02/21/24 22:55> VTE Risk Level:: Medical - moderate - high <LARRY Philippe - Last Filed: 02/21/24 22:55> VTE Device Contraindication: Treatment Not Indicated <LARRY Philippe - Last Filed: 02/21/24 22:55> VTE Drug Contraindication: N/A - Med Ordered <LARRY Philippe - Last Filed: 02/21/24 22:55>
[2024-02-21 21:03] VITALS: BP 125/54; PULSE 93; RESP 21; TEMP 38; O2SAT 96
[2024-02-21] MEDS: Acetaminophen 325 MG TABLET 650 MG PO (21:04)
[2024-02-21] MEDS: 0.9 % Sodium Chloride 1,000 ML 999 ML IV (21:04)
[2024-02-21] MEDS: Piperacillin Sodium/Tazobactam 3.375 GM in 0.9 % Sodium Chloride 50 ML IV (21:05)
[2024-02-21 21:18] LABS: Lactic Acid 0.8 mmol/L (0.5-2.0)
[2024-02-21] MEDS: vancomycin/NS 2,000 MG/500 ML PLAST..BAG 250 MG IV (21:33)
[2024-02-21] MEDS: Enoxaparin Sodium 40 MG/0.4 ML SYRINGE SUBCUT (21:36)
[2024-02-21 21:38] VITALS: PULSE 88; RESP 21; TEMP 36.7
[2024-02-21 22:45] LABS: C Reactive Protein 16.34 mg/dL (< or = 0.50)
[2024-02-21 22:58] VITALS: BP 109/50; PULSE 72; RESP 19; TEMP 36.7; O2SAT 97
[2024-02-21 23:09] LABS: Appearance Urine Clear; Color Urine Yellow; Glucose Urine UA Negative (Negative); Leukocyte Esterase Urine Negative (Negative); Nitrite Urine Negative (Negative); PH 5.5 (5.0-9.0); Specific Gravity - Urine 1.025 (1.005-1.025); Urine Blood Negative (Negative); Urine Ketones Negative (Negative); Urine Protein Trace mg/dL (Neg-Trace)
[2024-02-21 23:25] LABS: Erythrocyte Sedimentation Rate 67 MM/HR (0-15)
[2024-02-21 23:40] VITALS: BP 124/58; PULSE 73; RESP 16; TEMP 36.7; O2SAT 97
--- NOTE | 2024-02-21 23:41 | MHC.EDTECH ---
This tech took over care of patient at 2300,hourly rounds and vitals completed,belongings list completed and copy placed in chart.
--- NOTE | 2024-02-22 | ECG_ITS ---
Test Reason : Dr Order Blood Pressure : / mmHG Vent. Rate : 072 BPM Atrial Rate : 072 BPM P-R Int : 194 ms QRS Dur : 122 ms QT Int : 408 ms P-R-T Axes : 004 -36 052 degrees QTc Int : 446 ms Normal sinus rhythm Left axis deviation Non-specific intra-ventricular conduction delay Abnormal ECG When compared with ECG of 21-FEB-2024 19:53, No significant change was found Referred By: Analia Velazquez Electronically Signed By:DEEPAK CREWS
[2024-02-22 01:18] VITALS: BP 126/58; PULSE 65; RESP 16; TEMP 36.6; O2SAT 100
--- NOTE | 2024-02-22 02:11 | MHC.EDTECH ---
Hourly rounds and vitals completed,patient urinated 300mls in urinal
[2024-02-22] MEDS: Piperacillin Sodium/Tazobactam 4.5 GM in 0.9 % Sodium Chloride 100 ML IV ×4 (03:13→19:57)
[2024-02-22 05:30] VITALS: BP 130/55; PULSE 78; RESP 16; TEMP 36.7; O2SAT 97
--- NOTE | 2024-02-22 05:31 | MHC.EDTECH ---
Hourly rounds and vitals completed,patient urinated 300MLS of yellow urine in the urinal,call potter in reach
[2024-02-22 05:47] LABS: MANUAL DIFF FLAG NO
[2024-02-22 05:50] LABS: Basophils Percent Auto 0.1 % (0-2); Eosinophils Percent Auto 0.1 % (0-4); Hematocrit 36.4 % (42.0-52.0); Hemoglobin 11.9 g/dl (14.0-18.0); Imm Gran Abs Auto 0.06 X10*3/uL (0.00-0.03); Imm Gran Pct Auto 0.4 % (0.0-0.4); Lymphocytes Absolute Auto 2.4 X10*3/uL (1.2-4.9); Lymphocytes Percent Auto 15.6 % (20-40); Mean Corpuscular HGB Conc 32.7 g/dl (31.0-36.0); Mean Corpuscular Hemoglobin 28.7 pg (27.0-33.0); Mean Corpuscular Volume 87.9 fL (80.0-98.0); Mean Platelet Volume 9.6 fL (9.4-12.4); Monocytes Absolute Auto 1.4 X10*3/uL (0.1-1.2); Monocytes Percent Auto 9.1 % (2-11); Neutrophils Absolute Auto 11.3 x10*3/uL (2.0-8.3); Neutrophils Percent Auto 74.7 % (45-73); Platelet Count 252 X10*3/uL (160-400); Red Blood Count 4.14 X10*6/uL (4.60-5.80); Red Cell Distribution Width 14.5 % (11.0-16.0); White Blood Count 15.1 X10*3/uL (4.8-10.8)
--- NOTE | 2024-02-22 05:57 | PC.NURSE ---
pt arrived in ED from home with witnessed fall due to weakness. Presented with temp of 100.4 ( currently afebrile). 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 Pt is being admitted for osteomylitits of 1st digit on R foot and will need to stay for IV antibiotic and surgical /infectious disease consult. 20 R AC. WBC 13 Trop 61.7 Lactic 0.8 Normally ambulatory for walker. PT consult
[2024-02-22 06:04] LABS: Anion Gap 15 (12-20); Blood Urea Nitrogen 22 mg/dL (9-16); Calcium 8.7 mg/dL (8.4-10.2); Carbon Dioxide 22 mmol/L (22-29); Chloride 106 mmol/L (96-108); Creatinine Clr Calc Pharmacy 56.7; Estimated Glomerular Filt Rate > 60; Glucose Random 125 mg/dL (60-115); Potassium 3.5 mmol/L (3.3-5.1); Sodium 139 mmol/L (135-145)
[2024-02-22] MEDS: 0.9 % Sodium Chloride Flush 3 ML SYRINGE IVFLUSH ×3 (07:57→19:57)
[2024-02-22 08:00] VITALS: BP 123/47; PULSE 74; RESP 18; TEMP 36.4; O2SAT 98
[2024-02-22 08:03] LABS: Estimated Average Glucose 148 mg/dL; Hemoglobin A1c % 6.8 % (<6.0)
[2024-02-22 08:37] LABS: Troponin-I High Sensitivity 146.9 ng/L (<3.5-35.0)
--- NOTE | 2024-02-22 08:37 | CA_ITS ---
Transthoracic Echocardiogram Patient (Last, First, Middle): Stephen Huffman, Gender: Male Date of : 1935 Age: 88 Procedure Date: 02/22/2024 Procedure Type: Transthoracic Echocardiogram Location: S3E Height: 172.72 cm Weight: 79.38 kg BSA: 1.93 m2 Heart Rate: 67 bpm BP: 133 / 61 mmHg [employer] Appellate Law Clerk: SB Referring MD: Analia Velazquez MD Symptoms: elev trn Study Quality: Adequate ECG Rhythm: Sinus Conclusions: - Normal left ventricular cavity size. There is mildly increased left ventricular wall thickness. The left ventricular systolic function is low normal. The visually estimated ejection fraction is between 50-55%. - Diastolic function is normal for age. - Mildly increased right ventricular cavity size. There is mildly decreased right ventricular systolic function. - There is mild mitral valve regurgitation. - There is mild dilatation of the ascending aorta measuring 3.80 cm. Findings Left Ventricle Normal left ventricular cavity size. There is mildly increased left ventricular wall thickness. The left ventricular systolic function is low normal. The visually estimated ejection fraction is between 50-55%. There is no evidence of regional wall motion abnormalities. There is paradoxical septal motion consistent with post-operative status. Diastolic function is normal for age. Right Ventricle Mildly increased right ventricular cavity size. There is mildly decreased right ventricular systolic function. Atria The left atrium is normal in size. The right atrium is moderately dilated. Aortic Valve There is a normal trileaflet aortic valve. There is mild calcification of the aortic valve. There is no aortic valve stenosis. There is trace (trivial) aortic valve regurgitation. Mitral Valve Normal mitral valve structure and function. There is mild mitral valve regurgitation. There is no mitral valve stenosis. Pulmonic Valve The pulmonic valve is likely normal. Tricuspid Valve Normal tricuspid valve structure. There is no tricuspid valve regurgitation. Normal right atrial pressure. There is no evidence of pulmonary hypertension. Great Vessels There is mild dilatation of the ascending aorta measuring 3.80 cm. Venous The inferior vena cava is normal in size and collapses greater than 50% with inspiration. Pericardium/Pleural There is no evidence of pericardial effusion. Prior Study Comparison No prior study available for comparison. Measurements 2D Linear Measurements IVSd: 0.92 0.6-0.9/0.6-1.0 cm LVIDd: 4.95 3.9-5.3/4.2-5.9 cm LVIDd Index: 2.56 2.4-3.2/2.2-3.1 cm/m2 LVIDs: 3.47 2.0-3.6 cm LVPWd: 0.65 0.7-1.1 cm LA Diam: 4.00 2.7-3.8/3.0-4.0 cm LAIDs Index: 2.07 1.5-2.3 cm/m2 LV Mass: 161.98 67-162/88-224 g LV Mass Index: 83.93 43-95/49-115 g/m2 LVOT Diam: 2.00 3.0+(-)1.3 cm 2D Systolic Function EF 4C: 47.00 >55% EF 2C: 57.10 >55% EF BiP: 50.80 >55% Mitral Valve MV Pk E: 0.51 MV PK A: 0.52 MV Decel Time: 249.00 E/A: 1.00 E'Lateral: 5.55 E'Medial: 6.20 E/E' Med: 8.20 E/E' Lat: 9.10 PHT: 73.00 MVA PHT: 3.01 Decel [place]: 2.03 Aortic Valve AoV Pk Hayes: 1.35 AoV Pk Grad: 7.00 [place]: 2.31 LVOT LVOT Pk Hayes: 0.96 LVOT Mn Hayes: 0.68 LVOT VTI: 0.21 LVOT Pk Grad: 4.00 LVOT Mn Grad: 2.00 LVOT Diam: 2.00 LVOT Area: 3.14 Diastolic Function MV Pk E: 0.51 MV Pk A: 0.52 E/A: 1.00 E'Medial: 6.20 E/E' Med: 8.20 E' Laterial: 5.55 E/E' Lat: 9.10 Right Ventricle TAPSE (mm): 16.90 TVS' Hayes: 9.79 Tricuspid Valve TR Pk Hayes: 2.01 TR Pk Grad: 16.00 RA Press: 3.00 RVSP: 19.00 Great Vessels Aorta Sinus of Valsalva: 3.30 2.0-3.5 cm Ao Asc: 3.80 2.1-3.4 cm Pulmonary Valve PV Pk Hayes: 1.18 Peak PV Grad: 6.00 Updated in Other Vendor System with Status of Final Mukul Morley MD electronically signed on 02/22/2024 1:50:55 PM with status of Final
--- NOTE | 2024-02-22 08:42 | PC.NURSE ---
Patient alert and oriented,denies chest pain,denies SOB ,comfortable
[2024-02-22 09:05] VITALS: BP 133/61; PULSE 70; RESP 14; TEMP 36.1; O2SAT 96
--- NOTE | 2024-02-22 09:08 | PC.NURSE ---
.EKG done ,results sent to dr. Velazquez via [employer]
--- NOTE | 2024-02-22 10:02 | PM.CNGS ---
History of Present Illness Consult details Consult date: 02/22/24 Narrative: 88-year-old male admitted because of a fall. He has multiple medical problems including hypertension, BPH, gout, thyroid disease and has had osteomyelitis of the 1st toe in the past. He had undergone amputation for this last August,. He had a poorly healing wound on this area after amputation but this eventually healed up He now is noted to have an ulcer on the 2nd toe which has been draining scanty fluid. His x-rays on admission shows that this has osteomyelitis of the distal phalanx. The amputation site of the big toe actually is already well healed. Review of Systems Constitutional: Constitutional: Denies chills and Denies fever(s) Cardiovascular: Cardiovascular: Denies chest pain, Denies dyspnea and Denies dyspnea on exertion Respiratory: Respiratory: Denies cough, Denies dyspnea and Denies dyspnea on exertion Gastrointestinal: Gastrointestinal: Denies hematochezia and Denies change in bowel habits Genitourinary: Genitourinary: Denies hematuria and Denies difficulty urinating Musculoskeletal: Musculoskeletal: Reports back pain, Reports arthralgias and Reports limited range of motion Neurologic: Denies focal weakness and Denies convulsions Psychiatric: Psychiatric: Denies depression and Denies mood swings PMFSH Past Medical History Medical History Open wound Hypothyroidism BPH (benign prostatic hyperplasia) CAD (coronary artery disease) Gout HTN (hypertension) Peripheral vascular disease Surgical History Surgical History Hx of surgical procedure (~08/28/23) S/P CABG (coronary artery bypass graft) Osteomyelitis Social History Social History Household Members: Spouse Housing: House Do you presently have visiting nurse or other home services: Yes Patient Tobacco Use Status: Former Tobacco user Tobacco use type: Cigarette Advance Directives Date on File: 06/02/23 service: No Meds Allergies Allergy/AdvReac Type Severity Reaction Status Date / Time No Known Allergies Allergy Verified 02/21/24 19:28 Active Medications: Current Medications Acetaminophen (Acetaminophen 325 Mg Tablet) 650 mg PO Q6H PRN PRN Reason: Pain, Mild (Pain Scale 1-3) Enoxaparin Sodium (Enoxaparin Sodium 40 Mg/0.4 Ml Syringe) 40 mg SUBCUT Q24H [facility] Last Admin: 02/21/24 21:36 Dose: 40 mg Piperacillin Sod/Tazobactam (Sod 4.5 gm/ Sodium Chloride) 100 mls @ 200 mls/hr IV Q6H [facility] Last Admin: 02/22/24 09:49 Dose: 200 mls/hr Melatonin (Melatonin 3 Mg Tablet) 6 mg PO BEDTIME PRN PRN Reason: Insomnia Ondansetron HCl (Ondansetron Hcl 4 Mg/2 Ml Vial) 4 mg IVPUSH Q8H PRN PRN Reason: Nausea and Vomiting Pharmacy Consult (Consult Rx Vancomycin Dosing) 1 each MISCELLANE DAILY PRN PRN Reason: Consult order Sodium Chloride (0.9 % Sodium Chloride Flush 3 Ml Syringe) 3 ml IVFLUSH QSHIFT [facility] Last Admin: 02/22/24 07:57 Dose: 3 ml Home Medications ?Medication ?Instructions ?Recorded ?Confirmed ?Last Taken ?Type allopurinol 300 mg tablet 300 mg PO DAILY 05/08/23 02/22/24 Unknown History finasteride 5 mg tablet 5 mg PO DAILY 05/08/23 02/22/24 Unknown History levothyroxine 75 mcg capsule 75 mcg PO DAILY@0600 05/08/23 02/22/24 Unknown History tamsulosin 0.4 mg capsule 0.4 mg PO DAILY 05/08/23 02/22/24 Unknown History metoprolol tartrate 25 mg tablet 25 mg PO BID 08/26/23 02/22/24 Unknown History hydrochlorothiazide 25 mg tablet 25 mg PO DAILY 02/22/24 02/22/24 Unknown History simvastatin 20 mg tablet 20 mg PO BEDTIME 02/22/24 02/22/24 Unknown History Physical Exam Vital Signs: Vital Signs: Last Vital Signs Temp 96.9 F 02/22/24 09:05 Pulse 70 02/22/24 09:05 Resp 14 02/22/24 09:05 BP 133/61 02/22/24 09:05 Pulse Ox 96 02/22/24 09:05 O2 Del Method Room Air 02/22/24 09:05 BMI result Body Mass Index 26.7 Const: General: comfortable and no acute distress Orientation/consciousness: patient oriented x3 Neck: Neck: Yes no lymphadenopathy Resp: Auscultation: clear to auscultation bilaterally Cardio: Rhythm: regular rhythm GI: Palpation (GI): Soft to palpation, nontender and no guarding Neuro: General: patient oriented x3 Extrem: Other: Ulcer on the distal phalanx of the 2nd toe on the right side, with significant edema and redness, some drainage; amputation site of the big toe is dry and well healed Results Labs 02/23/24 05:48 02/25/24 05:07 Labs: Abnormal lab results 02/21/24 02/22/24 02/22/24 Range/Units 19:47 05:10 07:46 WBC 13.6 H 15.1 H (4.8-10.8) X10*3/uL RBC 3.95 L 4.14 L (4.60-5.80) X10*6/uL Hgb 11.5 L 11.9 L (14.0-18.0) g/dl Hct 33.9 L 36.4 L (42.0-52.0) % MPV 9.2 L (9.4-12.4) fL Immature Gran % (Auto) 0.6 H (0.0-0.4) % Neut % (Auto) 87.1 H 74.7 H (45-73) % Lymph % (Auto) 3.4 L 15.6 L (20-40) % Lymph # (Auto) 0.5 L (1.2-4.9) X10*3/uL [place] # (Auto) 1.4 H (0.1-1.2) X10*3/uL Abs Immat Gran (auto) 0.08 H 0.06 H (0.00-0.03) X10*3/uL Absolute Neuts (auto) 11.8 H 11.3 H (2.0-8.3) x10*3/uL ESR 67 H (0-15) MM/HR BUN 30 H 22 H (9-16) mg/dL Random Glucose 194 H 125 H (60-115) mg/dL Hemoglobin A1c % 6.8 H (<6.0) % Troponin I High Sens 61.7 H 146.9 H* D (<3.5-35.0) ng/L C-Reactive Protein 16.34 H (< or = 0.50) mg/dL Albumin 3.3 L (3.5-5.0) g/dL Short CBC 02/21/24 02/22/24 Range/Units 19:47 05:10 WBC 13.6 H 15.1 H (4.8-10.8) X10*3/uL Hgb 11.5 L 11.9 L (14.0-18.0) g/dl Hct 33.9 L 36.4 L (42.0-52.0) % Plt Count 229 D 252 (160-400) X10*3/uL BMP 02/21/24 02/22/24 19:47 05:10 Sodium 136 139 Potassium 3.9 3.5 Chloride 105 106 Carbon Dioxide 22 22 BUN 30 H 22 H Creatinine 1.01 0.87 Calcium 8.7 D 8.7 Liver Function 02/21/24 Range/Units 19:47 Total Bilirubin 0.5 (0.0-1.0) mg/dL AST 16 (5-37) U/L ALT 12 (0-40) U/L Alkaline Phosphatase 75 (39-117) U/L Albumin 3.3 L (3.5-5.0) g/dL Urine 02/21/24 Range/Units 23:01 Urine Color Yellow Urine Appearance Clear Urine pH 5.5 (5.0-9.0) Ur Specific [place] 1.025 (1.005-1.025) Urine Protein Trace (Neg-Trace) mg/dL Urine Glucose (UA) Negative (Negative) mg/dL All other labs normal. Imaging Additional studies: Laboratory Results WBC 15.1 X10*3/uL (4.8-10.8) H 02/22/24 05:10 RBC 4.14 X10*6/uL (4.60-5.80) L 02/22/24 05:10 Hgb 11.9 g/dl (14.0-18.0) L 02/22/24 05:10 Hct 36.4 % (42.0-52.0) L 02/22/24 05:10 MCV 87.9 fL (80.0-98.0) 02/22/24 05:10 MCH 28.7 pg (27.0-33.0) 02/22/24 05:10 MCHC 32.7 g/dl (31.0-36.0) 02/22/24 05:10 RDW 14.5 % (11.0-16.0) 02/22/24 05:10 Plt Count 252 X10*3/uL (160-400) 02/22/24 05:10 MPV 9.6 fL (9.4-12.4) 02/22/24 05:10 Immature Gran % (Auto) 0.4 % (0.0-0.4) 02/22/24 05:10 Neut % (Auto) 74.7 % (45-73) H 02/22/24 05:10 Lymph % (Auto) 15.6 % (20-40) L 02/22/24 05:10 [place] % (Auto) 9.1 % (2-11) 02/22/24 05:10 Eos % (Auto) 0.1 % (0-4) 02/22/24 05:10 Baso % (Auto) 0.1 % (0-2) 02/22/24 05:10 Lymph # (Auto) 2.4 X10*3/uL (1.2-4.9) 02/22/24 05:10 [place] # (Auto) 1.4 X10*3/uL (0.1-1.2) H 02/22/24 05:10 Eos # (Auto) 0.0 X10*3/uL (0.0-0.4) 02/22/24 05:10 Baso # (Auto) 0.0 X10*3/uL (0.0-0.2) 02/22/24 05:10 Abs Immat Gran (auto) 0.06 X10*3/uL (0.00-0.03) H 02/22/24 05:10 Absolute Neuts (auto) 11.3 x10*3/uL (2.0-8.3) H 02/22/24 05:10 Absolute Nucleated RBC 0.000 X10*3/uL (0.0-0.012) 02/22/24 05:10 Nucleated RBC % (auto) 0.0 /100WBC (0.0-0.2) 02/22/24 05:10 ESR 67 MM/HR (0-15) H 02/21/24 19:47 Sodium 139 mmol/L (135-145) 02/22/24 05:10 Potassium 3.5 mmol/L (3.3-5.1) 02/22/24 05:10 Chloride 106 mmol/L (96-108) 02/22/24 05:10 Carbon Dioxide 22 mmol/L (22-29) 02/22/24 05:10 Anion Gap 15 (12-20) 02/22/24 05:10 BUN 22 mg/dL (9-16) H 02/22/24 05:10 Creatinine 0.87 mg/dL (0.5-1.4) 02/22/24 05:10 Estim Creat Clear Calc 56.7 02/22/24 05:10 Estimated GFR > 60 02/22/24 05:10 Random Glucose 125 mg/dL (60-115) H 02/22/24 05:10 Estimat Average Glucose 148 mg/dL 02/22/24 07:46 Hemoglobin A1c % 6.8 % (<6.0) H 02/22/24 07:46 Lactic Acid 0.8 mmol/L (0.5-2.0) 02/21/24 21:03 Calcium 8.7 mg/dL (8.4-10.2) 02/22/24 05:10 Total Bilirubin 0.5 mg/dL (0.0-1.0) 02/21/24 19:47 AST 16 U/L (5-37) 02/21/24 19:47 ALT 12 U/L (0-40) 02/21/24 19:47 Alkaline Phosphatase 75 U/L (39-117) 02/21/24 19:47 Troponin I High Sens 146.9 ng/L (<3.5-35.0) H* D 02/22/24 07:46 C-Reactive Protein 16.34 mg/dL (< or = 0.50) H 02/21/24 19:47 Total Protein 6.9 g/dL (6.5-8.0) 02/21/24 19:47 Albumin 3.3 g/dL (3.5-5.0) L 02/21/24 19:47 Urine Color Yellow 02/21/24 23:01 Urine Appearance Clear 02/21/24 23:01 Urine pH 5.5 (5.0-9.0) 02/21/24 23:01 Ur Specific [place] 1.025 (1.005-1.025) 02/21/24 23:01 Urine Protein Trace mg/dL (Neg-Trace) 02/21/24 23:01 Urine Glucose (UA) Negative mg/dL (Negative) 02/21/24 23:01 Urine Ketones Negative mg/dL (Negative) 02/21/24 23:01 Urine Blood Negative (Negative) 02/21/24 23:01 Urine Nitrite Negative (Negative) 02/21/24 23:01 Ur Leukocyte Esterase Negative (Negative) 02/21/24 23:[address] 02/21/24 20:45 IMPRESSION: No acute intracranial pathology. No acute fracture subluxation cervical spine. Head CT 02/21/24 20:45 IMPRESSION: No acute intracranial pathology. No acute fracture subluxation cervical spine. Foot X-Ray 02/21/24 20:55 IMPRESSION: 1. Radiographic findings most concerning for osteomyelitis of the second toe distal phalanx 2. Cortical irregularity at the great toe metatarsal may be due to healing of the previously seen osteomyelitis. Residual osteomyelitis remains possible. Assessment and Plan (1) Osteomyelitis of second toe of left foot: Status: Acute He has this draining ulcer 2nd toe on the right side along with some redness, and edema. He is x-ray does show osteomyelitis of the distal phalanx I had a long discussion with him about the option of proceeding with amputation of the 2nd toe. I explained the technique of this procedure. I reviewed the risks including but not limited to bleeding, infections and poor healing, as well as the benefits and alternatives. He states that he would like to hold off on amputation of the 2nd toe at this time. He says he would like to try nonoperative measures such as antibiotics. We will follow along while he has in the hospital. I also have talked to his daughter on the phone this morning. He looks comfortable overall. Has been started on Zosyn and vancomycin. Procedures Date of Service Date of Service: 02/29/24
--- NOTE | 2024-02-22 10:05 | PHA.PROG ---
Admission Date/Time: February 21, 2024 22:45 Indication: SKIN.SEPSIS Weight in k.746 kg Adjusted body weight in Kg: [place] body weight in Kg: Obesity Dosing Indication % IBW: Serum Creatinine - Last 168 Hours 02/21/24 02/22/24 19:47 05:10 Creatinine 1.01 0.87 Estimated CrCl and GFR - Last 168 Hours 02/21/24 02/22/24 19:47 05:10 Estim Creat Clear Calc 48.9 56.7 Estimated GFR > 60 > 60 Vancomycin Loading Dose: 200 MG X 1 Current Vancomycin Dosing Regimen: 1500 MG Q24H Vancomycin Monitoring using AUC goal of 400 - 600 range with trough as surrogate marker: PREDICTED AUC OF 530 Date and Time for next Vancomycin Level to be drawn: 02/23/24 @1900 Pharmacist Comments on Vancomycin Plan: Vancomycin dosing will take advantage of [employer] as a clinical decision support tool that uses Bayesian modeling to calculate individual patient's pharmacokinetic parameters and forecast the patient's drug concentration time course with the target goal AUC 24 range of 400 - 600 mg/L/hr.
--- NOTE | 2024-02-22 11:30 | HO.PM.IMPN ---
Subjective Subjective Date of Service: 02/22/24 Interval History: seen by surgeon, declined 2nd toe amputation no fever/chills no chest pain Review of Systems Review of Systems: Yes all other systems are reviewed and are negative Physical Exam Vital Signs: Vital Signs: Last Vital Signs Temp 96.9 F 02/22/24 09:05 Pulse 70 02/22/24 09:05 Resp 14 02/22/24 09:05 BP 133/61 02/22/24 09:05 Pulse Ox 96 02/22/24 09:05 O2 Del Method Room Air 02/22/24 09:05 BMI result Body Mass Index 26.7 Gen: in no acute distress HEENT: sclera anicteric, moist mucus membranes Neck: supple Lungs: clear to auscultation bilaterally Heart: regular rate and rhythm, no murmurs Abd: soft, non-tender, non-distended Ext: no edema, healed R 1st toe amputation site, R 2nd toe with draining ulcer Skin: warm/well-perfused Neuro: alert and oriented x3, no focal findings Psych: appropriate affect Objective Data Active Medications Acetaminophen (Acetaminophen 325 Mg Tablet) 650 mg PO Q6H PRN PRN Reason: Pain, Mild (Pain Scale 1-3) Enoxaparin Sodium (Enoxaparin Sodium 40 Mg/0.4 Ml Syringe) 40 mg SUBCUT Q24H [facility] Last Admin: 02/21/24 21:36 Dose: 40 mg Documented By: JIGNESH Piperacillin Sod/Tazobactam (Sod 4.5 gm/ Sodium Chloride) 100 mls @ 200 mls/hr IV Q6H [facility] Last Infusion: 02/22/24 10:41 Dose: Infused Documented By: MAXIMO Vancomycin HCl 1,500 mg/ (Sodium Chloride) 500 mls @ 333.333 mls/hr IV Q24H [facility] Melatonin (Melatonin 3 Mg Tablet) 6 mg PO BEDTIME PRN PRN Reason: Insomnia Ondansetron HCl (Ondansetron Hcl 4 Mg/2 Ml Vial) 4 mg IVPUSH Q8H PRN PRN Reason: Nausea and Vomiting Pharmacy Consult (Consult Rx Vancomycin Dosing) 1 each MISCELLANE DAILY PRN PRN Reason: Consult order Sodium Chloride (0.9 % Sodium Chloride Flush 3 Ml Syringe) 3 ml IVFLUSH QSHIFT [facility] Last Admin: 02/22/24 07:57 Dose: 3 ml Documented By: LANEY Labs 02/22/24 05:10 02/22/24 05:10 Labs: Laboratory Results - last 24 hr 02/21/24 02/21/24 02/21/24 19:47 21:03 23:01 MCV 85.8 MCH 29.1 MCHC 33.9 RDW 14.3 Plt Count 229 D MPV 9.2 L Immature Gran % (Auto) 0.6 H Neut % (Auto) 87.1 H Lymph % (Auto) 3.4 L [place] % (Auto) 8.7 Eos % (Auto) 0.1 Baso % (Auto) 0.1 Lymph # (Auto) 0.5 L [place] # (Auto) 1.2 Eos # (Auto) 0.0 Baso # (Auto) 0.0 Abs Immat Gran (auto) 0.08 H Absolute Neuts (auto) 11.8 H Absolute Nucleated RBC 0.000 Nucleated RBC % (auto) 0.0 ESR 67 H Anion Gap 13 Estim Creat Clear Calc 48.9 Estimated GFR > 60 Random Glucose 194 H Estimat Average Glucose Hemoglobin A1c % Lactic Acid 0.8 Calcium 8.7 D Total Bilirubin 0.5 AST 16 ALT 12 Alkaline Phosphatase 75 Troponin I High Sens 61.7 H C-Reactive Protein 16.34 H Total Protein 6.9 Albumin 3.3 L Urine Color Yellow Urine Appearance Clear Urine pH 5.5 Ur Specific [place] 1.025 Urine Protein Trace Urine Glucose (UA) Negative Urine Ketones Negative Urine Blood Negative Urine Nitrite Negative Ur Leukocyte Esterase Negative 02/22/24 02/22/24 05:10 07:46 MCV 87.9 MCH 28.7 MCHC 32.7 RDW 14.5 Plt Count 252 MPV 9.6 Immature Gran % (Auto) 0.4 Neut % (Auto) 74.7 H Lymph % (Auto) 15.6 L [place] % (Auto) 9.1 Eos % (Auto) 0.1 Baso % (Auto) 0.1 Lymph # (Auto) 2.4 [place] # (Auto) 1.4 H Eos # (Auto) 0.0 Baso # (Auto) 0.0 Abs Immat Gran (auto) 0.06 H Absolute Neuts (auto) 11.3 H Absolute Nucleated RBC 0.000 Nucleated RBC % (auto) 0.0 ESR Anion Gap 15 Estim Creat Clear Calc 56.7 Estimated GFR > 60 Random Glucose 125 H Estimat Average Glucose 148 Hemoglobin A1c % 6.8 H Lactic Acid Calcium 8.7 Total Bilirubin AST ALT Alkaline Phosphatase Troponin I High Sens 146.9 H* D C-Reactive Protein Total Protein Albumin Urine Color Urine Appearance Urine pH Ur Specific [place] Urine Protein Urine Glucose (UA) Urine Ketones Urine Blood Urine Nitrite Ur Leukocyte Esterase Assessment and Plan (1) Osteomyelitis: Status: Acute Plan d2 88yo M with CAD s/p 3v CABG, HTN, HLD, BPH, hypothyroidism, gout recent osteomyelitis of R 1st toe s/p amputation 08/28/23 presented after fall, found to be septic due to osteomyelitis of R 2nd toe R 2nd toe osteomyellitis + ulcer - 02/20- vanco + pip-adry, follow BCx, ID consult pending - Gen Surg consulted, pt declines amputation Tn-I elevation - suspect demand due to sepsis; no EKG changes or ischemic symptoms; will consult Cardiology + obtain TTE CAD - statin, metoprolol tartrate HTN - metoprolol tartrate, lisinopril hypothyroidism - continue LT4 BPH - continue tamsulosin gout - allopurinol VTE ppx - LMWH dispo - TBD In my clinical judgment, the patient requires continued inpatient hospitalization for the following reasons: IV ABX Total time managing care of this patient today: 40 minutes. Quality Stroke Does the patient have a stroke diagnosis?: No VTE Prior VTE?: No VTE Risk Level:: Medical - moderate - high VTE Device Contraindication: Treatment Not Indicated VTE Drug Contraindication: N/A - Med Ordered
--- NOTE | 2024-02-22 11:54 | P.CONCA_ITS ---
History of Present Illness History of Present Illness Date of Service: 02/22/24 Requesting physician: Analia Velazquez Chief complaint: Foot infection, +troponins Narrative: 88-year-old gentleman presenting for right foot infection and osteomyelitis of the 2nd toe. He was also noticed to have mildly elevated troponin levels. He has known history of coronary artery bypass surgery. He is saying he has no chest pains or shortness of breath. He ambulates as much as he can and has no limitations from cardiovascular symptoms. EKGs not showing dynamic changes. Mildly elevated troponin level as mentioned. He is on antibiotics currently. [facility] Past Medical History Medical History Open wound Hypothyroidism BPH (benign prostatic hyperplasia) CAD (coronary artery disease) Gout HTN (hypertension) Peripheral vascular disease Surgical History Surgical History Hx of surgical procedure (~08/28/23) S/P CABG (coronary artery bypass graft) Osteomyelitis Social History Social History Household Members: Spouse Housing: House Do you presently have visiting nurse or other home services: No Patient Tobacco Use Status: Former Tobacco user Tobacco use type: Cigarette Advance Directives: No Advance Directives Information Provided: No Advance Directives Date on File: 06/02/23 Do you have a plan to hurt others: No Plan Nutrition Risks: No Nutritional Risk service: Yes Meds Allergies Allergy/AdvReac Type Severity Reaction Status Date / Time No Known Allergies Allergy Verified 02/21/24 19:28 Active Medications: Current Medications Acetaminophen (Acetaminophen 325 Mg Tablet) 650 mg PO Q6H PRN PRN Reason: Pain, Mild (Pain Scale 1-3) Enoxaparin Sodium (Enoxaparin Sodium 40 Mg/0.4 Ml Syringe) 40 mg SUBCUT Q24H [facility] Last Admin: 02/21/24 21:36 Dose: 40 mg Glucose (Glucose Gel 15 Gm Gel..Gram.) 15 gm PO Q15M PRN; Protocol PRN Reason: per Hypoglycemia Standing Ord. Piperacillin Sod/Tazobactam (Sod 4.5 gm/ Sodium Chloride) 100 mls @ 200 mls/hr IV Q6H [facility] Last Infusion: 02/22/24 10:41 Dose: Infused Vancomycin HCl 1,500 mg/ (Sodium Chloride) 500 mls @ 333.333 mls/hr IV Q24H [facility] Dextrose (D10) 250 mls @ 750 mls/hr IV Q15M PRN; Protocol PRN Reason: per Hypoglycemia Standing Ord. Insulin Human Lispro (Insulin Lispro 100 Unit/Ml 3 Ml Vial) 0 unit SUBCUT QIDACHS [facility]; Protocol Melatonin (Melatonin 3 Mg Tablet) 6 mg PO BEDTIME PRN PRN Reason: Insomnia Ondansetron HCl (Ondansetron Hcl 4 Mg/2 Ml Vial) 4 mg IVPUSH Q8H PRN PRN Reason: Nausea and Vomiting Pharmacy Consult (Consult Rx Vancomycin Dosing) 1 each MISCELLANE DAILY PRN PRN Reason: Consult order Sodium Chloride (0.9 % Sodium Chloride Flush 3 Ml Syringe) [facility] Last Admin: 02/22/24 07:57 Dose: 3 ml Home Medications ?Medication ?Instructions ?Recorded ?Confirmed ?Last Taken ?Type allopurinol 300 mg tablet 300 mg PO DAILY 05/08/23 12/15/23 Unknown History atorvastatin 40 mg tablet 40 mg PO DAILY 05/08/23 12/15/23 Unknown History finasteride 5 mg tablet 5 mg PO DAILY 05/08/23 12/15/23 Unknown History levothyroxine 75 mcg capsule 75 mcg PO DAILY 05/08/23 12/15/23 Unknown History lisinopril 20 mg tablet 20 mg PO DAILY 05/08/23 12/15/23 Unknown History tamsulosin 0.4 mg capsule 0.4 mg PO DAILY 05/08/23 12/15/23 Unknown History metoprolol tartrate 25 mg tablet 25 mg PO BID 08/26/23 12/15/23 Unknown History Physical Exam 2 Vital Signs: Vital Signs: Last Vital Signs Temp 96.9 F 02/22/24 09:05 Pulse 70 02/22/24 09:05 Resp 14 02/22/24 09:05 BP 133/61 02/22/24 09:05 Pulse Ox 96 02/22/24 09:05 O2 Del Method Room Air 02/22/24 09:05 BMI result Body Mass Index 26.7 GENERAL APPEARANCE: in no acute distress, pleasant. NECK: no carotid bruit, no jugular venous distention. SKIN: no suspicious lesions, warm and dry. HEART: no murmurs, regular rate and rhythm. LUNGS: clear to auscultation bilaterally. ABDOMEN: soft, nontender. EXTREMITIES: Right 2nd toe with open area with discharge and significant swelling. PERIPHERAL PULSES: equal. NEUROLOGIC: No gross deficits, AAO X 3 Objective Labs and Meds 02/22/24 05:10 02/22/24 05:10 Lab results: Laboratory Results - last 24 hr 02/21/24 02/21/24 02/21/24 19:47 21:03 23:01 WBC 13.6 H RBC 3.95 L Hgb 11.5 L Hct 33.9 L MCV 85.8 MCH 29.1 MCHC 33.9 RDW 14.3 Plt Count 229 D MPV 9.2 L Immature Gran % (Auto) 0.6 H Neut % (Auto) 87.1 H Lymph % (Auto) 3.4 L [place] % (Auto) 8.7 Eos % (Auto) 0.1 Baso % (Auto) 0.1 Lymph # (Auto) 0.5 L [place] # (Auto) 1.2 Eos # (Auto) 0.0 Baso # (Auto) 0.0 Abs Immat Gran (auto) 0.08 H Absolute Neuts (auto) 11.8 H Absolute Nucleated RBC 0.000 Nucleated RBC % (auto) 0.0 ESR 67 H Sodium 136 Potassium 3.9 Chloride 105 Carbon Dioxide 22 Anion Gap 13 BUN 30 H Creatinine 1.01 Estim Creat Clear Calc 48.9 Estimated GFR > 60 Random Glucose 194 H Estimat Average Glucose Hemoglobin A1c % Lactic Acid 0.8 Calcium 8.7 D Total Bilirubin 0.5 AST 16 ALT 12 Alkaline Phosphatase 75 Troponin I High Sens 61.7 H C-Reactive Protein 16.34 H Total Protein 6.9 Albumin 3.3 L Urine Color Yellow Urine Appearance Clear Urine pH 5.5 Ur Specific [place] 1.025 Urine Protein Trace Urine Glucose (UA) Negative Urine Ketones Negative Urine Blood Negative Urine Nitrite Negative Ur Leukocyte Esterase Negative 02/22/24 02/22/24 05:10 07:46 WBC 15.1 H RBC 4.14 L Hgb 11.9 L Hct 36.4 L MCV 87.9 MCH 28.7 MCHC 32.7 RDW 14.5 Plt Count 252 MPV 9.6 Immature Gran % (Auto) 0.4 Neut % (Auto) 74.7 H Lymph % (Auto) 15.6 L [place] % (Auto) 9.1 Eos % (Auto) 0.1 Baso % (Auto) 0.1 Lymph # (Auto) 2.4 [place] # (Auto) 1.4 H Eos # (Auto) 0.0 Baso # (Auto) 0.0 Abs Immat Gran (auto) 0.06 H Absolute Neuts (auto) 11.3 H Absolute Nucleated RBC 0.000 Nucleated RBC % (auto) 0.0 ESR Sodium 139 Potassium 3.5 Chloride 106 Carbon Dioxide 22 Anion Gap 15 BUN 22 H Creatinine 0.87 Estim Creat Clear Calc 56.7 Estimated GFR > 60 Random Glucose 125 H Estimat Average Glucose 148 Hemoglobin A1c % 6.8 H Lactic Acid Calcium 8.7 Total Bilirubin AST ALT Alkaline Phosphatase Troponin I High Sens 146.9 H* D C-Reactive Protein Total Protein Albumin Urine Color Urine Appearance Urine pH Ur Specific [place] Urine Protein Urine Glucose (UA) Urine Ketones Urine Blood Urine Nitrite Ur Leukocyte Esterase Imaging Radiologist's impression: Impressions Cervical Spine CT 02/21/24 20:45 IMPRESSION: No acute intracranial pathology. No acute fracture subluxation cervical spine. Head CT 02/21/24 20:45 IMPRESSION: No acute intracranial pathology. No acute fracture subluxation cervical spine. Foot X-Ray 02/21/24 20:55 IMPRESSION: 1. Radiographic findings most concerning for osteomyelitis of the second toe distal phalanx 2. Cortical irregularity at the great toe metatarsal may be due to healing of the previously seen osteomyelitis. Residual osteomyelitis remains possible. Assessment and Plan (1) Osteomyelitis of second toe of left foot: Status: Acute (2) Elevated troponin: Status: Acute Plan 88-year-old gentleman with coronary artery bypass surgery and peripheral vascular disease presenting with osteomyelitis right 2nd toe. He already has amputation of the big toe on the right foot. In this setting he had mildly elevated troponin level. This is a type 2 injury. We will check echocardiogram to assess LV for any wall motion abnormalities. Do not recommend Procedures Date of Service Date of Service: 02/22/24
--- NOTE | 2024-02-22 14:12 | PC.NURSE ---
brought in med list, copy made and faxed to pharmacy for rec. Copy in patient physical chart, primary rn made aware.
--- NOTE | 2024-02-22 14:28 | PHA.MEDREC ---
Pharmacy Consult ? Medication Reconciliation Pharmacy has completed the medication reconciliation. List brought in by and faxed to pharmacy. List had both simvastatin and atorvastatin on it but atorvastatin was last filled in October and simvastatin has been filled more recently. Asked Lexi to verify with if pt is still taking aspirin and will update.
[2024-02-22 15:30] VITALS: BP 118/57; PULSE 67; RESP 14; TEMP 36.3; O2SAT 97
--- NOTE | 2024-02-22 16:27 | MHC.CM.PN ---
CM MET WITH PT AND AT BEDSIDE PT LIVES AT HOME AND IS INDEPENDENT WITH CARE HE HAS A VNA, BUT DOES NOT KNOW THE AGENCY NAME HE REPORTS HIS PCP IS DR ELIZABETH HE HAS A WALKER HE USES IN THE HOME HE WILL CONSIDER COMPLETING A HCP NAMING HIS AND POSSIBLY ANOTHER AGENT IMM DELIVERED DCP: HOME [facility]
--- NOTE | 2024-02-22 18:08 | PC.NURSE ---
BS checked by MADDIE Oviedo,RN witnessed,[facility] to [facility]
[2024-02-22 19:52] VITALS: BP 112/55; PULSE 91; RESP 13; TEMP 36.9; O2SAT 96
[2024-02-22] MEDS: vancomycin HCL 1,500 MG in 0.9 % Sodium Chloride 500 ML 333.33 MG IV (20:32)
[2024-02-22] MEDS: Enoxaparin Sodium 40 MG/0.4 ML SYRINGE SUBCUT (20:34)
[2024-02-22] MEDS: Atorvastatin Calcium 10 MG TABLET PO (20:34)
[2024-02-22] MEDS: Metoprolol Tartrate 25 MG TABLET PO (20:34)
[2024-02-22] MEDS: Insulin Lispro 100 UNIT/ML 3 ML VIAL SUBCUT (20:50)
[2024-02-22] MEDS: Acetaminophen 325 MG TABLET 650 MG PO (21:24)
[2024-02-23] MEDS: Piperacillin Sodium/Tazobactam 4.5 GM in 0.9 % Sodium Chloride 100 ML IV ×4 (02:28→20:51)
[2024-02-23 02:43] VITALS: BP 101/51; PULSE 70; RESP 18; TEMP 36.1; O2SAT 96
[2024-02-23] MEDS: Levothyroxine Sodium 75 MCG TABLET PO (05:48)
[2024-02-23 06:16] LABS: Hematocrit 31.6 % (42.0-52.0); Hemoglobin 10.5 g/dl (14.0-18.0); Mean Corpuscular HGB Conc 33.2 g/dl (31.0-36.0); Mean Corpuscular Hemoglobin 28.7 pg (27.0-33.0); Mean Corpuscular Volume 86.3 fL (80.0-98.0); Mean Platelet Volume 9.7 fL (9.4-12.4); Platelet Count 238 X10*3/uL (160-400); Red Blood Count 3.66 X10*6/uL (4.60-5.80); Red Cell Distribution Width 14.5 % (11.0-16.0); White Blood Count 13.5 X10*3/uL (4.8-10.8)
[2024-02-23 06:33] LABS: Anion Gap 14 (12-20); Blood Urea Nitrogen 22 mg/dL (9-16); Calcium 8.4 mg/dL (8.4-10.2); Carbon Dioxide 23 mmol/L (22-29); Chloride 108 mmol/L (96-108); Creatinine Clr Calc Pharmacy 59.5; Estimated Glomerular Filt Rate > 60; Glucose Random 96 mg/dL (60-115); Potassium 3.6 mmol/L (3.3-5.1); Sodium 141 mmol/L (135-145)
[2024-02-23 07:09] VITALS: BP 134/63; PULSE 56; RESP 12; TEMP 36.3; O2SAT 98
--- NOTE | 2024-02-23 08:30 | HO.WOUND ---
Attempted wound consultation however patient was working with different provider x 2 will attempt future time and or date.
[2024-02-23 09:06] VITALS: BP 134/63; PULSE 56
[2024-02-23] MEDS: Metoprolol Tartrate 25 MG TABLET PO ×2 (09:06→20:50)
[2024-02-23] MEDS: hydroCHLOROthiazide 25 MG TABLET PO (09:06)
[2024-02-23] MEDS: 0.9 % Sodium Chloride Flush 3 ML SYRINGE IVFLUSH ×3 (09:06→23:49)
[2024-02-23] MEDS: Finasteride 5 MG TABLET PO (09:06)
[2024-02-23] MEDS: allopurinoL 300 MG TABLET PO (09:06)
[2024-02-23] MEDS: Tamsulosin HCL 0.4 MG CAPSULE PO (09:06)
--- NOTE | 2024-02-23 09:30 | P.PNIM_ITS ---
Subjective Subjective Date of Service: 02/23/24 Interval History: denies pain no fever told in past that he had borderline diabetes Review of Systems Review of Systems: Yes all other systems are reviewed and are negative Physical Exam 2 Vital Signs: Vital Signs: Last Vital Signs Temp 97.4 F 02/23/24 07:09 Pulse 56 02/23/24 09:06 Resp 12 02/23/24 07:09 BP 134/63 02/23/24 09:06 Pulse Ox 98 02/23/24 07:09 O2 Del Method Room Air 02/23/24 07:09 BMI result Body Mass Index 26.7 Gen: in no acute distress HEENT: sclera anicteric, moist mucus membranes Neck: supple Lungs: clear to auscultation bilaterally Heart: regular rate and rhythm, no murmurs Abd: soft, non-tender, non-distended Ext: no edema, healed R 1st toe amputation site, R 2nd toe with draining ulcer Skin: warm/well-perfused Neuro: alert and oriented x3, no focal findings Psych: appropriate affect Objective Data Active Medications Acetaminophen (Acetaminophen 325 Mg Tablet) 650 mg PO Q6H PRN PRN Reason: Pain, Mild (Pain Scale 1-3) Last Admin: 02/22/24 21:24 Dose: 650 mg Documented By: JACIEL Allopurinol (Allopurinol 300 Mg Tablet) 300 mg PO DAILY [facility] Last Admin: 02/23/24 09:06 Dose: 300 mg Documented By: ISADORA Atorvastatin Calcium (Atorvastatin Calcium 10 Mg Tablet) 10 mg PO BEDTIME [facility] Last Admin: 02/22/24 20:34 Dose: 10 mg Documented By: JACIEL Enoxaparin Sodium (Enoxaparin Sodium 40 Mg/0.4 Ml Syringe) 40 mg SUBCUT Q24H [facility] Last Admin: 02/22/24 20:34 Dose: 40 mg Documented By: JACIEL Finasteride (Finasteride 5 Mg Tablet) 5 mg PO DAILY [facility] Last Admin: 02/23/24 09:06 Dose: 5 mg Documented By: ISADORA Glucose (Glucose Gel 15 Gm Gel..Gram.) 15 gm PO Q15M PRN; Protocol PRN Reason: per Hypoglycemia Standing Ord. Hydrochlorothiazide (Hydrochlorothiazide 25 Mg Tablet) 25 mg PO DAILY [facility]; Protocol Last Admin: 02/23/24 09:06 Dose: 25 mg Documented By: ISADORA Piperacillin Sod/Tazobactam (Sod 4.5 gm/ Sodium Chloride) 100 mls @ 200 mls/hr IV Q6H [facility] Last Admin: 02/23/24 09:08 Dose: 200 mls/hr Documented By: ISADORA Vancomycin HCl 1,500 mg/ (Sodium Chloride) 500 mls @ 333.333 mls/hr IV Q24H [facility] Last Infusion: 02/22/24 22:08 Dose: Infused Documented By: JACIEL Dextrose (D10) 250 mls @ 750 mls/hr IV Q15M PRN; Protocol PRN Reason: per Hypoglycemia Standing Ord. Insulin Human Lispro (Insulin Lispro 100 Unit/Ml 3 Ml Vial) 0 unit SUBCUT QIDACHS [facility]; Protocol Last Admin: 02/23/24 07:43 Dose: Not Given Documented By: ISADORA Non-Admin Reason: poc 86, no isulin needed Levothyroxine Sodium (Levothyroxine Sodium 75 Mcg Tablet) 75 mcg PO DAILY@0600 [facility] Last Admin: 02/23/24 05:48 Dose: 75 mcg Documented By: JACIEL Melatonin (Melatonin 3 Mg Tablet) 6 mg PO BEDTIME PRN PRN Reason: Insomnia Metoprolol Tartrate (Metoprolol Tartrate 25 Mg Tablet) 25 mg PO BID [facility]; Protocol Last Admin: 02/23/24 09:06 Dose: 25 mg Documented By: ISADORA Ondansetron HCl (Ondansetron Hcl 4 Mg/2 Ml Vial) 4 mg IVPUSH Q8H PRN PRN Reason: Nausea and Vomiting Pharmacy Consult (Consult Rx Vancomycin Dosing) 1 each MISCELLANE DAILY PRN PRN Reason: Consult order Sodium Chloride (0.9 % Sodium Chloride Flush 3 Ml Syringe) 3 ml IVFLUSH QSHIFT [facility] Last Admin: 02/23/24 09:06 Dose: 3 ml Documented By: ISADORA Tamsulosin HCl (Tamsulosin Hcl 0.4 Mg Capsule) 0.4 mg PO DAILY [facility] Last Admin: 02/23/24 09:06 Dose: 0.4 mg Documented By: ISADORA Labs 02/23/24 05:48 02/23/24 05:48 Labs: Laboratory Results - last 24 hr 02/23/24 05:48 MCV 86.3 MCH 28.7 MCHC 33.2 RDW 14.5 Plt Count 238 MPV 9.7 Absolute Nucleated RBC 0.000 Nucleated RBC % (auto) 0.0 Anion Gap 14 Estim Creat Clear Calc 59.5 Estimated GFR > 60 Random Glucose 96 Calcium 8.4 TTE 02/22/24 - Normal left ventricular cavity size. There is mildly increased left ventricular wall thickness. The left ventricular systolic function is low normal. The visually estimated ejection fraction is between 50-55%. - Diastolic function is normal for age. - Mildly increased right ventricular cavity size. There is mildly decreased right ventricular systolic function. - There is mild mitral valve regurgitation. - There is mild dilatation of the ascending aorta measuring 3.80 cm. Microbiology Microbiology Results: Microbiology 02/21/24 21:03 Blood Culture - Preliminary Blood - Venous No growth after 24 hours. 02/21/24 21:03 Blood Culture - Preliminary Blood - Venous No growth after 24 hours. Assessment and Plan (1) Osteomyelitis: Status: Acute Plan d3 88yo M with CAD s/p 3v CABG, HTN, HLD, BPH, hypothyroidism, gout recent osteomyelitis of R 1st toe s/p amputation 08/28/23 presented after fall, found to be septic due to osteomyelitis of R 2nd toe R 2nd toe osteomyellitis + ulcer - 02/20- vanco + pip-adry, follow BCx, ID consult pending, will likely need PICC and long-term IV ATBX - Gen Surg consulted, pt declines amputation Tn-I elevation - suspect demand due to sepsis; no EKG changes or ischemic symptoms; Cardiology consulted; no WMAs on TTE CAD - statin, metoprolol tartrate HTN - metoprolol tartrate, lisinopril hypothyroidism - continue LT4 BPH - continue tamsulosin gout - allopurinol VTE ppx - LMWH dispo - TBD; PT eval In my clinical judgment, the patient requires continued inpatient hospitalization for the following reasons: IV ABX Total time managing care of this patient today: 35 minutes. Quality Stroke Does the patient have a stroke diagnosis?: No VTE Prior VTE?: No VTE Risk Level:: Medical - moderate - high VTE Device Contraindication: Treatment Not Indicated VTE Drug Contraindication: N/A - Med Ordered
[2024-02-23 10:22] LABS: Glucose, Whole Blood 86 mg/dL (60-115)
[2024-02-23 11:28] LABS: Glucose, Whole Blood 185 mg/dL (60-115)
[2024-02-23 11:29] LABS: Glucose, Whole Blood 155 mg/dL (60-115)
[2024-02-23 11:29] LABS: Glucose, Whole Blood 127 mg/dL (60-115)
[2024-02-23 11:32] LABS: Glucose, Whole Blood 116 mg/dL (60-115)
[2024-02-23 12:01] LABS: Glucose, Whole Blood 98 mg/dL (60-115)
[2024-02-23] MEDS: Aspirin 81 MG TAB.CHEW PO (12:06)
--- NOTE | 2024-02-23 13:06 | HO.WOUND ---
Wound Consult: Initial 88yr old?Male admitted to [facility] on 02/21/24 - See progress notes and H&P for detailed history.? Wound consult placed for Right 2nd toe wound.? Patient agreeable to assessment and photo documentation.? Etiology: ?Nonhealing wound Measurements: 0.4cm x 0.4cm x 1cm Wound Bed: ,oist red and marbled yellow slough Drainage / Odor: no odor serosang small amount Edges: ? nonadherent Iram wound: red warm erythema with swelling noted - ? No Induration, Fluctuance or Warmth noted Pain: reports pain Goals of Treatment: ? Moist wound healing with durafiber AG and antimicrobial properties Recommendations: 1. Turn and Reposition every 2 hours and as needed for patient comfort.? Use pillows or wedges to support off loading positions. 2. Off Load all bony prominences with use of pillows and heel boots if needed.? Apply Preventative foams where needed. ? 3. Monitor for incontinence and moisture control, use barrier creams when needed for prevention and treatment. 4. Provide adequate and supplemental nutrition.? 5. Order or Continue low air loss mattress. 6. When applicable maintain blood glucose levels per Providers order. 7. Right 2nd toe - Cleanse with NS, pat dry. Lightly pack wound bed with cut strip of durafiber AG be sure to leave a wick for easy removal. Cover with dry gauze, and gauze wrap. Change every other day. Patient should follow with Dr. Farris and Outpatient wound clinic at time of discharge. Re-consult wound care Nurse for wound deterioration or wound changes.
--- NOTE | 2024-02-23 13:31 | P.CNID_ITS ---
History of Present Illness Data of Consult Service Date: 02/23/24 Requesting physician: Analia Velazquez Primary Care Provider: Fausto Leyva MD HPI Reason for consult: OM right foot,PVD He presents with right foot drainage and redness for five days. I had seen him for OM great toe started 01/2023 and finished six weeks IV Ertapenem and then changed to po Doxycycline 07/2023. He had amputation right great toe with metatarsal head on 08/28/2023. He has no microbiology seen. Imaging 2nd digit OM with fistula concern from area 1st MT/ Patient doesnt think wants further surgery at this time. Review of Systems 2 Review of Systems: Yes all other systems are reviewed and are negative PMFSH Past Medical History Medical History Open wound Hypothyroidism BPH (benign prostatic hyperplasia) CAD (coronary artery disease) Gout HTN (hypertension) Peripheral vascular disease Family History Family history: reviewed and not pertinent Surgical History Surgical History Hx of surgical procedure (~08/28/23) S/P CABG (coronary artery bypass graft) Osteomyelitis Social History Social History Household Members: Spouse Housing: House Do you presently have visiting nurse or other home services: Yes Patient Tobacco Use Status: Former Tobacco user Tobacco use type: Cigarette Use of substances other than those prescribed or required for medical reasons: No Currently Displaying Signs/Symptoms of Drug Intoxication Withdrawal: No Have you been hit, kicked, punched, or otherwise hurt by someone within the past year? If so, by whom?: No Do you feel safe in your current relationship?: Yes Is there a partner from a previous relationship who is making you feel unsafe now?: No Are you made to feel afraid or neglected: No [facility] Practices: [place] Advance Directives: No Advance Directives Information Provided: No Advance Directives Date on File: 06/02/23 Do you have a plan to hurt others: No Plan Recently lost weight without trying: No Nutrition Risks: No Nutritional Risk service: No Meds Allergies Allergy/AdvReac Type Severity Reaction Status Date / Time No Known Allergies Allergy Verified 02/21/24 19:28 Active Medications: Current Medications Acetaminophen (Acetaminophen 325 Mg Tablet) 650 mg PO Q6H PRN PRN Reason: Pain, Mild (Pain Scale 1-3) Last Admin: 02/22/24 21:24 Dose: 650 mg Allopurinol (Allopurinol 300 Mg Tablet) 300 mg PO DAILY [facility] Last Admin: 02/23/24 09:06 Dose: 300 mg Aspirin (Aspirin 81 Mg Tab.Chew) 81 mg PO DAILY [facility] Last Admin: 02/23/24 12:06 Dose: 81 mg Atorvastatin Calcium (Atorvastatin Calcium 10 Mg Tablet) 10 mg PO BEDTIME [facility] Last Admin: 02/22/24 20:34 Dose: 10 mg Enoxaparin Sodium (Enoxaparin Sodium 40 Mg/0.4 Ml Syringe) 40 mg SUBCUT Q24H [facility] Last Admin: 02/22/24 20:34 Dose: 40 mg Finasteride (Finasteride 5 Mg Tablet) 5 mg PO DAILY [facility] Last Admin: 02/23/24 09:06 Dose: 5 mg Glucose (Glucose Gel 15 Gm Gel..Gram.) 15 gm PO Q15M PRN; Protocol PRN Reason: per Hypoglycemia Standing Ord. Hydrochlorothiazide (Hydrochlorothiazide 25 Mg Tablet) 25 mg PO DAILY [facility]; Protocol Last Admin: 02/23/24 09:06 Dose: 25 mg Piperacillin Sod/Tazobactam (Sod 4.5 gm/ Sodium Chloride) 100 mls @ 200 mls/hr IV Q6H [facility] Last Infusion: 02/23/24 10:02 Dose: Infused Vancomycin HCl 1,500 mg/ (Sodium Chloride) 500 mls @ 333.333 mls/hr IV Q24H [facility] Last Infusion: 02/22/24 22:08 Dose: Infused Dextrose (D10) 250 mls @ 750 mls/hr IV Q15M PRN; Protocol PRN Reason: per Hypoglycemia Standing Ord. Insulin Human Lispro (Insulin Lispro 100 Unit/Ml 3 Ml Vial) 0 unit SUBCUT QIDACHS [facility]; Protocol Last Admin: 02/23/24 12:05 Dose: Not Given Levothyroxine Sodium (Levothyroxine Sodium 75 Mcg Tablet) 75 mcg PO DAILY@0600 [facility] Last Admin: 02/23/24 05:48 Dose: 75 mcg Melatonin (Melatonin 3 Mg Tablet) 6 mg PO BEDTIME PRN PRN Reason: Insomnia Metoprolol Tartrate (Metoprolol Tartrate 25 Mg Tablet) 25 mg PO BID [facility]; Protocol Last Admin: 02/23/24 09:06 Dose: 25 mg Ondansetron HCl (Ondansetron Hcl 4 Mg/2 Ml Vial) 4 mg IVPUSH Q8H PRN PRN Reason: Nausea and Vomiting Pharmacy Consult (Consult Rx Vancomycin Dosing) 1 each MISCELLANE DAILY PRN PRN Reason: Consult order Sodium Chloride (0.9 % Sodium Chloride Flush 3 Ml Syringe) 3 ml IVFLUSH QSHIFT [facility] Last Admin: 02/23/24 09:06 Dose: 3 ml Tamsulosin HCl (Tamsulosin Hcl 0.4 Mg Capsule) 0.4 mg PO DAILY [facility] Last Admin: 02/23/24 09:06 Dose: 0.4 mg Home Medications ?Medication ?Instructions ?Recorded ?Confirmed ?Last Taken ?Type allopurinol 300 mg tablet 300 mg PO DAILY 05/08/23 02/22/24 Unknown History finasteride 5 mg tablet 5 mg PO DAILY 05/08/23 02/22/24 Unknown History levothyroxine 75 mcg capsule 75 mcg PO DAILY@0600 05/08/23 02/22/24 Unknown History tamsulosin 0.4 mg capsule 0.4 mg PO DAILY 05/08/23 02/22/24 Unknown History metoprolol tartrate 25 mg tablet 25 mg PO BID 08/26/23 02/22/24 Unknown History hydrochlorothiazide 25 mg tablet 25 mg PO DAILY 02/22/24 02/22/24 Unknown History simvastatin 20 mg tablet 20 mg PO BEDTIME 02/22/24 02/22/24 Unknown History Physical Exam 2 Vital Signs: Vital Signs: Last Vital Signs Temp 97.4 F 02/23/24 07:09 Pulse 56 02/23/24 09:06 Resp 12 02/23/24 07:09 BP 134/63 02/23/24 09:06 Pulse Ox 98 02/23/24 07:09 O2 Del Method Room Air 02/23/24 07:09 BMI result Body Mass Index 26.7 Const: General: cooperative HEENT: Head: Yes normal to inspection Face and sinus: Yes normal facial exam Mouth: Normal oral and palatal mucosa present Teeth and gingiva: d entition normal Eyes: General: appearance normal, both eyes and all related structures P upils: Equal, round and reactive pupils present Resp: Effort & Inspection: normal respiratory effort Cardio: Rate: regular rate Rhythm: regular rhythm GI: Palpation (GI): Soft to palpation and nontender : General: Yes no CVA tenderness Back/Spine/Pelvis: Back: no CVA tenderness Skin: General skin exam: no rashes or lesions noted Neuro: General: moves all extremities Cranial nerves: Yes Equal, round and reactive pupils present Extrem: Other: foot reddened around 2nd digit neuropathy Psych: Appearance: grossly normal Results Labs 02/23/24 05:48 02/23/24 05:48 Labs: Short CBC 02/23/24 Range/Units 05:48 WBC 13.5 H (4.8-10.8) X10*3/uL Hgb 10.5 L (14.0-18.0) g/dl Hct 31.6 L (42.0-52.0) % Plt Count 238 (160-400) X10*3/uL BMP 02/23/24 05:48 Sodium 141 Potassium 3.6 Chloride 108 Carbon Dioxide 23 BUN 22 H Creatinine 0.83 Calcium 8.4 Microbiology Microbiology Results: Microbiology 02/21/24 21:03 Blood - Venous Blood Culture - Preliminary No growth after 24 hours. 02/21/24 21:03 Blood - Venous Blood Culture - Preliminary No growth after 24 hours. 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 (2) Peripheral vascular disease: Status: Acute Plan If patient desires given above information can give six weeks IV Ertapenem with weekly cbc and creatinine.
--- NOTE | 2024-02-23 14:15 | P.PNGS_ITS ---
Subjective Subjective Date of Service: 02/23/24 Interval history: no new complaints Feels welll overall Denies pain on the right foot Physical Exam 2 Vital Signs: Vital Signs: Last Vital Signs Temp 97.4 F 02/23/24 07:09 Pulse 56 02/23/24 09:06 Resp 12 02/23/24 07:09 BP 134/63 02/23/24 09:06 Pulse Ox 98 02/23/24 07:09 O2 Del Method Room Air 02/23/24 07:09 BMI result Body Mass Index 26.7 Const: General: comfortable and no acute distress Resp: Effort & Inspection: normal respiratory effort Cardio: Rate: regular rate GI: Palpation (GI): Soft to palpation Extrem: Other: Ulcer on 2nd toe on the right Objective Data Active Medications Acetaminophen (Acetaminophen 325 Mg Tablet) 650 mg PO Q6H PRN PRN Reason: Pain, Mild (Pain Scale 1-3) Last Admin: 02/22/24 21:24 Dose: 650 mg Documented By: JACIEL Allopurinol (Allopurinol 300 Mg Tablet) 300 mg PO DAILY [facility] Last Admin: 02/23/24 09:06 Dose: 300 mg Documented By: ISADORA Aspirin (Aspirin 81 Mg Tab.Chew) 81 mg PO DAILY [facility] Last Admin: 02/23/24 12:06 Dose: 81 mg Documented By: ISADORA Comments: given late d/t pt at Atorvastatin Calcium (Atorvastatin Calcium 10 Mg Tablet) 10 mg PO BEDTIME [facility] Last Admin: 02/22/24 20:34 Dose: 10 mg Documented By: JACIEL Enoxaparin Sodium (Enoxaparin Sodium 40 Mg/0.4 Ml Syringe) 40 mg SUBCUT Q24H [facility] Last Admin: 02/22/24 20:34 Dose: 40 mg Documented By: JACIEL Finasteride (Finasteride 5 Mg Tablet) 5 mg PO DAILY [facility] Last Admin: 02/23/24 09:06 Dose: 5 mg Documented By: ISADORA Glucose (Glucose Gel 15 Gm Gel..Gram.) 15 gm PO Q15M PRN; Protocol PRN Reason: per Hypoglycemia Standing Ord. Hydrochlorothiazide (Hydrochlorothiazide 25 Mg Tablet) 25 mg PO DAILY [facility]; Protocol Last Admin: 02/23/24 09:06 Dose: 25 mg Documented By: ISADORA Piperacillin Sod/Tazobactam (Sod 4.5 gm/ Sodium Chloride) 100 mls @ 200 mls/hr IV Q6H [facility] Last Infusion: 02/23/24 10:02 Dose: Infused Documented By: ISADORA Vancomycin HCl 1,500 mg/ (Sodium Chloride) 500 mls @ 333.333 mls/hr IV Q24H [facility] Last Infusion: 02/22/24 22:08 Dose: Infused Documented By: JACIEL Dextrose (D10) 250 mls @ 750 mls/hr IV Q15M PRN; Protocol PRN Reason: per Hypoglycemia Standing Ord. Insulin Human Lispro (Insulin Lispro 100 Unit/Ml 3 Ml Vial) 0 unit SUBCUT QIDACHS [facility]; Protocol Last Admin: 02/23/24 12:05 Dose: Not Given Documented By: ISADORA Non-Admin Reason: No Insulin Coverage Levothyroxine Sodium (Levothyroxine Sodium 75 Mcg Tablet) 75 mcg PO DAILY@0600 [facility] Last Admin: 02/23/24 05:48 Dose: 75 mcg Documented By: JACIEL Melatonin (Melatonin 3 Mg Tablet) 6 mg PO BEDTIME PRN PRN Reason: Insomnia Metoprolol Tartrate (Metoprolol Tartrate 25 Mg Tablet) 25 mg PO BID [facility]; Protocol Last Admin: 02/23/24 09:06 Dose: 25 mg Documented By: ISADORA Ondansetron HCl (Ondansetron Hcl 4 Mg/2 Ml Vial) 4 mg IVPUSH Q8H PRN PRN Reason: Nausea and Vomiting Pharmacy Consult (Consult Rx Vancomycin Dosing) 1 each MISCELLANE DAILY PRN PRN Reason: Consult order Sodium Chloride (0.9 % Sodium Chloride Flush 3 Ml Syringe) 3 ml IVFLUSH QSHIFT [facility] Last Admin: 02/23/24 09:06 Dose: 3 ml Documented By: ISADORA Tamsulosin HCl (Tamsulosin Hcl 0.4 Mg Capsule) 0.4 mg PO DAILY [facility] Last Admin: 02/23/24 09:06 Dose: 0.4 mg Documented By: ISADORA Labs 02/23/24 05:48 02/23/24 05:48 Labs: Laboratory Results - last 24 hr 02/22/24 02/22/24 02/22/24 12:09 16:14 17:54 MCV MCH MCHC RDW Plt Count MPV Absolute Nucleated RBC Nucleated RBC % (auto) Anion Gap Estim Creat Clear Calc Estimated GFR POC Glucose 116 H 155 H 127 H Random Glucose Calcium 02/22/24 02/23/24 02/23/24 19:55 05:48 07:11 MCV 86.3 MCH 28.7 MCHC 33.2 RDW 14.5 Plt Count 238 MPV 9.7 Absolute Nucleated RBC 0.000 Nucleated RBC % (auto) 0.0 Anion Gap 14 Estim Creat Clear Calc 59.5 Estimated GFR > 60 POC Glucose 185 H 86 Random Glucose 96 Calcium 8.4 02/23/24 11:57 MCV MCH MCHC RDW Plt Count MPV Absolute Nucleated RBC Nucleated RBC % (auto) Anion Gap Estim Creat Clear Calc Estimated GFR POC Glucose 98 Random Glucose Calcium Microbiology Microbiology Results: Microbiology 02/21/24 21:03 Blood Culture - Preliminary Blood - Venous No growth after 24 hours. 02/21/24 21:03 Blood Culture - Preliminary Blood - Venous No growth after 24 hours. Procedures Date of Service Date of Service: 02/23/24 Progress Note: A&P Assessment and plan (1) Osteomyelitis: Status: Acute Assessment and Plan: Continues to do well I told him I am recommending amputation of the 2nd toe He is hesitant about proceeding He wants to go home and think about it was with him during the long discussion Time Spent With Patient Time: Total time managing care of this patient today ____ minutes. Quality Stroke Does the patient have a stroke diagnosis?: No VTE Prior VTE?: No VTE Risk Level:: Medical - moderate - high VTE Device Contraindication: Treatment Not Indicated VTE Drug Contraindication: N/A - Med Ordered
--- NOTE | 2024-02-23 15:03 | MHC.CM.PN ---
per rounds pt not medically staple for dc plan remains home w/vna
[2024-02-23 15:24] VITALS: BP 101/55; PULSE 60; RESP 16; TEMP 36.2; O2SAT 99
[2024-02-23 16:20] LABS: Glucose, Whole Blood 166 mg/dL (60-115)
[2024-02-23 19:54] LABS: Vancomycin Random 5.5 mcg/mL (15-20)
[2024-02-23 20:04] LABS: Glucose, Whole Blood 140 mg/dL (60-115)
[2024-02-23 20:50] VITALS: BP 101/55; PULSE 60
[2024-02-23] MEDS: Atorvastatin Calcium 10 MG TABLET PO (20:50)
[2024-02-23] MEDS: Enoxaparin Sodium 40 MG/0.4 ML SYRINGE SUBCUT (20:50)
[2024-02-23] MEDS: vancomycin HCL 1,500 MG in 0.9 % Sodium Chloride 500 ML 333.33 MG IV (21:23)
[2024-02-23 23:14] VITALS: BP 146/66; PULSE 58; RESP 18; TEMP 36.4; O2SAT 98
[2024-02-24] VITALS (8 sets, daily range): BP systolic 139–160; BP diastolic 60–67; PULSE 57–60; RESP 16–18; TEMP 36.3–36.6; O2SAT 84–98
[2024-02-24] MEDS: Piperacillin Sodium/Tazobactam 4.5 GM in 0.9 % Sodium Chloride 100 ML IV ×4 (03:16→21:17)
[2024-02-24] MEDS: Levothyroxine Sodium 75 MCG TABLET PO (06:05)
[2024-02-24 06:39] LABS: Anion Gap 13 (12-20); Blood Urea Nitrogen 19 mg/dL (9-16); Calcium 8.4 mg/dL (8.4-10.2); Carbon Dioxide 24 mmol/L (22-29); Chloride 108 mmol/L (96-108); Creatinine Clr Calc Pharmacy 59.5; Estimated Glomerular Filt Rate > 60; Glucose Random 110 mg/dL (60-115); Potassium 3.8 mmol/L (3.3-5.1); Sodium 141 mmol/L (135-145)
[2024-02-24 07:24] LABS: Glucose, Whole Blood 103 mg/dL (60-115)
[2024-02-24] MEDS: Metoprolol Tartrate 25 MG TABLET PO ×2 (09:37→21:15)
[2024-02-24] MEDS: 0.9 % Sodium Chloride Flush 3 ML SYRINGE IVFLUSH ×3 (09:37→21:15)
[2024-02-24] MEDS: hydroCHLOROthiazide 25 MG TABLET PO (09:38)
[2024-02-24] MEDS: allopurinoL 300 MG TABLET PO (09:38)
[2024-02-24] MEDS: Aspirin 81 MG TAB.CHEW PO (09:38)
[2024-02-24] MEDS: vancomycin HCL 1,500 MG in 0.9 % Sodium Chloride 500 ML 333.33 MG IV (10:52)
--- NOTE | 2024-02-24 10:56 | MHC.CM.PN ---
Cm met w/pt to discuss dispo, per pt cm contacted pt's Giselle [phone] 10:50am, Giselle reports if someone teaches her she will be able to do it, pt also active w/[facility] and referral placed to [facility].
[2024-02-24 11:04] LABS: Glucose, Whole Blood 174 mg/dL (60-115)
[2024-02-24] MEDS: Insulin Lispro 100 UNIT/ML 3 ML VIAL SUBCUT ×2 (11:44→21:14)
--- NOTE | 2024-02-24 14:15 | P.PNIM_ITS ---
Subjective Subjective Date of Service: 03/06/24 Interval History: no fever/chills no foot pain Review of Systems Review of Systems: Yes all other systems are reviewed and are negative Physical Exam 2 Vital Signs: Vital Signs: Last Vital Signs Temp 98 F 02/24/24 07:16 Pulse 60 02/24/24 09:37 Resp 16 02/24/24 07:16 BP 145/60 H 02/24/24 09:38 Pulse Ox 98 02/24/24 07:16 O2 Del Method Room Air 02/24/24 07:16 O2 Flow Rate 5 02/24/24 02:25 BMI result Body Mass Index 26.7 Gen: in no acute distress HEENT: sclera anicteric, moist mucus membranes Neck: supple Lungs: clear to auscultation bilaterally Heart: regular rate and rhythm, no murmurs Abd: soft, non-tender, non-distended Ext: no edema, healed R 1st toe amputation site, R 2nd toe with draining ulcer Skin: warm/well-perfused Neuro: alert and oriented x3, no focal findings Psych: appropriate affect Objective Data Active Medications Acetaminophen (Acetaminophen 325 Mg Tablet) 650 mg PO Q6H PRN PRN Reason: Pain, Mild (Pain Scale 1-3) Last Admin: 02/22/24 21:24 Dose: 650 mg Documented By: JACIEL Allopurinol (Allopurinol 300 Mg Tablet) 300 mg PO DAILY [facility] Last Admin: 02/24/24 09:38 Dose: 300 mg Documented By: ISADORA Aspirin (Aspirin 81 Mg Tab.Chew) 81 mg PO DAILY [facility] Last Admin: 02/24/24 09:38 Dose: 81 mg Documented By: ISADORA Atorvastatin Calcium (Atorvastatin Calcium 10 Mg Tablet) 10 mg PO BEDTIME [facility] Last Admin: 02/23/24 20:50 Dose: 10 mg Documented By: JEEVAN Enoxaparin Sodium (Enoxaparin Sodium 40 Mg/0.4 Ml Syringe) 40 mg SUBCUT Q24H [facility] Last Admin: 02/23/24 20:50 Dose: 40 mg Documented By: JEEVAN Finasteride (Finasteride 5 Mg Tablet) 5 mg PO BEDTIME [facility] Glucose (Glucose Gel 15 Gm Gel..Gram.) 15 gm PO Q15M PRN; Protocol PRN Reason: per Hypoglycemia Standing Ord. Hydrochlorothiazide (Hydrochlorothiazide 25 Mg Tablet) 25 mg PO DAILY [facility]; Protocol Last Admin: 02/24/24 09:38 Dose: 25 mg Documented By: ISADORA Piperacillin Sod/Tazobactam (Sod 4.5 gm/ Sodium Chloride) 100 mls @ 200 mls/hr IV Q6H [facility] Last Infusion: 02/24/24 10:21 Dose: Infused Documented By: ISADORA Dextrose (D10) 250 mls @ 750 mls/hr IV Q15M PRN; Protocol PRN Reason: per Hypoglycemia Standing Ord. Vancomycin HCl 1,500 mg/ (Sodium Chloride) 500 mls @ 333.333 mls/hr IV Q12H [facility] Last Infusion: 02/24/24 12:28 Dose: Infused Documented By: ISADORA Insulin Human Lispro (Insulin Lispro 100 Unit/Ml 3 Ml Vial) 0 unit SUBCUT QIDACHS [facility]; Protocol Last Admin: 02/24/24 11:44 Dose: 2 unit Documented By: ISADORA Levothyroxine Sodium (Levothyroxine Sodium 75 Mcg Tablet) 75 mcg PO DAILY@0600 [facility] Last Admin: 02/24/24 06:05 Dose: 75 mcg Documented By: DEBRA Melatonin (Melatonin 3 Mg Tablet) 6 mg PO BEDTIME PRN PRN Reason: Insomnia Metoprolol Tartrate (Metoprolol Tartrate 25 Mg Tablet) 25 mg PO BID [facility]; Protocol Last Admin: 02/24/24 09:37 Dose: 25 mg Documented By: ISADORA Ondansetron HCl (Ondansetron Hcl 4 Mg/2 Ml Vial) 4 mg IVPUSH Q8H PRN PRN Reason: Nausea and Vomiting Pharmacy Consult (Consult Rx Vancomycin Dosing) 1 each MISCELLANE DAILY PRN PRN Reason: Consult order Sodium Chloride (0.9 % Sodium Chloride Flush 3 Ml Syringe) 3 ml IVFLUSH QSHIFT [facility] Last Admin: 02/24/24 09:37 Dose: 3 ml Documented By: ISADORA Tamsulosin HCl (Tamsulosin Hcl 0.4 Mg Capsule) 0.4 mg PO BEDTIME [facility] Labs 02/23/24 05:48 02/25/24 05:07 Labs: Laboratory Results - last 24 hr 02/23/24 02/23/24 02/23/24 16:16 19:26 19:56 Anion Gap Estim Creat Clear Calc Estimated GFR POC Glucose 166 H 140 H Random Glucose Calcium Random Vancomycin 5.5 L 02/24/24 02/24/24 02/24/24 05:59 07:15 10:59 Anion Gap 13 Estim Creat Clear Calc 59.5 Estimated GFR > 60 POC Glucose 103 174 H Random Glucose 110 Calcium 8.4 Random Vancomycin Microbiology Microbiology Results: Microbiology 02/21/24 21:03 Blood Culture - Preliminary Blood - Venous No growth after 48 hours. 02/21/24 21:03 Blood Culture - Preliminary Blood - Venous No growth after 48 hours. Assessment and Plan (1) Osteomyelitis: Status: Inactive Plan d4 88yo M with CAD s/p 3v CABG, HTN, HLD, BPH, hypothyroidism, gout recent osteomyelitis of R 1st toe s/p amputation 08/28/23 presented after fall, found to be septic due to osteomyelitis of R 2nd toe R 2nd toe osteomyellitis + ulcer - 02/20- vanco + pip-adry, follow BCx, ID consulted, plan PICC and 6 wk of IV ertapenem as pt declines amputation despite discussion with Gen Surg + ID that chance of cure is suboptimal - no significant PAD on dopplers Tn-I elevation - suspect demand due to sepsis; no EKG changes or ischemic symptoms; Cardiology consulted; no WMAs on TTE CAD - statin, metoprolol tartrate HTN - metoprolol tartrate, lisinopril hypothyroidism - continue LT4 BPH - continue tamsulosin gout - allopurinol VTE ppx - LMWH dispo - plan home with VNA In my clinical judgment, the patient requires continued inpatient hospitalization for the following reasons: IV ABX Total time managing care of this patient today: 35 minutes. Quality Stroke Does the patient have a stroke diagnosis?: No VTE Prior VTE?: No VTE Risk Level:: Medical - moderate - high VTE Device Contraindication: Treatment Not Indicated VTE Drug Contraindication: N/A - Med Ordered
--- NOTE | 2024-02-24 15:49 | MHC.CM.PN ---
CM DISCUSSED CASE W/RN, IR MAY NOT BE ABLE TO PLACE PICC LINE TODAY, PER HOSPITALIST WILL PLAN FOR PT TO DC TOMORROW W/[facility] AND RESUMP OF COMFORT PLUS VNA AFTER FIRST DOSE OF ERTAPENEM, FAMILY WILL TRANSPORT
[2024-02-24 16:22] LABS: Glucose, Whole Blood 95 mg/dL (60-115)
[2024-02-24 20:07] LABS: Glucose, Whole Blood 179 mg/dL (60-115)
[2024-02-24] MEDS: Enoxaparin Sodium 40 MG/0.4 ML SYRINGE SUBCUT (21:14)
[2024-02-24] MEDS: Tamsulosin HCL 0.4 MG CAPSULE PO (21:15)
[2024-02-24] MEDS: Finasteride 5 MG TABLET PO (21:15)
[2024-02-24] MEDS: Atorvastatin Calcium 10 MG TABLET PO (21:15)
[2024-02-25] MEDS: Piperacillin Sodium/Tazobactam 4.5 GM in 0.9 % Sodium Chloride 100 ML IV (03:12)
[2024-02-25] MEDS: Levothyroxine Sodium 75 MCG TABLET PO (05:27)
[2024-02-25 05:47] LABS: Creatinine Clr Calc Pharmacy 59.5; Estimated Glomerular Filt Rate > 60
[2024-02-25 07:49] VITALS: BP 125/59; PULSE 54; RESP 18; TEMP 36.6; O2SAT 96
[2024-02-25 07:56] LABS: Glucose, Whole Blood 107 mg/dL (60-115)
--- NOTE | 2024-02-25 10:39 | HO.PICC ---
PICC Line Insertion NPICC Diagnosis: Osteomyelitis Indication: usp antibiotics needed Pertinent Labs: reviewed Technique: Following informed consent including risks, benefits and alternatives and using sterile technique including cap and mask, sterile gown, glove and drape, the right arm was prepped and draped in the usual sterile fashion of full barrier technique with CHG. Following completion of Mccausland Protocol the skin and soft tissues were anesthetized with 1% Lidocaine plain. Using ultrasound guidance, right basilic vein access was obtained on second attempt. Over an 0.018 wire through peel-away sheath, a 5FR double lumen PASV PICC line was positioned. Catheter length is 38 CM internal length, 0 CM external length, for a total trimmed length of 38 CM. The procedure was performed in S272. Tip verification was performed by Mishel Cuevas with Volodymyr 3CG. Tip located in SVC. Ultrasound was used to document vein patency and for needle entry. A formal ultrasound picture and cardiac rhythm strip was recorded. [employer] Crypt[employer] Manager has released the line for use and it is currently dressed with a StatLock, Tegaderm, and CHG disc. Verification has been performed for blood return and line patency. Arm Circumference: 28 CM Equipment: [employer] PowerPICC SOLO Catheter Type: 5FRE double lumen PASV PICC Lot #: [id number]
--- NOTE | 2024-02-25 10:52 | MHC.CM.PN ---
IMM 02/25/24, PT MEDICALLY CLEARED FOR DC HOME W/[facility] FOR 6 WKS IV ABX AND [facility] FOR RESUMPTION OF SN/HOME PT, FAMILY AT BEDSIDE FOR TRANSPORT.
[2024-02-25 11:29] VITALS: BP 125/59; PULSE 54
[2024-02-25] MEDS: 0.9 % Sodium Chloride Flush 10 ML SYRINGE 5 ML IVFLUSH (11:29)
[2024-02-25] MEDS: Aspirin 81 MG TAB.CHEW PO (11:29)
[2024-02-25] MEDS: allopurinoL 300 MG TABLET PO (11:29)
[2024-02-25] MEDS: hydroCHLOROthiazide 25 MG TABLET PO (11:29)
[2024-02-25] MEDS: Metoprolol Tartrate 25 MG TABLET PO (11:29)
[2024-02-25] MEDS: Ertapenem Sodium 1 GM in 0.9 % Sodium Chloride 50 ML IV (11:35)
[2024-02-25 11:43] LABS: Glucose, Whole Blood 146 mg/dL (60-115)
--- NOTE | 2024-02-25 12:19 | P.DS_ITS ---
DS: Providers Provider Date of Service: 02/25/24 Date of admission: 02/21/24 22:45 Primary care physician: Fausto Leyva MD Consults: 02/21/24 22:55 Consult to Infectious Diseases Routine Consulting Provider: [facility] Reason for consultation: Recurrent osteomyelitis of right foot 02/21/24 23:19 Consult to General Surgery Routine Consulting Provider: [facility] [place] Reason for consultation: osteomyelitis of right foot 02/22/24 08:36 Consult to Cardiology Routine Consulting Provider: [facility] Reason for consultation: hsTn-I 61->[id number] 02/22/24 13:36 Consult to Wound Care Routine Reason for consultation: Right foot 2-nd toe ulcer,cellulitis,osteomyelitis DS: Diagnosis Discharge Diagnosis (1) Osteomyelitis: Status: Acute DS: Summary Hospital Course Hospital Course: HPI: Pt is an 88-year-old male with a PMH significant for?CAD s/p triple bypass, HTN, HLD, BPH, hypothyroidism, gout, and hx of osteomyelitis of 1st digit on right foot s/p amputation on 08/28/2023 who presents to the ED for evaluation?of fall at home. Patient reports he was in his normal state of health yesterday and when he awoke this morning, but earlier this afternoon when he went to get up from his recliner his ?legs gave out and patient fell to the floor. Denies any prodrome of lightheadedness or dizziness. No head strike. Denies loss of consciousness. Family was in the room next door who heard him calling for help. Patient attempted to use his walker to stand up on his own but lactose strength to do so. Family was able to place him on his scooter and wheel him into the bathroom where he again had difficulty standing after using the toilet and slid to the floor. Patient denies any trauma from fall. No headache. Denies neck, arm, shoulder, or hip pain. No chest pain/pressure, palpitations. No shortness a breath. Denies fever, chills, nausea, vomiting, abdominal pain. Patient's only presenting complaint is of minor right foot pain at amputation site. Patient has been experiencing persistent drainage from amputation site and had MRI of right foot which showed evidence of sinus tract extending from 1st metatarsal ostomy where there is evidence of osteomyelitis extending to the metatarsal base. Also found evidence concerning for early osteomyelitis of 2nd distal phalanx. Saw Dr. pSringer for follow-up on 01/25/2024 were reported drainage had improved significantly since MRI and patient wished wait to see if clinical improvement continued. Since last visit, however, patient's reports that 2nd digit on right foot has worsened significantly with foul-smelling and purulent drainage. In the ED pt with low-grade fever of 100.4, tachycardic up to 105, tachypneic up to 21, and soft BP as low as 125/54. Labs were significant for leukocytosis of 13.6, stable normocytic anemia of 11.5/33.9, and troponin 61.7. No significant electrolyte abnormalities. Renal and hepatic function baseline. X-ray of right foot, CT of head, and CT of cervical spine all pending. EKG demonstrated sinus rhythm with sinus arrhythmia and PVCs, but no evidence of significant ST elevations or depressions. Pt was treated with IVF, acetaminophen, Zosyn, and vanc. Pt will be admitted to the hospital for treatment and further evaluation left foot osteomyelitis Hospital course: Patient was admitted with IV antibiotics for right 2nd toe osteomyelitis. Was seen by General surgery but patient declined amputation. Infectious Disease was consulted. Chance of cure suboptimal but patient persistently declined amputation. PICC line inserted with plans for 6 weeks of IV ertapenem. Close follow-up with PCP. Patient is stable to be discharged home with VNA. Troponin was found to be elevated due to increased. Cardiology was consulted and no wall motion abnormality on VENTURA. Status at Discharge Functional status at discharge: independent ambulation Time Attestation Discharge Coordination Time (in mins): 40 minutes Quality: Safe Use of Opioids Does Pt have an Active Cancer Diagnosis on the Problem List?: No Quality: Stroke Does the patient have a stroke diagnosis?: No Physical Exam Vital Signs: Vital Signs: Last Vital Signs Temp 97.9 F 02/25/24 07:49 Pulse 54 02/25/24 11:29 Resp 18 02/25/24 07:49 BP 125/59 L 02/25/24 11:29 Pulse Ox 96 02/25/24 07:49 O2 Del Method Room Air 02/25/24 07:49 O2 Flow Rate 5 02/24/24 02:25 BMI result Body Mass Index 26.7 Gen: in no acute distress HEENT: sclera anicteric, moist mucus membranes Neck: supple Lungs: clear to auscultation bilaterally Heart: regular rate and rhythm, no murmurs Abd: soft, non-tender, non-distended Ext: no edema, healed R 1st toe amputation site, R 2nd toe with draining ulcer Skin: warm/well-perfused Neuro: alert and oriented x3, no focal findings Psych: appropriate affect DS: Data Data Completed and Pending Completed studies during hospitalization [Text1]: Procedures Detachment at Right 1st Toe, Complete, Open Approach (08/26/23) Labs on day of discharge: Laboratory Results - last 24 hr 02/24/24 02/24/24 02/25/24 16:18 20:03 05:07 Hold Purple Top SEE NOTE Creatinine 0.83 Estim Creat Clear Calc 59.5 Estimated GFR > 60 POC Glucose 95 179 H 02/25/24 02/25/24 07:51 11:40 Hold Purple Top Creatinine Estim Creat Clear Calc Estimated GFR POC Glucose 107 146 H Preliminary micro results at discharge 02/21/24 21:03 Blood Culture - Preliminary Blood - Venous No growth after 48 hours. 02/21/24 21:03 Blood Culture - Preliminary Blood - Venous No growth after 48 hours. Imaging Chest x-ray: Radiologist's impression: ITS Impressions Cervical Spine CT 02/21/24 20:45 IMPRESSION: No acute intracranial pathology. No acute fracture subluxation cervical spine. Head CT 02/21/24 20:45 IMPRESSION: No acute intracranial pathology. No acute fracture subluxation cervical spine. Foot X-Ray 02/21/24 20:55 IMPRESSION: 1. Radiographic findings most concerning for osteomyelitis of the second toe distal phalanx 2. Cortical irregularity at the great toe metatarsal may be due to healing of the previously seen osteomyelitis. Residual osteomyelitis remains possible. Arterial/Peripheral Duplex 02/23/24 11:34 IMPRESSION: There is no evidence of any hemodynamically significant lower extremity arterial disease by pressure, waveform or duplex Doppler criteria at rest. Discharge Plan Discharge Anticipated Discharge Date/Time: 02/25/24 12:16 Patient Disposition: Home Health Service Discharge Diagnosis: R 2nd toe osteomyellitis + ulcer Referrals: [facility] [Outside] - 1 Day (CORRECTION (6 WKS IV ANTIBIOTICS), HOME PHYSICAL THERAPY) Fausto Leyva MD [Primary Care Provider] - 1 Week Discharge Medications: New ertapenem 1 gram recon soln 1 g IV DAILY 42 Days Qty: 10 3RF Continued metoprolol tartrate 25 mg tablet 25 mg PO BID simvastatin 20 mg tablet 20 mg PO BEDTIME hydrochlorothiazide 25 mg tablet 25 mg PO DAILY levothyroxine 75 mcg capsule 75 mcg PO DAILY@0600 finasteride 5 mg tablet 5 mg PO DAILY allopurinol 300 mg tablet 300 mg PO DAILY tamsulosin 0.4 mg capsule 0.4 mg PO DAILY Discharge Orders: Discharge Order (Routine); Ordered 02/25/24 Ordered By: Cholo Goodson Diet: Low salt diet Activity on Discharge: As tolerated Stand Alone Forms: Patient Portal Discharge page Print Language: Montserratian Care Plan Goals: Follow-up with PCP in 1 week Health Concerns: Right 2nd toe osteomyelitis Plan of Treatment: Ertapenem 1 g IV x6 week Assessment: As above
--- NOTE | 2024-02-25 12:29 | W.MHC.F2F ---
Service Date Service Date: 02/25/24 Encounter Date of encounter: 02/25/24 Reasons for Services Signs and symptoms assessed: physcial deconditioning Reason for senior care: administration of IV, SQ, or IM injection, central line care, medication management and medication treatment Reason for physical therapy: home safety and mobility, therapeutic exercises, restore joint function, gait/transfer training, assess need for DME, ADL training and energy conservation Homebound: Leaving the home is medically contraindicated at this time without the asist of a device and/or another person due th the listed conditions above and below. Reason homebound: weakness related to hospital stay Certification: Based on the above findings, I certify that this patient is confined to the home and needs intermittent senior care care, physical therapy and/or speech therapy, or continues to need occupational therapy. The patient is under my care, and I have initiated the establishment of the plan of care. The patient will be followed by a physician who will periodically review the plan of care. Time Spent With Patient Time: Total time managing care of this patient today ____ minutes.
== END 2024-02-25 13:57 | disposition home health service (06) | DRG 872 ==
LOC: HO.ED 20:17 → HO.EDOVER 02-22 00:08 → HO.S3 02-22 07:25
PROVIDERS: Family Medicine; Student in an Organized Health Care Education/Training Program; Admitting Provider Student in an Organized Health Care Education/Training Program; Emergency Provider Internal Medicine; PCP Internal Medicine; Visit Provider Student in an Organized Health Care Education/Training Program
DX: A41.9 Sepsis, unspecified organism (principal); M86.9 Osteomyelitis, unspecified; I25.10 Atherosclerotic heart disease of native coronary artery without angina pectoris; E11.69 Type 2 diabetes mellitus with other specified complication; E11.621 Type 2 diabetes mellitus with foot ulcer; L97.519 Non-pressure chronic ulcer of other part of right foot with unspecified severity; N40.0 Benign prostatic hyperplasia without lower urinary tract symptoms; I10 Essential (primary) hypertension; M10.9 Gout, unspecified; E78.5 Hyperlipidemia, unspecified; R29.6 Repeated falls; E03.9 Hypothyroidism, unspecified; Z95.1 Presence of aortocoronary bypass graft; Z87.891 Personal history of nicotine dependence; Z79.890 Hormone replacement therapy; Z79.899 Other long term (current) drug therapy
CPT/HCPCS: 36415; 36573; 70450; 72125; 73620; 80048; 80053; 80202; 81003; 82565; 82947; 83036; 83605; 84484; 85025; 85027; 85652; 86140; 87040; 93005; 93306; 93922; 93925; 97161; 99285; C1751; J1335; J1650; J2543; J3370; J3371

== ENCOUNTER → 2024-02-21 20:09 | Outpatient (BNV) | payer MEDICARE, SELFPAY | PROVIDERS: Emergency Provider Internal Medicine; Visit Provider Student in an Organized Health Care Education/Training Program | DX: M86.9 Osteomyelitis, unspecified (principal) | CPT/HCPCS: 99223; 99232; 99239; G0180 ==

== ENCOUNTER 2024-02-21 22:45 | Outpatient (BNV) | payer MEDICARE, SELFPAY | END 2024-02-22 08:37 | PROVIDERS: Admitting Provider Student in an Organized Health Care Education/Training Program; Emergency Provider Internal Medicine; Visit Provider Internal Medicine Cardiovascular Disease | DX: I34.0 Nonrheumatic mitral (valve) insufficiency (principal); I35.8 Other nonrheumatic aortic valve disorders | CPT/HCPCS: 93010; 93306 ==

== ENCOUNTER → 2024-02-21 22:45 | Outpatient (BNV) | payer MEDICARE, SELFPAY | PROVIDERS: Admitting Provider Student in an Organized Health Care Education/Training Program; Emergency Provider Internal Medicine; Visit Provider Internal Medicine Cardiovascular Disease | DX: M86.9 Osteomyelitis, unspecified (principal); R79.89 Other specified abnormal findings of blood chemistry | CPT/HCPCS: 93010; 99223 ==

== ENCOUNTER → 2024-02-21 22:45 | Outpatient (BNV) | payer MEDICARE, SELFPAY | PROVIDERS: Admitting Provider Student in an Organized Health Care Education/Training Program; Emergency Provider Internal Medicine; PCP Internal Medicine; Visit Provider Surgery | DX: M86.9 Osteomyelitis, unspecified (principal) | CPT/HCPCS: 99222; 99231 ==

== ENCOUNTER → 2024-02-21 22:45 | Outpatient (BNV) | payer MEDICARE, SELFPAY | PROVIDERS: Admitting Provider Student in an Organized Health Care Education/Training Program; Emergency Provider Internal Medicine; PCP Internal Medicine; Visit Provider Internal Medicine | DX: M86.9 Osteomyelitis, unspecified (principal); I73.9 Peripheral vascular disease, unspecified | CPT/HCPCS: 99222 ==

== ENCOUNTER 2024-04-04 11:30 | Outpatient (AMB) | payer MEDICARE, SELFPAY ==
--- NOTE | 2024-04-04 11:30 | A.OFFVIS_ITS ---
Intake Visit Reasons: s/p right big toe amputation Intake Note: This patient presents for wound check, Hx right great toe amputation. Patient c/o; reports no complaints. 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 He has a previous amputation of the right big toe for osteomyelitis. I had seen him in the hospital last 02/22/2024 because of a draining ulcer on the 2nd toe on the right side. His imaging study had suggested osteomyelitis. He did not want to proceed with amputation at that time so I would instructed him to follow up in the office. He had been on IV antibiotics via a PICC line and this course is supposed to end this week. He says that the ulcer has been dry. He denies any significant pain or discharge. [facility] Medical History Elevated troponin Weakness Open wound Hypothyroidism BPH (benign prostatic hyperplasia) CAD (coronary artery disease) Gout HTN (hypertension) Peripheral vascular disease Surgical History Hx of surgical procedure (~08/28/23) S/P CABG (coronary artery bypass graft) Osteomyelitis Social History Household Members: Spouse Housing: House Do you presently have visiting nurse or other home services: Yes Patient Tobacco Use Status: Former Tobacco user Tobacco use type: Cigarette Advance Directives Date on File: 06/02/23 service: No Review of Systems Const Denies chills and Denies fever(s) Card Denies chest pain at rest Resp Denies cough GI Denies abdominal pain Denies dysuria Physical Exam Const General: comfortable and no acute distress Resp Effort & Inspection: normal respiratory effort Cardio Rate: regular rate GI Palpation (GI): Soft to palpation and nontender Extrem Other: - Second toe on the right: Ulcer has decreased in size markedly, no significant discharge at this time; the entire toe seems edematous but with no cellulitic changes, no tenderness Assessment & Plan Assessment & Plan (1) Osteomyelitis of second toe of left foot: Code(s): M86.9 - Osteomyelitis, unspecified Category: Medical Plan: He states that there has been significant improvement with regards to the ulcer. He denies any significant discharge. The ulcer itself has almost completely resolved There is still persistent edema of the entire toe. However, in view of the continued improvement, he wants to avoid toe amputation at this time. I told him that he is to keep monitoring the toe. I will see him again in the office in about 1 month. His family was comfortable with the plan Coding Level of Care Code Est Pt Level 3 (12563) Diagnoses Osteomyelitis of second toe of left foot M86.9
== END 2024-04-04 11:52 | disposition home or self-care (01) ==
PROVIDERS: PCP Internal Medicine; Visit Provider Surgery
DX: M86.9 Osteomyelitis, unspecified (principal)
CPT/HCPCS: 99213

== ENCOUNTER → 2024-04-04 11:30 | Outpatient (BNVA) | payer MEDICARE, SELFPAY | PROVIDERS: PCP Internal Medicine; Visit Provider Surgery | DX: M86.9 Osteomyelitis, unspecified (principal) | CPT/HCPCS: 99212 ==

== ENCOUNTER 2024-04-06 14:13 | Outpatient (AMB) | payer MEDICARE, SELFPAY ==
--- NOTE | 2024-04-06 14:14 | MHC.OFFVIS ---
Vital Signs 04/06/24 14:27 Pulse 60 Pulse Source Pulse Oximeter Temp 98.4 F Temp Source Oral Pulse Oximetry (%) 98 Oxygen Delivery Method Room Air Intake Visit Reasons: reff [facility] osteo ertapenem Allergies No Known Allergies Allergy (Verified 04/06/24 14:28) HPI HPI reff hmc osteo ertapenem: Details: He feels well He has no complaints. [facility] Medical History Elevated troponin Weakness Open wound Hypothyroidism BPH (benign prostatic hyperplasia) CAD (coronary artery disease) Gout HTN (hypertension) Peripheral vascular disease Surgical History Hx of surgical procedure (~08/28/23) S/P CABG (coronary artery bypass graft) Osteomyelitis Social History Household Members: Spouse Housing: House Do you presently have visiting nurse or other home services: Yes Patient Tobacco Use Status: Former Tobacco user Tobacco use type: Cigarette Advance Directives Date on File: 06/02/23 service: No Review of Systems Const All systems reviewed & are unremarkable except as noted in HPI and below Physical Exam Vital Signs: Last Vital Signs Temp 98.4 F 04/06/24 14:27 Pulse 60 04/06/24 14:27 Pulse Ox 98 04/06/24 14:27 Oxygen Delivery Method Room Air 04/06/24 14:27 Const General: cooperative Orientation/consciousness: patient oriented x3 HEENT Head: Yes normal to inspection Mouth: Normal oral and palatal mucosa present Eyes General: appearance normal, both eyes and all related structures Pupils: Equal, round and reactive pupils present Resp Effort & Inspection: normal respiratory effort Cardio Rate: regular rate Rhythm: regular rhythm GI Palpation (GI): Soft to palpation and nontender General: Yes no CVA tenderness Back/Spine/Pelvis Back: no CVA tenderness Skin General skin exam: no rashes or lesions noted Neuro General: patient oriented x3 Cranial nerves: Yes CN's II-XII intact bilaterally and Yes Equal, round and reactive pupils present Extrem General: Yes normal to inspection Psych Appearance: grossly normal Assessment & Plan Assessment & Plan (1) Osteomyelitis of second toe of left foot: Comment: Resolving Code(s): M86.9 - Osteomyelitis, unspecified Category: Medical Plan Remove PICC line. See Wound Care if needed. Coding Level of Care Code Est Pt Level 3 (80735) Diagnoses Osteomyelitis of second toe of left foot M86.9
[2024-04-06 14:27] VITALS: PULSE 60; TEMP 36.9; O2SAT 98
== END 2024-04-06 14:37 | disposition home or self-care (01) ==
LOC: HO.HID 14:13
PROVIDERS: PCP Internal Medicine; Visit Provider Internal Medicine
DX: M86.9 Osteomyelitis, unspecified (principal)
CPT/HCPCS: 99213

== ENCOUNTER → 2024-04-06 14:13 | Outpatient (BNVA) | payer MEDICARE, SELFPAY ==
--- NOTE | 2024-04-11 12:53 | PM.IDPN ---
Subjective Subjective Date of Service: 04/06/24 Critical Care Time (minutes): 15 Comment: He feels well and has no complaints Physical Exam Const: General: cooperative Orientation/consciousness: patient oriented x3 HEENT: Head: Yes normal to inspection Mouth: Normal oral and palatal mucosa present Eyes: General: appearance normal, both eyes and all related structures Pupils: Equal, round and reactive pupils present Resp: Effort & Inspection: normal respiratory effort Cardio: Rate: regular rate Rhythm: regular rhythm GI: Palpation (GI): Soft to palpation and nontender : General: Yes no CVA tenderness Back/Spine/Pelvis: Back: no CVA tenderness Skin: General skin exam: no rashes or lesions noted Neuro: General: patient oriented x3 Cranial nerves: Yes CN's II-XII intact bilaterally and Yes Equal, round and reactive pupils present Extrem: General: Yes normal to inspection Psych: Appearance: grossly normal Assessment and Plan Assessment and plan (1) Osteomyelitis of second toe of left foot: Status: Acute (2) Open wound: Problem details: Area foot stable Status: Acute Plan Stop IV antibiotics. Follow Wound Care if needed. Time Spent With Patient Time: Total time managing care of this patient today ____ minutes.
== END ==
PROVIDERS: PCP Internal Medicine; Visit Provider Internal Medicine
DX: M86.9 Osteomyelitis, unspecified (principal); T14.8XXA Other injury of unspecified body region, initial encounter
CPT/HCPCS: 99212; 99232

== ENCOUNTER 2024-05-05 11:36 | Outpatient (AMB) | payer MEDICARE, SELFPAY ==
--- NOTE | 2024-05-05 11:38 | A.OFFVIS_ITS ---
Intake Visit Reasons: 1 mth follow up s/p right big toe amputation Intake Note: This patient presents for a one month follow-up, wound check. Pt c/o; reports no complaints. Accompanied by: Family/Other Allergies No Known Allergies Allergy (Verified 05/05/24 11:44) Medication List - Last Reconciled 05/05/24 by Hank Springer MD allopurinol 300 mg PO DAILY ertapenem 1 g IV DAILY 6 weeks finasteride 5 mg PO DAILY hydrochlorothiazide 25 mg PO DAILY levothyroxine 75 mcg PO DAILY@0600 metoprolol tartrate 25 mg PO BID [orthotic shoes As directed] [shoe filler As directed] simvastatin 20 mg PO BEDTIME tamsulosin 0.4 mg PO DAILY HPI HPI 1 mth follow up s/p right big toe amputation: Details: His toe ulcer on the 2nd toe seems to have healed he says. His family says that this has dried up. He has been off IV antibiotics. [facility] Medical History Elevated troponin Weakness Open wound Hypothyroidism BPH (benign prostatic hyperplasia) CAD (coronary artery disease) Gout HTN (hypertension) Peripheral vascular disease Surgical History Hx of surgical procedure (~08/28/23) S/P CABG (coronary artery bypass graft) Osteomyelitis Social History Household Members: Spouse Housing: House Do you presently have visiting nurse or other home services: Yes Patient Tobacco Use Status: Former Tobacco user Tobacco use type: Cigarette Advance Directives Date on File: 06/02/23 service: No Review of Systems Const Denies chills and Denies fever(s) Card Denies chest pain at rest Resp Denies cough GI Denies abdominal pain Musc Reports abnormal gait Neuro Reports abnormal gait Physical Exam Const Other: Ambulates well with a walker General: comfortable and no acute distress Resp Effort & Inspection: normal respiratory effort Cardio Rate: regular rate Extrem Other: The ulcer on the 2nd toe on the right seems to have healed. This appears to be completely reepithelialized. There is no discharge. There is some mild edema of the toe. The amputation site on the 1st toe is well healed Assessment & Plan Assessment & Plan (1) Osteomyelitis of second toe of left foot: Comment: Resolving Code(s): M86.9 - Osteomyelitis, unspecified Category: Medical Plan: The ulcer seems to have resolved. It appears that the osteomyelitis may have of with IV antibiotics. I have changed his dressings. He can use a Band-Aid for this as the area seems dry. He can follow up on a p.r.n. basis. Coding Level of Care Code Est Pt Level 2 (43166) Diagnoses Osteomyelitis of second toe of left foot M86.9
== END 2024-05-05 11:49 | disposition home or self-care (01) ==
PROVIDERS: PCP Internal Medicine; Visit Provider Surgery
DX: M86.9 Osteomyelitis, unspecified (principal)
CPT/HCPCS: 99212

== ENCOUNTER → 2024-05-05 11:36 | Outpatient (BNVA) | payer MEDICARE, SELFPAY | PROVIDERS: PCP Internal Medicine; Visit Provider Surgery | DX: Z47.81 Encounter for orthopedic aftercare following surgical amputation (principal); Z89.411 Acquired absence of right great toe | CPT/HCPCS: 99212 ==